=== PATIENT | female | born 1950 | race Caucasian/White ===

== ENCOUNTER 2020-02-07 16:46 | Observation (INO) | payer OTHER ==
[2020-02-07] MEDS ORDERED: MORPHINE 4 MG/ML SYR ONE (17:02)
[2020-02-07] MEDS ORDERED: METOPROLOL TARTRATE 5 MG/5 ML INJ IV ONE (17:02)
[2020-02-07] MEDS ORDERED: ONDANSETRON 4 MG/2 ML VIAL ONE (17:02)
[2020-02-07] MEDS ORDERED: RSI MEDICATION KIT IV ONE (17:03)
[2020-02-07] MEDS ORDERED: ENOXAPARIN 80 MG/0.8 ML SQ ONE (17:05)
[2020-02-07 17:12] LABS: Absolute Lymphocytes (CBC) 0.9 K/uL (0.7-4.9); Basophils % 0.3 % (0-1.3); Hematocrit 49.4 % (36.0-45.0); Lymphocytes % 5.4 % (15.3-44.8); MPV 8.5 fL (7.6-11.3); RBC Red Blood Cell Count 5.23 M/uL (3.86-4.86)
[2020-02-07] MEDS ORDERED: ETOMIDATE 20 MG/10 ML VIAL IV ONE (17:12)
[2020-02-07] MEDS ORDERED: FENTANYL CITR 100 MCG/2 ML ONE (17:12)
[2020-02-07] MEDS ORDERED: NA CHLORIDE 0.9% 1,000 ML ONE (17:16)
[2020-02-07 17:34] LABS: Bilirubin Direct 1.8 mg/dL (0-0.2); Bilirubin Total 4.6 mg/dL (0.2-1.0); Magnesium 1.7 mg/dL (1.8-2.4); Potassium 3.8 mmol/L (3.5-5.1); Protein, Total 7.7 g/dL (6.4-8.2); Troponin (Emerg Dept Use Only) 0.13 ng/mL (0.0-0.045)
--- NOTE | 2020-02-07 17:34 | RAD REPORT ---
EXAM DESCRIPTION: RAD - Chest Single View - 02/07/2020 5:24 pm CLINICAL HISTORY: Chest pain;Dyspnea COMPARISON: June 2017 TECHNIQUE: AP portable chest image was obtained 02/07/2020 5:24 pmin supine positioning . FINDINGS: Lung volumes are low. Body habitus and under penetrated technique further limit the examin ation. Bilateral pleural effusions are present. Fluid is present along the right-side fissure. Resuscitation paddles overlie the left side of the chest. Cardiac silhouette is enlarged. Vascular engorgement is present. Trachea is midline. No measurable pleural effusion and no pneumothorax. No acute bony abnorm ality seen. No acute aortic findings suspected. IMPRESSION: Limited supine portable study showing CHF/ volume overload findings with bilateral pleur al effusions.
[2020-02-07 17:36] LABS: Protime INR 1.53
--- NOTE | 2020-02-07 18:07 | ER ---
Nurse's Notes [facility] Name: Aimee Flaherty Age: 69 yrs Sex: Female : 1950 Arrival Date: 02/07/2020 Time: 16:49 Bed 3 Private MD: Diagnosis: Atrial fibrillation and flutter;Non-ST elevation (NSTEMI) myocardial infarction;Unspecified systolic (congestive) heart failure Presentation: 02/06 16:49 Chief complaint: EMS states: CP and SOB since this morning. HR 95-160, ABP70s, R30s, ph SpO2 94% on RA, improved to 96% on 2LNC. Coronavirus screen: shortness of breath, Client presents with at least one sign or symptom that may indicate coronavirus-19. Standard/surgical mask placed on the client. Provider contacted for isolation considerations. Ebola Screen: No symptoms or risks identified at this time. Onset of symptoms was February 07, 2020. 16:49 Method Of Arrival: EMS: [facility] ph 16:49 Acuity: TISH 1 ph 17:24 Initial Sepsis Screen: Does the patient meet any 2 criteria? RR > 20 per min. HR > 90 ph bpm. Does the patient have a suspected source of infection? No. Patient's initial sepsis screen is negative. Risk Assessment: Do you want to hurt yourself or someone else? Patient reports no desire to harm self or others. Historical: - Allergies: 16:58 No Known Allergies; ph - Home Meds: 16:58 carvedilol Oral [Active]; Lovastatin Oral [Active]; ph - PMHx: 16:58 Cirrhosis; Hypertension; ph - PSHx: 16:58 cataracts; ph - Immunization history:: Adult Immunizations up to date. - Social history:: Smoking status: Patient denies any tobacco usage or history of. Screenin:23 Abuse screen: Denies threats or abuse. Denies injuries from another. Nutritional ph screening: No deficits noted. Tuberculosis screening: No symptoms or risk factors identified. Fall Risk None identified. Assessment: 17:00 General: Appears distressed, uncomfortable, well groomed, Behavior is cooperative, ph anxious, Denies fever, feeling ill. Pain: Complains of pain in chest, beneath alexander breast. Neuro: Level of Consciousness is awake, alert, obeys commands, Oriented to person, place, time, situation. Cardiovascular: Reports chest pain, lightheadedness, nausea, palpitations, shortness of breath, Capillary refill is sluggish Patient's skin is warm and dry. Rhythm is atrial fibrillation with rapid ventricular response Chest pain quality is heaviness, sharp, is located in right left anterior chest wall. Respiratory: Reports shortness of breath at rest Airway is patent Respiratory effort is even, shallow, Respiratory pattern is tachypnea Denies cough. GI: Reports nausea, Patient currently denies abdominal pain, vomiting. Derm: Skin is intact, is healthy with good turgor, Skin is pink, warm \T\ dry. Musculoskeletal: Circulation, motion, and sensation intact. Range of motion: intact in all extremities. 17:10 Reassessment: Dr Greer at bedside for cardioversion. ph 18:00 Reassessment: Patient appears in no apparent distress at this time. Pt AOx3, on personal cell phone talking to family. 18:52 Reassessment: Patient appears in no apparent distress at this time. Patient and/or ph family updated on plan of care and expected duration. Pain level reassessed. Patient is alert, oriented x 3, equal unlabored respirations, skin warm/dry/pink. Vital Signs: 16:49 Pulse 159; Resp 31; Pulse Ox 97% 2 lpm ; Weight 75 kg; ph 17:22 BP 100 / 71; Pulse 74; Resp 24; Pulse Ox 100% on Non-rebreather mask; Weight 76.2 kg; ph 18:00 BP 114 / 64; Pulse 82; Resp 27; Pulse Ox 98% on 2 lpm NC; hb 18:30 BP 95 / 68; Pulse 81; Resp 16; Pulse Ox 97% on 2 lpm NC; ph 18:52 BP 105 / 57; Pulse 81; Resp 18; Pulse Ox 96% on 2 lpm NC; ph 19:30 BP 103 / 63; Pulse 81; Resp 21; Temp 98.9; Pulse Ox 100% on 2 lpm NC; rv 20:00 BP 105 / 68; Pulse 80; Resp 20; Pulse Ox 98% on 2 lpm NC; rv 20:30 BP 105 / 64; Pulse 81; Resp 21; Temp 99; Pulse Ox 97% on 2 lpm NC; rv Vitals: 17:22 Cardiac Rhythm Assessment Regular. ph ED Course: 16:49 Patient arrived in ED. em1 16:49 EKG done, by ED staff, reviewed by Bret CARREON. dh3 16:55 Triage completed. ph 16:55 Inserted saline lock: 20 gauge in right antecubital area, using aseptic technique. ph Blood collected. 16:58 Arm band placed on. ph 16:58 Patient has correct armband on for positive identification. Placed in gown. Bed in low hb position. Call light in reach. Side rails up X 1. 17:00 Efraín Garvin PA is PHCP. cp 17:00 Gabino Greer MD is Attending Physician. cp 17:10 Assist provider with cardioversion (synchronized) with pads, for treatment of A fib ph with 200 joules Set up for procedure. Performed by Gabino Greer MD Monitored with desk monitor, pulse ox, Post procedure rhythm is sinus rhythm. Patient tolerated well. Oxygen administration via non-rebreather mask \T\ 15L/min. 17:15 Gabino Greer MD is Attending Physician. kdr 17:17 Alida Christianson, TAMMI is Primary Nurse. ph 17:17 Inserted saline lock: 18 gauge in left wrist, using aseptic technique. hb 17:24 XRAY Chest (1 view) In Process Unspecified. EDMS 18:05 Yuriy Crockett DO is Hospitalizing Provider. kdr 20:49 IV is patent, with fluids infusing freely, Patient admitted, IV remains in place. rv Administered Medications: 16:52 Drug: Lopressor 5 mg Route: IVP; Site: right antecubital; ph 16:55 Drug: Zofran (Ondansetron) 4 mg Route: IVP; Site: right antecubital; ph 18:54 Follow up: Response: No adverse reaction ph 16:56 Drug: morphine 2 mg Route: IVP; Site: right antecubital; ph 17:30 Follow up: Response: No adverse reaction ph 16:57 Drug: Lovenox 1 mg/kg Route: Sub-Q; Site: abdomen; ph 18:54 Follow up: Response: No adverse reaction ph 16:58 Drug: Lopressor 5 mg Route: IVP; Site: right antecubital; hb 17:00 Follow up: Response: No adverse reaction; Cardiac rhythm is unchanged ph 17:00 Drug: Lopressor 5 mg Route: IVP; Site: right antecubital; ph 17:05 Follow up: Response: No adverse reaction; Cardiac rhythm is unchanged ph 17:08 Drug: fentaNYL (PF) 50 mcg Route: IVP; Site: right antecubital; ph 18:55 Follow up: Response: No adverse reaction ph 17:09 Drug: Etomidate 10 mg Route: IVP; Site: right antecubital; ph 17:10 Follow up: Response: No adverse reaction; RASS: Light sedation (-2) ph Outcome: 18:07 Decision to Hospitalize by Provider. kdr 20:48 Admitted to Tele accompanied by tech, via stretcher, room 404, with chart, Report rv called to CATALINA CADENA 20:48 Condition: stable 20:48 Instructed on the need for admit. 20:49 Patient left the ED. rv Signatures: Dispatcher [employer] Gabino Pyle MD MD kdr Martinez, Eric em1 Alida Christianson RN RN Efraín Brandon PA PA cp Baxter, Heather, RN RN Radha Bellamy [facility] Naga Ho, RN RN rv
--- NOTE | 2020-02-07 18:07 | EDPHYS ---
Physician Documentation [facility] Name: Aimee Flaherty Age: 69 yrs Sex: Female : 1950 Arrival Date: 02/07/2020 Time: 16:49 Bed 3 Private MD: ED Physician Gabino Greer HPI: 02/06 18:07 This 69 yrs old Female presents to ER via EMS with complaints of Breathing kdr Difficulty, Chest Pain. 18:07 The patient has shortness of breath at rest. Onset: The symptoms/episode began/occurred kdr this morning, On awakening. Duration: The symptoms are continuous, and are steadily getting worse. The patient's shortness of breath has no apparent modifying factors. Associated signs and symptoms: The patient has no apparent associated signs or symptoms. Severity of symptoms: At their worst the symptoms were moderate severe incapacitating. The patient has not experienced similar symptoms in the past. The patient has not recently seen a physician. Historical: - Allergies: 16:58 No Known Allergies; ph - Home Meds: 16:58 carvedilol Oral [Active]; Lovastatin Oral [Active]; ph - PMHx: 16:58 Cirrhosis; Hypertension; ph - PSHx: 16:58 cataracts; ph - Immunization history:: Adult Immunizations up to date. - Social history:: Smoking status: Patient denies any tobacco usage or history of. ROS: 18:07 Constitutional: Negative for fever, chills, and weight loss, Eyes: Negative for injury, kdr pain, redness, and discharge, ENT: Negative for injury, pain, and discharge, Neck: Negative for injury, pain, and swelling, Abdomen/GI: Negative for abdominal pain, nausea, vomiting, diarrhea, and constipation, Back: Negative for injury and pain, : Negative for injury, bleeding, discharge, and swelling, MS/Extremity: Negative for injury and deformity, Skin: Negative for injury, rash, and discoloration, Neuro: Negative for headache, weakness, numbness, tingling, and seizure activity. Exam: 02/07 14:21 Constitutional: This is a well developed, well nourished patient who is awake, alert, kdr and in moderate distress. Head/Face: Normocephalic, atraumatic. Eyes: Pupils equal round and reactive to light, extra-ocular motions intact. Lids and lashes normal. Conjunctiva and sclera are non-icteric and not injected. Cornea within normal limits. Periorbital areas with no swelling, redness, or edema. Neck: Trachea midline, no thyromegaly or masses palpated, and no cervical lymphadenopathy. Supple, full range of motion without nuchal rigidity, or vertebral point tenderness. No Meningismus. Chest/axilla: Normal chest wall appearance and motion. Nontender with no deformity. No lesions are appreciated. Abdomen/GI: Soft, non-tender, with normal bowel sounds. No distension or tympany. No guarding or rebound. No evidence of tenderness throughout. Back: No spinal tenderness. No costovertebral tenderness. Full range of motion. Skin: Warm, dry with normal turgor. Normal color with no rashes, no lesions, and no evidence of cellulitis. MS/ Extremity: Pulses equal, no cyanosis. Neurovascular intact. Full, normal range of motion. Neuro: Awake and alert, GCS 15, oriented to person, place, time, and situation. Cranial nerves II-XII grossly intact. Motor strength 5/5 in all extremities. Sensory grossly intact. Cerebellar exam normal. Normal gait. Psych: Awake, alert, with orientation to person, place and time. Behavior, mood, and affect are within normal limits. Cardiovascular: Rate: tachycardic, actual rate is 140 bpm, Rhythm: irregularly irregular, Pulses: thready, weak, Heart sounds: Edema: 1+ edema to level of left midcalf, left ankle, left foot, right midcalf, right ankle and right foot. ECG was reviewed by the Attending Physician. Respiratory: moderate respiratory distress is noted, Respirations: labored breathing, that is mild, Breath sounds: rales, that are mild, are heard diffusely. Abdomen/GI: Inspection: obese Bowel sounds: active, diminished, in all quadrants. Vital Signs: 02/06 16:49 Pulse 159; Resp 31; Pulse Ox 97% 2 lpm ; Weight 75 kg; ph 17:22 BP 100 / 71; Pulse 74; Resp 24; Pulse Ox 100% on Non-rebreather mask; Weight 76.2 kg; ph 18:00 BP 114 / 64; Pulse 82; Resp 27; Pulse Ox 98% on 2 lpm NC; hb 18:30 BP 95 / 68; Pulse 81; Resp 16; Pulse Ox 97% on 2 lpm NC; ph 18:52 BP 105 / 57; Pulse 81; Resp 18; Pulse Ox 96% on 2 lpm NC; ph 19:30 BP 103 / 63; Pulse 81; Resp 21; Temp 98.9; Pulse Ox 100% on 2 lpm NC; rv 20:00 BP 105 / 68; Pulse 80; Resp 20; Pulse Ox 98% on 2 lpm NC; rv 20:30 BP 105 / 64; Pulse 81; Resp 21; Temp 99; Pulse Ox 97% on 2 lpm NC; rv Procedures: 02/07 14:21 Moderate sedation: Pre-procedure assessment: the patient has been NPO an unknown amount kdr of time prior to arrival, ASA physical classification: III - organic disease with definite functional impairment, Airway assessment: able to maintain airway, Mallampati classification of tongue size: III - uvula can be visualized, but faucial pillars and soft palate are not appreciated, Monitoring during procedure: Medications employed: Etomidate, 10 mg(s), Fentanyl, 50 mcg(s), Post-procedure assessment: the patient is moderately sedated, Respiratory status: requires supplemental oxygen to maintain acceptable oxygen saturation, a reversal agent was not used. MDM: 02/06 18:07 Patient medically screened. kdr 02/07 14:21 Data reviewed: vital signs, nurses notes, lab test result(s), EKG, radiologic studies. kdr Counseling: I had a detailed discussion with the patient and/or guardian regarding: the historical points, exam findings, and any diagnostic results supporting the discharge/admit diagnosis, lab results, radiology results. 02/06 16:55 Order name: Basic Metabolic Panel; Complete Time: 18:04 ph 02/06 16:55 Order name: CBC with Diff ph 02/06 16:55 Order name: LFT's; Complete Time: 18:04 ph 02/06 16:55 Order name: Magnesium; Complete Time: 18:04 ph 02/06 16:55 Order name: NT PRO-BNP; Complete Time: 18:04 ph 02/06 16:55 Order name: PT-INR; Complete Time: 18:04 ph 02/06 16:55 Order name: Troponin (emerg Dept Use Only); Complete Time: 18:04 ph 02/06 16:55 Order name: XRAY Chest (1 view); Complete Time: 18:04 ph 02/06 19:45 Order name: CBC Smear Scan EDMS 02/06 20:06 Order name: COVID-19 bb 02/06 16:55 Order name: EKG; Complete Time: 16:56 ph 02/06 16:55 Order name: Cardiac monitoring; Complete Time: 16:57 ph 02/06 16:55 Order name: EKG - Nurse/Tech; Complete Time: 16:57 ph 02/06 16:55 Order name: IV Saline Lock; Complete Time: 16:58 ph 02/06 16:55 Order name: Labs collected and sent; Complete Time: 16:58 ph 02/06 16:55 Order name: O2 Per Protocol; Complete Time: 16:58 ph 02/06 16:55 Order name: O2 Sat Monitoring; Complete Time: 16:58 ph EC:21 Rate is 140 beats/min. Rhythm is irregularly irregular, A fib with Left bundle branch kdr block. QRS [address] is Normal. MO interval is normal. QRS interval is normal. QT interval is normal. Clinical impression: Atrial Fibrillation. Administered Medications: 02/06 16:52 Drug: Lopressor 5 mg Route: IVP; Site: right antecubital; ph 16:55 Drug: Zofran (Ondansetron) 4 mg Route: IVP; Site: right antecubital; ph 18:54 Follow up: Response: No adverse reaction ph 16:56 Drug: morphine 2 mg Route: IVP; Site: right antecubital; ph 17:30 Follow up: Response: No adverse reaction ph 16:57 Drug: Lovenox 1 mg/kg Route: Sub-Q; Site: abdomen; ph 18:54 Follow up: Response: No adverse reaction ph 16:58 Drug: Lopressor 5 mg Route: IVP; Site: right antecubital; hb 17:00 Follow up: Response: No adverse reaction; Cardiac rhythm is unchanged ph 17:00 Drug: Lopressor 5 mg Route: IVP; Site: right antecubital; ph 17:05 Follow up: Response: No adverse reaction; Cardiac rhythm is unchanged ph 17:08 Drug: fentaNYL (PF) 50 mcg Route: IVP; Site: right antecubital; ph 18:55 Follow up: Response: No adverse reaction ph 17:09 Drug: Etomidate 10 mg Route: IVP; Site: right antecubital; ph 17:10 Follow up: Response: No adverse reaction; RASS: Light sedation (-2) ph Disposition: 02/07 14:21 Critical Care:. kdr Disposition: 02/07/20 18:07 Hospitalization ordered by Yuriy Crockett for Observation. Preliminary diagnosis are Atrial fibrillation and flutter, Non-ST elevation (NSTEMI) myocardial infarction, Unspecified systolic (congestive) heart failure. - Bed requested for Telemetry/MedSurg (Inpatient). - Status is Observation. rv - Condition is Fair. - Problem is new. - Symptoms have improved. Critical care time excluding procedures: 14:21 Critical care time: Bedside Care: 45 minutes, Consultation: 5 minutes. Total time: 50 kdr minutes Signatures: Dispatcher [employer] EDMS Gabino Greer MD MD kdr Edd Hadley, CERTIFIED REAL ESTATE APPRAISER-C CERTIFIED REAL ESTATE APPRAISER-Cla1 Alida Christianson RN RN Wanda Campoverde RN RN Renee Leal mw2 Naga Ho RN RN rv Corrections: (The following items were deleted from the chart) 02/06 20:28 18:07 Hospitalization Ordered by Yuriy Crockett DO for Observation. Preliminary mw2 diagnosis is Atrial fibrillation and flutter; Non-ST elevation (NSTEMI) myocardial infarction; Unspecified systolic (congestive) heart failure. Bed requested for Telemetry/MedSurg (Inpatient). Status is Observation. Condition is Fair. Problem is new. Symptoms have improved. kdr 20:49 20:28 02/07/2020 18:07 Hospitalization Ordered by Yuriy Crockett DO for Observation. rv Preliminary diagnosis is Atrial fibrillation and flutter; Non-ST elevation (NSTEMI) myocardial infarction; Unspecified systolic (congestive) heart failure. Bed requested for Telemetry/MedSurg (Inpatient). Status is Observation. Condition is Fair. Problem is new. Symptoms have improved. mw2
--- NOTE | 2020-02-07 19:12 | P.HP ---
Certification for Inpatient Patient admitted to: Observation With expected LOS: <2 Midnights Patient will require the following post-hospital care: None Practitioner: I am a practitioner with admitting privileges, knowledge of patient current condition, hospital course, and medical plan of care. Services: Services provided to patient in accordance with Admission requirements found in Title 42 Section 412.3 of the Code of Federal Regulations <Edd Hadley - Last Filed: 02/07/20 19:05> Patient admitted to: Observation With expected LOS: <2 Midnights <Yuriy Crockett - Last Filed: 02/08/20 14:25> Patient History Date of Service: 02/07/20 Primary Care Provider: PCP-Dr. Joiner cardiology-Dr. Reynolds Reason for admission: AFib RVR History of Present Illness: 69-year-old female with history of chronic diastolic congestive heart failure, alcoholic cirrhosis of the liver, hypertension presents emergency department for shortness of breath and generalized weakness. Patient was found to have elevated heart rate at around 170. Initial EKG shows irregularly irregular rhythm that was interpreted as atrial fibrillation with rapid ventricular response and aberrancy. Patient required electrical cardioversion. After cardioversion patient was successfully converted to sinus rhythm with a rate of around 75. Patient's labs were significant for elevated troponin level at 0.13. Patient also noted to have elevated T bili level likely secondary to alcoholic cirrhosis. ED provider wishes to admit patient for further evaluation and management. When I saw the patient in the emergency department she was awake, alert, oriented x3. Vital signs stable this time. Patient be admitted for further evaluation and management. Patient denies any GI symptoms, melena, vomiting. - Past Medical/Surgical History Diabetic: No -: Alcoholic cirrhosis -: Hypertension -: Hyperlipidemia -: Iron def. Anemia -: Esophageal varices -: GERD -: Murmur -: Chronic diastolic congestive heart failure -: Cataract -: Colonoscopy -: EGD Psychosocial/ Personal History: Patient currently lives at home - Family History Father -: Heart disease Notes: heart attack Brother -: Heart disease Notes: CAD Mother -: Hypertension - Social History Smoking Status: Never smoker Alcohol use: Yes CD- Drugs: No Caffeine use: Yes Place of Residence: Home <Edd Hadley - Last Filed: 02/07/20 19:05> Date of Service: 02/08/20 <Yuriy Crockett - Last Filed: 02/08/20 14:25> Allergies No Known Allergies Allergy (Unverified 06/30/17 11:42) Home Medications: Pantoprazole Sodium [Protonix] 40 mg PO DAILY #30 tablet. 07/14/14 Apixaban [Eliquis] 5 mg PO BID #60 tablet 02/08/20 Furosemide [Lasix] 40 mg PO DAILY #30 tablet 02/08/20 Metoprolol Tartrate [Lopressor*] 25 mg PO BID 6AM 6PM #60 tab 02/08/20 Spironolactone [Aldactone*] 25 mg PO DAILY #30 tab 02/08/20 Review of Systems 10-point ROS is otherwise unremarkable General: Weakness, Malaise <Edd Hadley - Last Filed: 02/07/20 19:05> Physical Examination - Physical Exam General: Alert, In no apparent distress, Oriented x3 HEENT: Atraumatic, Normocephalic, PERRLA, Mucous membr. moist/pink Neck: Supple Respiratory: Clear to auscultation bilaterally, Diminished (Bilaterally) Cardiovascular: Normal pulses, Regular rate/rhythm, Normal S1 S2 Capillary refill: <2 Seconds Gastrointestinal: Normal bowel sounds, Soft and benign Musculoskeletal: No contractures, No erythema, No tenderness Integumentary: No significant lesion, No tenderness/swelling, No erythema Neurological: Normal speech, Normal strength at 5/5 x4 extr, Normal tone, Sensation intact - Studies Laboratory Data (last 24 hrs) 02/07/20 17:01: PT 17.9 H, INR 1.53 02/07/20 17:01: WBC 16.9 H, Hgb 16.3 H, Hct 49.4 H, Plt Count 142 L 02/07/20 17:01: Sodium 139, Potassium 3.8, BUN 18, Creatinine 1.14, Glucose 111 H, Magnesium 1.7 L, Total Bilirubin 4.6 H, AST 38 H, ALT 29, Alkaline Phosphatase 138 H <Edd Hadley - Last Filed: 02/07/20 19:05> - Studies Laboratory Data (last 24 hrs) 02/07/20 17:01: PT 17.9 H, INR 1.53 02/07/20 17:01: WBC 16.9 H, Hgb 16.3 H, Hct 49.4 H, Plt Count 142 L 02/07/20 17:01: Sodium 139, Potassium 3.8, BUN 18, Creatinine 1.14, Glucose 111 H, Magnesium 1.7 L, Total Bilirubin 4.6 H, AST 38 H, ALT 29, Alkaline Phosphatase 138 H <Yuriy Crockett - Last Filed: 02/08/20 14:25> Assessment and Plan - Plan Assessment AFib RVR S/P electrical cardioversion, now in sinus rhythm: Chronic diastolic congestive heart failure Alcoholic cirrhosis Hypertension Hyperlipidemia Plan AFib RVR S/P electrical cardioversion, now in sinus rhythm: Patient now in sinus rhythm, troponin mildly elevated at 0.13. Will trend troponin levels, cardiology consult in place. Echocardiogram ordered. Will continue with beta- carlos therapy metoprolol 25 mg p.o. b.i.d.. Will also initiate daily aspirin at this time. Patient be monitored on telemetry throughout this hospitalization. DVT prophylaxis Lovenox 40 mg subcutaneous once daily. Appreciate further input from cardiology. Possible discharge as early as tomorrow. Chronic diastolic congestive heart failure: Most recent echocardiogram in 2018 shows left ventricular ejection fraction of 77%. Will repeat echocardiogram. Appreciate further input from cardiology. Alcoholic cirrhosis: Appears stable this time, will continue to monitor closely. Patient alert, oriented x3. No signs of GI bleeding at this time. Hypertension: Obtain and continue patient's home medications. Continue beta- carlos therapy. Hyperlipidemia: Obtain and continue patient's home medications. Discharge Plan: Home Plan to discharge in: 24 Hours - Advance Directives Does patient have a Living Will: No Does patient have a Durable POA for Healthcare: No - Code Status/Comfort Care Code Status Assessed: Yes (Patient is full code) Critical Care: No Time Spent Managing Pts Care (In Minutes): 55 <Edd Hadley - Last Filed: 02/07/20 19:05> - Plan Case discussed in detail with nurse practitioner. Continue with plan of care. Discontinue IV fluids. Will provide Lasix. <Yuriy Crockett - Last Filed: 02/08/20 14:25>
[2020-02-07 19:45] LABS: Blood Morphology Comment NOT SEEN (NOT SEEN); Platelet Estimate ADEQ; White Blood Cell Scan OK (OK)
[2020-02-07] MEDS ORDERED: ACETAMINOPHEN 500 MG TAB PO PRN (21:27)
[2020-02-07] MEDS ORDERED: NA CHLORIDE 0.9% 1,000 ML IV SCH (21:27)
[2020-02-07] MEDS ORDERED: ONDANSETRON 4 MG/2 ML VIAL IV PRN (21:27)
[2020-02-07] MEDS ORDERED: MAGNESIUM SULFATE 1 gm IVPB 1 GM/100 ML BAG IV ONE (23:24)
[2020-02-07 23:33] VITALS: BMI 31.8
[2020-02-08 04:08] LABS: Potassium 3.8 mmol/L (3.5-5.1); Thyroid Stimulating Hormone 0.934 uIU/mL (0.360-3.740)
[2020-02-08 04:09] LABS: Absolute Lymphocytes (CBC) 0.6 K/uL (0.7-4.9); Basophils % 0.4 % (0-1.3); Hematocrit 45.8 % (36.0-45.0); MPV 8.9 fL (7.6-11.3); RBC Red Blood Cell Count 4.86 M/uL (3.86-4.86)
[2020-02-08 04:35] LABS: Barbiturates NEGATIVE (NEGATIVE); Benzodiazepines NEGATIVE (NEGATIVE); Cocaine NEGATIVE (NEGATIVE); METHAMPHETAM NEGATIVE (NEGATIVE); Methadone NEGATIVE (NEGATIVE); Opiates NEGATIVE (NEGATIVE); Phencyclidine NEGATIVE (NEGATIVE); THC Cannibis NEGATIVE (NEGATIVE)
[2020-02-08] MEDS ORDERED: METOPROLOL TAR 25 MG TAB PO SCH (06:00)
[2020-02-08 08:11] VITALS: O2SAT 92
[2020-02-08] MEDS ORDERED: ASPIRIN EC 81 MG TAB PO SCH (09:00)
[2020-02-08] MEDS: FUROSEMIDE 40 MG/4 ML VIAL IV SCH ×2 (09:00→09:41)
[2020-02-08] MEDS ORDERED: SPIRONOLACTONE 25 MG TABLET PO SCH (09:00)
[2020-02-08] MEDS ORDERED: FUROSEMIDE 40 MG/4 ML VIAL IV SCH (09:00)
--- NOTE | 2020-02-08 09:37 | RAD REPORT ---
EXAM DESCRIPTION: US - Liver Only - 02/08/2020 7:42 am CLINICAL HISTORY: Elevated Liver fxn, Elevated Bilirubin COMPARISON: No comparisons FINDINGS: The liver is heterogenous in echotexture with a nodular liver contour and is somewhat smal l in size compatible with liver cirrhosis.No focal liver lesion or intrahepatic biliary dilatation.No evidence of portal vein thrombosis. Numerous gallstones are seen in the gallbladder. IMPRESSION: Prominent liver cirrhosis. Cholelithiasis.
--- NOTE | 2020-02-08 11:11 | EKG ---
Test Date: 2020-02-07 Test Time: 17:11:03 [place] [employer]: MEASUREMENT RESULTS: Intervals: Rate: 74 LA: 184 QRSD: 124 QT: 426 QTc: 472 [place]: P: 50 LA: 184 QRS: 22 T: 243 INTERPRETIVE STATEMENTS: Normal sinus rhythm Left bundle branch block Abnormal ECG Compared to ECG 02/07/2020 17:10:05 Atrial flutter no longer present Electronically Signed On 02-08-20 11:10:15 CDT by Prakash Reynolds
--- NOTE | 2020-02-08 11:12 | EKG ---
Test Date: 2020-02-07 Test Time: 17:10:05 Reservations Manager: MEASUREMENT RESULTS: Intervals: Rate: 69 OR: QRSD: 122 QT: 418 QTc: 447 [place]: P: 76 OR: QRS: 21 T: 189 INTERPRETIVE STATEMENTS: Atrial flutter with variable AV block Left bundle branch block Abnormal ECG Compared to ECG 02/07/2020 16:49:16 Atrial fibrillation no longer present Ventricular premature complex(es) no longer present Electronically Signed On 02-08-20 11:10:16 CDT by Prakash Reynolds
--- NOTE | 2020-02-08 11:12 | EKG ---
Test Date: 2020-02-07 Test Time: 16:49:16 Income Tax Manager: RADHA MEASUREMENT RESULTS: Intervals: Rate: 162 GA: QRSD: 134 QT: 320 QTc: 525 [place]: P: GA: QRS: -10 T: 153 INTERPRETIVE STATEMENTS: Atrial fibrillation with rapid ventricular response with premature ventricular or aberrantly conducted complexes Left bundle branch block Abnormal ECG Compared to ECG 05/10/2018 10:55:35 Ventricular premature complex(es) now present Left bundle-branch block now present Sinus rhythm no longer present Intraventricular conduction delay no longer present Myocardial infarct finding no longer present T-wave abnormality no longer present Electronically Signed On 02-08-20 11:10:17 CDT by Prakash Reynolds
--- NOTE | 2020-02-08 11:26 | ECHO ---
HEIGHT: 5 ft 1 in WEIGHT: 168 lb 4.8 oz DATE OF STUDY: 02/08/[address]: Yuriy Crockett DO 2-DIMENSIONAL: YES M.MODE: YES DOPPLER: YES COLOR FLOW: YES TDS: YES PORTABLE: NO DEFINITY: NO BUBBLE STUDY: NO DIAGNOSIS: ATRIAL FIBRILLATION WITH RAPID VENTRICULAR RESPONSE, ELEVATED TROPONIN CARDIAC HISTORY: CATHERIZATION: NO SURGERY: NO PROSTHETIC VALVE: NO PACEMAKER: NO MEASUREMENTS (cm) DIASTOLIC (NORMALS) SYSTOLIC (NORMALS) IVSd 1.0 (0.6-1.2) LA Diam 3.8 (1.9-4.0) LVEF 66% LVIDd 2.3 (3.5-5.7) LVIDs 1.5 (2.0-3.5) %FS 34% LVPWd 1.2 (0.6-1.2) Ao Diam 2.1 (2.0-3.7) 2 DIMENSIONAL ASSESSMENT: RIGHT ATRIUM: NORMAL LEFT ATRIUM: NORMAL RIGHT VENTRICLE: NORMAL LEFT VENTRICLE: NORMAL TRICUSPID VALVE: NORMAL MITRAL VALVE: MITRAL ANNULAR CALCIFICATION PULMONIC VALVE: NORMAL AORTIC VALVE: SCLEROSIS PERICARDIAL EFFUSION: NONE AORTIC ROOT: NORMAL LEFT VENTRICULAR WALL MOTION: NORMAL DOPPLER/COLOR FLOW: NORMAL COMMENTS: TECHNICALLY DIFFICULT STUDY. NORMAL LEFT VENTRICULAR SIZE AND FUNCTION. MITRAL ANNULAR CALCIFICATION. AORTIC SCLEROSIS WITH NO STENOSIS. TECHNOLOGIST: Chance MALONEY
[2020-02-08 12:11] VITALS: BP 132/65; TEMP 97.7
--- NOTE | 2020-02-08 14:15 | P.DS ---
Admission Date: 02/07/20 Discharge Date: 02/08/20 Primary Care Provider: PCP-Dr. Joiner cardiology-Dr. Reynolds Disposition: ROUTINE DISCHARGE Discharge Condition: GOOD Reason for Admission: AFib RVR Consultations: Cardiology-Dr. Reynolds Procedures: ECHO: EF 56% LEFT VENTRICULAR WALL MOTION: NORMAL DOPPLER/COLOR FLOW: NORMAL COMMENTS: TECHNICALLY DIFFICULT STUDY. NORMAL LEFT VENTRICULAR SIZE AND FUNCTION. MITRAL ANNULAR CALCIFICATION. AORTIC SCLEROSIS WITH NO STENOSIS. Liver US: FINDINGS: The liver is heterogenous in echotexture with a nodular liver contour and is somewhat small in size compatible with liver cirrhosis.No focal liver lesion or intrahepatic biliary dilatation.No evidence of portal vein thrombosis. Numerous gallstones are seen in the gallbladder. IMPRESSION: Prominent liver cirrhosis. Cholelithiasis. Medical Problem List: Atrial fibrillation with RVR status post cardioversion now normal sinus rhythm Dyspnea secondary to acute on chronic diastolic CHF Chronic liver cirrhosis alcohol-related GERD Obesity BMI 31.8 Brief History of Present Illness: 69-year-old female with history of chronic diastolic congestive heart failure, alcoholic cirrhosis of the liver, hypertension presents emergency department for shortness of breath and generalized weakness. Patient was found to have elevated heart rate at around 170. Initial EKG shows irregularly irregular rhythm that was interpreted as atrial fibrillation with rapid ventricular response and aberrancy. Patient required electrical cardioversion. After cardioversion patient was successfully converted to sinus rhythm with a rate of around 75. Patient's labs were significant for elevated troponin level at 0.13. Patient also noted to have elevated T bili level likely secondary to alcoholic cirrhosis. ED provider wishes to admit patient for further evaluation and management. Hospital Course: Patient presented with atrial fibrillation with RVR. Patient required electrical cardioversion. Patient now normal sinus rhythm. Patient also had dyspnea secondary to acute on chronic diastolic CHF. The patient was admitted for further evaluation and treatment. Cardiology was consulted. Echocardiogram shows ejection fraction 60%. Diastolic dysfunction noted. Cardiology recommends to discontinue aspirin and carvedilol. Patient was changed over to Eliquis and metoprolol. Patient in sinus rhythm. Patient received IV Lasix with improvement of symptoms. At discharge she is without significant chest pain or shortness of breath. Patient remains in sinus rhythm. At discharge she discontinue aspirin and carvedilol. This has been changed to metoprolol 25 mg 1 pill twice daily and Eliquis 5 mg 1 pill twice daily. Education on medications provided. Education on atrial fibrillation and Eliquis has been given. At discharge she will also continue with a 1500 cc per day fluid restriction and low-salt diet. Recommend to monitor her weight daily. For her CHF she will continue with Lasix 40 mg daily and Aldactone 25 mg daily. She is to follow up with her PCP to further monitor and address. Medication may need to be further adjusted. This can be further addressed by her PCP or cardiology. Patient with underlying alcoholic cirrhosis. Ultrasound of the liver indicated this. This appears chronic. Alcohol cessation education provided and encouraged. As mentioned above patient will continue with 1500 cc per day fluid restriction. She will continue with Lasix and Aldactone as described above. Recommend follow up with GI as an outpatient to further address. Patient with GERD. At discharge she will continue with Protonix 40 mg daily. Vital Signs/Physical Exam: Temp Pulse Resp BP Pulse Ox 97.7 F 69 16 132/65 92 02/08/20 12:00 02/08/20 12:00 02/08/20 12:00 02/08/20 12:00 02/08/20 12:00 General: Alert, In no apparent distress, Oriented x3, Cooperative HEENT: Atraumatic Neck: Supple Respiratory: Clear to auscultation bilaterally, Normal air movement Cardiovascular: Normal pulses, Regular rate/rhythm Gastrointestinal: Normal bowel sounds, No tenderness, No masses, No rebound, No guarding Musculoskeletal: No erythema, No tenderness, No warmth Integumentary: No tenderness/swelling, No erythema, No warmth, No cyanosis Neurological: Normal speech, Normal strength at 5/5 x4 extr, Normal tone, Normal affect Laboratory Data at Discharge: WBC 9.5 K/uL (4.3-10.9) D 02/08/20 03:31 Hgb 15.5 g/dL (12.0-15.0) H 02/08/20 03:31 Hct 45.8 % (36.0-45.0) H 02/08/20 03:31 Plt Count 98 K/uL (152-406) L D 02/08/20 03:31 PT 17.9 SECONDS (9.5-12.5) H 02/07/20 17:01 INR 1.53 02/07/20 17:01 Sodium 140 mmol/L (136-145) 02/08/20 03:31 Potassium 3.8 mmol/L (3.5-5.1) 02/08/20 03:31 BUN 17 mg/dL (7-18) 02/08/20 03:31 Creatinine 1.00 mg/dL (0.55-1.3) 02/08/20 03:31 Glucose 95 mg/dL (74-106) 02/08/20 03:31 Magnesium 1.7 mg/dL (1.8-2.4) L 02/07/20 17:01 Total Bilirubin 4.6 mg/dL (0.2-1.0) H 02/07/20 17:01 AST 38 U/L (15-37) H 02/07/20 17:01 ALT 29 U/L (12-78) 02/07/20 17:01 Alkaline Phosphatase 138 U/L (45-117) H 02/07/20 17:01 Troponin I 0.15 ng/mL (0.0-0.045) H 02/07/20 23:52 Triglycerides 90 mg/dL (<150) 02/08/20 03:31 Cholesterol 184 mg/dL (<200) 02/08/20 03:31 HDL Cholesterol 61 mg/dL (40-60) H 02/08/20 03:31 Cholesterol/HDL Ratio 3.02 02/08/20 03:31 Home Medications: Pantoprazole Sodium [Protonix] 40 mg PO DAILY #30 tablet. 07/14/14 Apixaban [Eliquis] 5 mg PO BID #60 tablet 02/08/20 Furosemide [Lasix] 40 mg PO DAILY #30 tablet 02/08/20 Metoprolol Tartrate [Lopressor*] 25 mg PO BID 6AM 6PM #60 tab 02/08/20 Spironolactone [Aldactone*] 25 mg PO DAILY #30 tab 02/08/20 New Medications: Spironolactone [Aldactone*] 25 mg PO DAILY #30 tab Apixaban [Eliquis] 5 mg PO BID #60 tablet Furosemide [Lasix] 40 mg PO DAILY #30 tablet Metoprolol Tartrate [Lopressor*] 25 mg PO BID 6AM 6PM #60 tab Patient Discharge Instructions: 1. Follow up with PCP in 1 week to follow up this hospitalization. 2. Patient presented with atrial fibrillation with RVR. Patient required electrical cardioversion. Patient now normal sinus rhythm. Patient also had dyspnea secondary to acute on chronic diastolic CHF. The patient was admitted for further evaluation and treatment. Cardiology was consulted. Echocardiogram shows ejection fraction 60%. Diastolic dysfunction noted. Cardiology recommends to discontinue aspirin and carvedilol. Patient was changed over to Eliquis and metoprolol. Patient in sinus rhythm. Patient received IV Lasix with improvement of symptoms. At discharge she is without significant chest pain or shortness of breath. Patient remains in sinus rhythm. At discharge she discontinue aspirin and carvedilol. This has been changed to metoprolol 25 mg 1 pill twice daily and Eliquis 5 mg 1 pill twice daily. Education on medications provided. Education on atrial fibrillation and Eliquis has been given. At discharge she will also continue with a 1500 cc per day fluid restriction and low-salt diet. Recommend to monitor her weight daily. For her CHF she will continue with Lasix 40 mg daily and Aldactone 25 mg daily. She is to follow up with her PCP to further monitor and address. Medication may need to be further adjusted. This can be further addressed by her PCP or cardiology. 3. Patient with underlying alcoholic cirrhosis. Ultrasound of the liver indicated this. This appears chronic. Alcohol cessation education provided and encouraged. As mentioned above patient will continue with 1500 cc per day fluid restriction. She will continue with Lasix and Aldactone as described above. Recommend follow up with GI as an outpatient to further address. 4. Patient with GERD. At discharge she will continue with Protonix 40 mg daily. Diet: AHA Activity: Ad alfred Time spent managing pt's care (in minutes): 55
[2020-02-08] MEDS ORDERED: ENOXAPARIN 40 MG/0.4 ML SQ SCH (18:00)
[2020-02-09] MEDS ORDERED: PANTOPRAZOLE 40MG TABLET PO SCH (07:30)
--- NOTE | 2020-02-10 12:12 | CON ---
Date of Consultation: 02/08/2020 Admitted on 02/07/[address] Crockett' service. I saw the patient on 02/08/2020. Reason For Consultation: Atrial fibrillation with rapid ventricular response. History Of Present Illness: Ms. Flaherty is a 69-year-old woman. We have seen her in the past in the [facility]. She has known moderate aortic stenosis at 1.1 sq cm since 2018. She has a history of hyperte nsion and cirrhosis. Came in with rapid atrial fibrillation. She is already status post cardioversi on. She is in sinus rhythm now. She was taking Coreg at home. She had severe chest pain and palpit ation and shortness of breath with her atrial fibrillation, although that has resolved right now. Sh e denied any syncope. Denied any PND, orthopnea, or pedal edema. Past Medical History: As stated above that includes gastroesophageal reflux disease and hypertension and chronic diastolic congestive heart failure, cirrhosis, hypertension, and aortic stenosis. Allergies: NONE. Medications: At home include aspirin, Lasix, Aldactone, Coreg, and Protonix. Review of Systems: Negative. Social History: Negative. Family History: Negative. Physical Examination: General: She is very pleasant, no acute distress. Vital Signs: Sinus rhythm, afebrile. HEENT: Negative. Neck: Supple with no bruit. Chest: Clear. Cardiac: Revealed a regular rhythm and rate. No murmurs, gallops, or rubs. Abdomen: Benign. Extremities: Revealed no clubbing, cyanosis, or edema. Neurological: She was nonfocal. Skin: Dry and intact. Pulses were present distally bilaterally. Diagnostic Data: Initial white count was 16, it is now 9000. Troponin is 0.15. Her BNP is 9625. Impression And Plan: 1.New onset atrial fibrillation, resolved to sinus rhythm. I think the patient needs to be anticoag ulated with Xarelto or Eliquis and I will leave that up to Dr. Crockett. I think we need to switch her carvedilol to metoprolol 50 b.i.d. I think she needs an outpatient Lexiscan to rule out coronary ar da disease. Her troponin was elevated and her was elevated, most likely secondary to at rial fibrillation. She is not having any chest pain now. 2.Her other problems include hypertension, well controlled. 3.Cirrhosis, chronic. 4.Moderate aortic stenosis. She needs to have serial echocardiograms over the next few years. From my standpoint, Ms. Flaherty can go home on her home medication, but we should substitute Coreg with met oprolol, put her on Xarelto or Eliquis, and follow up in the office and get an echocardiogram today, schedule an outpatient stress test. TOLU/KJ Voice ID: [id number] Report ID: [id number]
== END 2020-02-08 15:39 | disposition home or self-care (01) ==
LOC: ER 16:46 → ERHOLD 18:43 → 4TH 20:46
PROVIDERS: ADMIT Family Medicine; ATTEND Family Medicine
DX: I48.20 Chronic atrial fibrillation, unspecified (principal); I11.0 Hypertensive heart disease with heart failure; I50.33 Acute on chronic diastolic (congestive) heart failure; J90 Pleural effusion, not elsewhere classified; K70.30 Alcoholic cirrhosis of liver without ascites; E78.5 Hyperlipidemia, unspecified; I70.0 Atherosclerosis of aorta; I35.0 Nonrheumatic aortic (valve) stenosis; K80.20 Calculus of gallbladder without cholecystitis without obstruction; K21.9 Gastro-esophageal reflux disease without esophagitis; I44.7 Left bundle-branch block, unspecified; E66.9 Obesity, unspecified; Z68.31 Body mass index [BMI] 31.0-31.9, adult; Z20.828 Contact with and (suspected) exposure to other viral communicable diseases; Z79.01 Long term (current) use of anticoagulants; Z79.82 Long term (current) use of aspirin; Z79.899 Other long term (current) drug therapy
CPT/HCPCS: 92960; 93005 ×3; 93306; 85025 ×2; 80048 ×2; 36415; 83735; 85610; 80061; 80076; 80307 ×8; 84443; 84484 ×2; 84439; 83880; 71045; 76705; 96375; 96372; 96374; 99291; U0002; J1940; J3010; J3475; J7030 ×2; J2405; G0378 ×2

== ENCOUNTER 2020-09-09 05:05 | Inpatient (IN) | payer OTHER ==
[2020-09-09 05:30] LABS: Absolute Lymphocytes (CBC) 1.5 K/uL (0.7-4.9); Basophils % 1.3 % (0-1.3); Hematocrit 45.2 % (36.0-45.0); Lymphocytes % 20.9 % (15.3-44.8); MPV 8.6 fL (7.6-11.3); RBC Red Blood Cell Count 4.89 M/uL (3.86-4.86)
[2020-09-09] MEDS ORDERED: NA CHLORIDE 0.9% 1,000 ML ONE (05:30)
[2020-09-09] MEDS ORDERED: METOPROLOL TARTRATE 5 MG/5 ML INJ IV ONE (05:30)
[2020-09-09 05:42] LABS: Protime INR 1.4
[2020-09-09 05:54] LABS: ALT/SGPT 27 U/L (12-78); AST/SGOT 37 U/L (15-37); Albumin 3.1 g/dL (3.4-5.0); Alkaline Phosphatase 135 U/L (45-117); BUN Blood Urea Nitrogen 16 mg/dL (7-18); Bicarbonate 26 mmol/L (21-32); Bilirubin Direct 0.6 mg/dL (0-0.2); Bilirubin Total 1.4 mg/dL (0.2-1.0); Glucose Level 106 mg/dL (74-106); NT PRO-BNP 3029 pg/mL (<125); Protein, Total 7.7 g/dL (6.4-8.2); Sodium Level 141 mmol/L (136-145); Troponin (Emerg Dept Use Only) < 0.02 ng/mL (0.0-0.045)
--- NOTE | 2020-09-09 05:56 | RAD REPORT ---
EXAM DESCRIPTION: Parag Single View09/09/2020 5:42 am CLINICAL HISTORY: Chest pain COMPARISON: February 2020 FINDINGS: Small to moderate bilateral pleural effusions with bibasilar atelectasis There may be mild interstitial pulmonary edema. The heart remains enlarged
[2020-09-09] MEDS ORDERED: ALBUTEROL 2.5 MG/3 ML NEB SOL ONE (06:28)
[2020-09-09] MEDS ORDERED: IPRATROPIUM BROM 0.5MG/2.5ML ONE (06:28)
[2020-09-09] MEDS ORDERED: LEVALBUTEROL 1.25 MG/3 ML NEB ONE (06:29)
[2020-09-09] MEDS ORDERED: FUROSEMIDE 40 MG/4 ML VIAL ONE (07:39)
--- NOTE | 2020-09-09 08:09 | EDPHYS ---
Physician Documentation [facility] Name: Aimee Flaherty Age: 70 yrs Sex: Female : 1950 Arrival Date: 09/09/2020 Time: 05:16 Bed 5 Private MD: ED Physician Donta Woody HPI: 09/09 07:29 This 70 yrs old Female presents to ER via EMS with complaints of sob. rn 07:29 The patient has shortness of breath at rest, with light activity. Onset: The rn symptoms/episode began/occurred 2 day(s) ago. Duration: The symptoms are continuous. The patient's shortness of breath is aggravated by light activity, supine position, talking, walking, is alleviated by nothing. Severity of symptoms: At their worst the symptoms were moderate in the emergency department the symptoms are unchanged. The patient has experienced similar episodes in the past. The patient has been recently seen by a physician:. Reports dyspnea increased for 2 days, no fever, can't lay flat, can't walk without sob. + pain left chest with deep inspiration. Reports seen by physician recently, told to increase metoprolol, but feels like making her sick and nauseous. . Historical: - Allergies: 05:44 No Known Allergies; mg2 - Home Meds: 05:24 carvedilol Oral [Active]; Lovastatin Oral [Active]; mg2 - PMHx: 05:24 Cirrhosis; Hypertension; mg2 - Immunization history:: Flu vaccine status is unknown. - Social history:: Smoking status: unknown. - Family history:: not pertinent. - Hospitalizations: : No recent hospitalization is reported. ROS: 07:31 Constitutional: Negative for fever, chills, and weight loss, Eyes: Negative for injury, rn pain, redness, and discharge, Neck: Negative for injury, pain, and swelling, Cardiovascular: + left sided chest pain Respiratory: + sob and pleuritic chest pain Abdomen/GI: Negative for abdominal pain, nausea, vomiting, diarrhea, and constipation, Back: Negative for injury and pain, : Negative for injury, bleeding, discharge, and swelling, MS/Extremity: Negative for injury and deformity, Skin: Negative for injury, rash, and discoloration, Neuro: Negative for headache, weakness, numbness, tingling, and seizure. Exam: 07:31 Constitutional: This is a well developed, well nourished patient who is awake, alert, rn sitting upright, + moderate tachypnea Head/Face: Normocephalic, atraumatic. Eyes: Periorbital areas with no swelling, redness, or edema. Cardiovascular: Tachycardic, irregular Respiratory: + moderate tachypnea, no retractions, diminished at bases Abdomen/GI: soft, non-tender Skin: Warm, dry MS/ Extremity: Pulses equal, no cyanosis. Neurovascular intact. Full, normal range of motion. Equal circumference. Neuro: Awake and alert, GCS 15 Vital Signs: 05:10 BP 157 / 100; Pulse 149; Resp 35; Pulse Ox 96% on 3 lpm NC; mg2 05:10 BP 147 / 88; Pulse 103; Resp 30; Pulse Ox 97% on 3 lpm NC; mg2 05:10 Temp 97.8(O); jb4 05:18 BP 105 / 85; Pulse 123; Resp 30; Pulse Ox 98% on 3 lpm NC; mg2 05:44 BP 110 / 80; Pulse 116; Resp 27; Pulse Ox 97% on 3 lpm NC; mg2 05:58 BP 118 / 92; Pulse 111; Resp 28; Pulse Ox 98% on 3 lpm NC; mg2 06:30 BP 115 / 98; Pulse 121; Resp 32; Pulse Ox 99% on 4 lpm NC; jb4 08:16 BP 126 / 74; Pulse 129; Resp 26 S; Pulse Ox 98% on 4 lpm NC; iw 09:43 BP 114 / 72; Pulse 100; Resp 24 S; Pulse Ox 99% on 4 lpm NC; iw 10:30 BP 102 / 71; Pulse 93; Resp 20 S; Pulse Ox 99% on 2 lpm NC; iw MDM: 07:01 Patient medically screened. rn 08:06 Differential diagnosis: Anemia CHF exacerbation, Myocardial Infarction pneumonia, rn Pneumothorax pulmonary edema. Data reviewed: vital signs, nurses notes, lab test result(s), EKG, radiologic studies, plain films, and as a result, I will discharge patient. 08:07 Counseling: I had a detailed discussion with the patient and/or guardian regarding: the rn historical points, exam findings, and any diagnostic results supporting the discharge/admit diagnosis, lab results, radiology results, the need for further work-up and treatment in the hospital. Response to treatment: the patient's symptoms have mildly improved after treatment, and as a result, I will admit patient. Admission orders: after a detailed discussion of the patient's condition and case, the admit orders are written by me. ED course: + afib with RVR, + CHF exacerbation with bilateral pleural effusions, will admit to Dr. Poole for further care. HR in 110s, increases when urinating, feels a little better. Needs more diuresis. . 04 05:17 Order name: Basic Metabolic Panel jb4 09/09 05:17 Order name: CBC with Diff; Complete Time: 07:03 jb4 09/09 05:17 Order name: LFT's; Complete Time: 07:03 jb4 09/09 05:17 Order name: Magnesium; Complete Time: 07:03 jb4 09/09 05:17 Order name: NT PRO-BNP; Complete Time: 07:03 jb4 09/09 05:17 Order name: PT-INR; Complete Time: 07:03 jb4 09/09 05:17 Order name: Troponin (emerg Dept Use Only); Complete Time: 07:03 jb4 09/09 05:17 Order name: XRAY Chest (1 view); Complete Time: 07:03 jb4 09/09 05:17 Order name: Basic Metabolic Panel; Complete Time: 07:03 EDMS 09/09 06:41 Order name: COVID-19 : Document "Date of Symptom Onset" if Symptomatic. mg2 09/09 07:40 Order name: SARS-COV-2 RT PCR; Complete Time: 08:09 EDMS 09/09 05:17 Order name: EKG; Complete Time: 05:17 jb4 09/09 05:17 Order name: Cardiac monitoring; Complete Time: 05:17 jb4 09/09 05:17 Order name: EKG - Nurse/Tech; Complete Time: 05:17 jb4 09/09 05:17 Order name: IV Saline Lock; Complete Time: 05:17 jb4 09/09 05:17 Order name: Labs collected and sent; Complete Time: 05:17 jb4 09/09 05:17 Order name: O2 Per Protocol; Complete Time: 05:17 jb4 09/09 05:17 Order name: O2 Sat Monitoring; Complete Time: 05:17 jb4 Administered Medications: 05:15 Drug: Metoprolol 5 mg Route: IVP; Site: right antecubital; jb4 05:17 Drug: NS 0.9% 1000 ml Route: IV; Rate: 1000 ml; Site: right antecubital; jb4 06:42 Follow up: Response: No adverse reaction; IV Status: Completed infusion; IV Intake: mg2 1000ml 05:20 Drug: Metoprolol 5 mg Route: IVP; Site: right antecubital; mg2 05:35 Drug: Metoprolol 5 mg Route: IVP; Site: right antecubital; mg2 06:41 Follow up: Response: No adverse reaction mg2 06:15 Not Given (Other Intervention Used): Albuterol - atroVENT (ipratropium) (3:1) (2.5 mg - jb4 0.5 mg) 3 ml Nebulizer once 06:16 Drug: Xopenex 1.25 mg Route: Inhalation; jb4 07:33 Drug: Lasix (furosemide) 40 mg Route: IVP; Site: right antecubital; iw 08:00 Follow up: Response: No adverse reaction iw 08:56 Drug: Magnesium Sulfate 1 grams Route: IVPB; Infused Over: 1 hrs; Site: right iw antecubital; 10:00 Follow up: IV Status: Completed infusion iw 08:56 Drug: Metoprolol 25 mg Route: PO; iw 09:30 Follow up: Response: No adverse reaction iw Disposition: 08:07 Critical Care:. rn Disposition: 09/09/20 08:09 Hospitalization ordered by Ezra Poole for Inpatient Admission. Preliminary diagnosis are Unspecified combined systolic (congestive) and diastolic (congestive) heart failure, Pleural effusion, not elsewhere classified, Atrial fibrillation and flutter. - Bed requested for Telemetry/MedSurg (Inpatient). - Status is Inpatient Admission. iw - Condition is Stable. - Problem is an acute exacerbation. - Symptoms have improved. Critical care time excluding procedures: 08:07 Critical care time: Bedside Care: 25 minutes, Consultation: 5 minutes. Total time: 30 rn minutes Signatures: Dispatcher [employer] EDMS Serenity Aggarwal Irene, RN RN iw Donta Woody MD MD rn Bryson, James, RN RN jb4 Campos Camarillo RN RN mg2 Corrections: (The following items were deleted from the chart) 06:56 06:42 CORONAVIRUS ordered. EDRI EDMS 11:08 08:09 Hospitalization Ordered by Ezra Poole for Inpatient Admission. Preliminary bd diagnosis is Unspecified combined systolic (congestive) and diastolic (congestive) heart failure; Pleural effusion, not elsewhere classified; Atrial fibrillation and flutter. Bed requested for Telemetry/MedSurg (Inpatient). Status is Inpatient Admission. Condition is Stable. Problem is an acute exacerbation. Symptoms have improved. rn 12:08 11:08 09/09/2020 08:09 Hospitalization Ordered by Ezra Poole for Inpatient iw Admission. Preliminary diagnosis is Unspecified combined systolic (congestive) and diastolic (congestive) heart failure; Pleural effusion, not elsewhere classified; Atrial fibrillation and flutter. Bed requested for Telemetry/MedSurg (Inpatient). Status is Inpatient Admission. Condition is Stable. Problem is an acute exacerbation. Symptoms have improved. bd
--- NOTE | 2020-09-09 08:09 | ER ---
Nurse's Notes [facility] Name: Aimee Flaherty Age: 70 yrs Sex: Female : 1950 Arrival Date: 09/09/2020 Time: 05:16 Bed 5 Private MD: Diagnosis: Unspecified combined systolic (congestive) and diastolic (congestive) heart failure;Pleural effusion, not elsewhere classified;Atrial fibrillation and flutter Presentation: 09/09 05:10 Chief complaint: EMS states: patient is having chest pain and shortness of breath mg2 today. Coronavirus screen: Client denies travel out of the [place] in the last 14 days. Ebola Screen: No symptoms or risks identified at this time. Initial Sepsis Screen: Does the patient meet any 2 criteria? RR > 20 per min. HR > 90 bpm. Does the patient have a suspected source of infection? No. Patient's initial sepsis screen is negative. Risk Assessment: Do you want to hurt yourself or someone else? Patient reports no desire to harm self or others. Onset of symptoms was September 09, 2020. 05:10 Method Of Arrival: EMS: [facility] 05:10 Acuity: TISH 2 mg2 Triage Assessment: 05:25 General: Appears distressed, Behavior is calm, cooperative. Pain: Complains of pain in mg2 chest. EENT: No signs and/or symptoms were reported regarding the EENT system. Neuro: Level of Consciousness is awake, alert, obeys commands, Oriented to person, place, time, situation. Cardiovascular: Capillary refill < 3 seconds Rhythm is atrial fibrillation with rapid ventricular response. Respiratory: Airway is patent Respiratory effort is even, labored, Respiratory pattern is regular, tachypnea. GI: No signs and/or symptoms were reported involving the gastrointestinal system. : No signs and/or symptoms were reported regarding the genitourinary system. Derm: Skin is intact, is healthy with good turgor, Skin is pink, warm \\T\\ dry. normal. Musculoskeletal: Circulation, motion, and sensation intact. Capillary refill < 3 seconds. Historical: - Allergies: 05:44 No Known Allergies; mg2 - Home Meds: 05:24 carvedilol Oral [Active]; Lovastatin Oral [Active]; mg2 - PMHx: 05:24 Cirrhosis; Hypertension; mg2 - Immunization history:: Flu vaccine status is unknown. - Social history:: Smoking status: unknown. - Family history:: not pertinent. - Hospitalizations: : No recent hospitalization is reported. Screenin:25 Abuse screen: Denies threats or abuse. Denies injuries from another. Nutritional mg2 screening: No deficits noted. Tuberculosis screening: No symptoms or risk factors identified. Fall Risk IV access (20 points). Assessment: 05:25 General: see triage note. mg2 06:00 Reassessment: Pt remains Alert and Oriented x4, continues to report feeling short of jb4 breath. Oxygen remains at 100% on 4L NC. Respirations are even, labored, and tachypneic. Provider notified, see MAR for orders. 06:39 Reassessment: Provider notified that pt's heart rate is peaking at 144. instructed to jb4 continue monitoring for now. Okayed to give pt ice chips. 07:44 Reassessment: pt medicated with 40 Lasix IVP, pt remains SOB, worse when lies back, pt iw sitting up in bed, 98% on 4 L NC, HR at 120-130, Afib RVR, bedside commode placed at bedside, call light within reach , instructed to call when ready to get up to toilet. 08:15 Reassessment: pt with 350 mL urine output, placed in recliner chair for comfort, pt iw still SOB and tachypneic on exertion. 09:43 Reassessment: 200 mL urine output. iw 11:33 Reassessment: Patient appears in no apparent distress at this time. Patient and/or iw family updated on plan of care and expected duration. Pain level reassessed. Patient is alert, oriented x 3, equal unlabored respirations, skin warm/dry/pink. Patient states feeling better. Patient states symptoms have improved. Vital Signs: 05:10 BP 157 / 100; Pulse 149; Resp 35; Pulse Ox 96% on 3 lpm NC; mg2 05:10 BP 147 / 88; Pulse 103; Resp 30; Pulse Ox 97% on 3 lpm NC; mg2 05:10 Temp 97.8(O); jb4 05:18 BP 105 / 85; Pulse 123; Resp 30; Pulse Ox 98% on 3 lpm NC; mg2 05:44 BP 110 / 80; Pulse 116; Resp 27; Pulse Ox 97% on 3 lpm NC; mg2 05:58 BP 118 / 92; Pulse 111; Resp 28; Pulse Ox 98% on 3 lpm NC; mg2 06:30 BP 115 / 98; Pulse 121; Resp 32; Pulse Ox 99% on 4 lpm NC; jb4 08:16 BP 126 / 74; Pulse 129; Resp 26 S; Pulse Ox 98% on 4 lpm NC; iw 09:43 BP 114 / 72; Pulse 100; Resp 24 S; Pulse Ox 99% on 4 lpm NC; iw 10:30 BP 102 / 71; Pulse 93; Resp 20 S; Pulse Ox 99% on 2 lpm NC; iw ED Course: 05:10 Inserted saline lock: 18 gauge in right antecubital area, using aseptic technique. jb4 Blood collected. by TAMMI Saleh. 05:16 Patient arrived in ED. jb4 05:19 Christian Man, RN is Primary Nurse. jb4 05:24 Triage completed. mg2 05:26 No provider procedures requiring assistance completed. mg2 05:26 Patient has correct armband on for positive identification. case monitor on. Pulse mg2 ox on. NIBP on. Door closed. Warm blanket given. 05:26 Arm band placed on. mg2 05:42 XRAY Chest (1 view) In Process Unspecified. EDMS 07:01 Donta Woody MD is Attending Physician. rn 07:06 Primary Nurse role handed off by Christian Man, TAMMI bd 07:19 Glenda Platt, TAMMI is Primary Nurse. iw 07:44 COVID-19 : Document "Date of Symptom Onset" if Symptomatic. Sent. sv 07:44 Basic Metabolic Panel Sent. sv 08:08 Ezra Poole is Hospitalizing Provider. rn Administered Medications: 05:15 Drug: Metoprolol 5 mg Route: IVP; Site: right antecubital; jb4 05:17 Drug: NS 0.9% 1000 ml Route: IV; Rate: 1000 ml; Site: right antecubital; jb4 06:42 Follow up: Response: No adverse reaction; IV Status: Completed infusion; IV Intake: mg2 1000ml 05:20 Drug: Metoprolol 5 mg Route: IVP; Site: right antecubital; mg2 05:35 Drug: Metoprolol 5 mg Route: IVP; Site: right antecubital; mg2 06:41 Follow up: Response: No adverse reaction mg2 06:15 Not Given (Other Intervention Used): Albuterol - atroVENT (ipratropium) (3:1) (2.5 mg - jb4 0.5 mg) 3 ml Nebulizer once 06:16 Drug: Xopenex 1.25 mg Route: Inhalation; jb4 07:33 Drug: Lasix (furosemide) 40 mg Route: IVP; Site: right antecubital; iw 08:00 Follow up: Response: No adverse reaction iw 08:56 Drug: Magnesium Sulfate 1 grams Route: IVPB; Infused Over: 1 hrs; Site: right iw antecubital; 10:00 Follow up: IV Status: Completed infusion iw 08:56 Drug: Metoprolol 25 mg Route: PO; iw 09:30 Follow up: Response: No adverse reaction iw Intake: 06:42 IV: 1000ml; Total: 1000ml. mg2 Outcome: 08:09 Decision to Hospitalize by Provider. rn 12:08 Patient left the ED. iw Signatures: Dispatcher [employer] EDMS Serenity Aggarwal Stephanie, RN RN Glenda Platt RN RN Donta Woody MD MD rn Bryson, James, RN RN jbCampos Deluna RN RN mg2 Corrections: (The following items were deleted from the chart) 05:44 05:10 Inserted saline lock: 20 gauge in right antecubital area, using aseptic jb4 technique. Blood collected. by TAMMI Saleh mg2 06:27 05:58 Reassessment: Patient appears in no apparent distress at this time. Patient jb4 and/or family updated on plan of care and expected duration. Pain level reassessed. Patient is alert, oriented x 3, equal unlabored respirations, skin warm/dry/pink. mg2
[2020-09-09] MEDS ORDERED: METOPROLOL TAR 25 MG TAB ONE (08:39)
[2020-09-09] MEDS ORDERED: MAGNESIUM SULFATE 1 gm IVPB 1 GM/100 ML BAG IV ONE (08:40)
[2020-09-09] MEDS ORDERED: ONDANSETRON 4 MG/2 ML VIAL IV PRN (11:08)
[2020-09-09] MEDS: APIXABAN 5 MG TABLET PO SCH ×2 (11:08→21:26)
[2020-09-09] MEDS: PANTOPRAZOLE 40MG TABLET PO SCH (11:08)
[2020-09-09] MEDS ORDERED: ENOXAPARIN 40 MG/0.4 ML SQ SCH (11:08)
[2020-09-09] MEDS: DILTIAZEM HCL 60 MG TAB PO SCH ×2 (12:00→16:54)
[2020-09-09] MEDS ORDERED: PANTOPRAZOLE 40MG TABLET PO ONE (12:01)
[2020-09-09] MEDS ORDERED: APIXABAN 5 MG TABLET ONE (12:02)
[2020-09-09 13:40] VITALS: BMI 31.4
[2020-09-09] MEDS: SPIRONOLACTONE 25 MG TABLET PO SCH (14:53)
[2020-09-09] MEDS ORDERED: DIGOXIN 0.25 MG/ML AMP IV ONE (16:24)
[2020-09-09] MEDS ORDERED: SOTALOL HCL 80 MG TAB PO ONE (16:25)
--- NOTE | 2020-09-09 16:51 | P.HP ---
Certification for Inpatient Patient admitted to: Inpatient With expected LOS: >2 Midnights Practitioner: I am a practitioner with admitting privileges, knowledge of patient current condition, hospital course, and medical plan of care. Services: Services provided to patient in accordance with Admission requirements found in Title 42 Section 412.3 of the Code of Federal Regulations Patient History Date of Service: 09/09/20 Reason for admission: Shortness of breath History of Present Illness: 70-year-old woman with a history of chronic diastolic heart failure, alcoholic liver cirrhosis presented to the emergency department with a complaint of progressive shortness of breath. Patient was found to be in atrial fibrillation with RVR. Chest x-ray showed mild to moderate bilateral pleural effusion and mild interstitial pulmonary edema. Patient was given multiple doses of IV metoprolol to control her heart rate. Her heart rate was 110 during my examination in the ED. She was also complaining of pleuritic chest pain. Initial troponin is negative. No significant electrolyte abnormality. Elevated bilirubin and elevated BNP. Patient also given a dose of Lasix. She is admitted for further management. Allergies No Known Allergies Allergy (Unverified 06/30/17 11:42) Home Medications: Furosemide [Lasix] 40 mg PO DAILY #30 tablet 02/08/20 Metoprolol Tartrate [Lopressor*] 25 mg PO BID 6AM 6PM #60 tab 02/08/20 Spironolactone [Aldactone*] 25 mg PO DAILY #30 tab 02/08/20 Omeprazole [Prilosec] 40 mg PO DAILY 09/09/20 - Past Medical/Surgical History Has patient received pneumonia vaccine in the past: Yes Diabetic: No -: Alcoholic cirrhosis -: Hypertension -: Hyperlipidemia -: Iron def. Anemia -: Esophageal varices -: GERD -: Murmur -: Chronic diastolic congestive heart failure -: Cataract -: Colonoscopy -: EGD -: Andrey Carpal Tunnel Psychosocial/ Personal History: Patient currently lives at home - Family History Father -: Heart disease, Other (see notes) Notes: heart attack, problem with his eyes Brother -: Heart disease Notes: CAD Mother -: Hypertension - Social History Smoking Status: Former smoker Alcohol use: Yes CD- Drugs: No Caffeine use: No Place of Residence: Home Review of Systems Other: Patient denied any abdominal pain or nausea or vomiting or diarrhea or urinary frequency or dysuria. Except as documented, all other systems reviewed and negative. Physical Examination - Vital Signs Temperature: 97.4 F Blood Pressure: 115/74 Pulse: 79 Respirations: 26 - Physical Exam General: Alert, In no apparent distress, Oriented x3 HEENT: Mucous membr. moist/pink Neck: Supple, JVD not distended Respiratory: Normal air movement, Crackles/rales (Mild bibasilar crackles), Other Cardiovascular: No edema, Normal S1 S2, Irregular heart rate/rhythm Capillary refill: <2 Seconds Gastrointestinal: Normal bowel sounds, Soft and benign, Non-distended, No tenderness Musculoskeletal: No swelling, No tenderness Integumentary: No rashes, No erythema Neurological: Normal speech, Normal strength at 5/5 x4 extr, Cranial nerves 3-12 intact - Studies Laboratory Data (last 24 hrs) 09/09/20 05:15: PT 16.1 H, INR 1.40 09/09/20 05:15: WBC 7.00, Hgb 15.0, Hct 45.2 H, Plt Count 184 09/09/20 05:15: Sodium 141, Potassium 4.0, BUN 16, Creatinine 1.08, Glucose 106, Magnesium 2.0, Total Bilirubin 1.4 H, AST 37, ALT 27, Alkaline Phosphatase 135 H Assessment and Plan - Problems (Diagnosis) (1) Acute on chronic diastolic heart failure Current Visit: Yes Status: Acute (2) Atrial fibrillation with RVR Current Visit: Yes Status: Acute (3) Bilateral pleural effusion Current Visit: Yes Status: Acute (4) Hypertension Onset Date: 06/19/15 Current Visit: No Status: Chronic Qualifiers: Hypertension type: essential hypertension Qualified Code(s): I10 - Essential (primary) hypertension - Plan Admit patient to the medical floor. Telemetry Start IV Lasix b.i.d.. Continue home dose metoprolol. I added short-acting oral Cardizem 30 mg q.6 hrs. Monitor intake and output. Cardiology consult. Monitor renal function on IV Lasix. Weaned off oxygen. - Advance Directives Does patient have a Living Will: No Does patient have a Durable POA for Healthcare: No
[2020-09-09] MEDS: FUROSEMIDE 40 MG/4 ML VIAL IV SCH (16:58)
[2020-09-09] MEDS ORDERED: METOPROLOL TAR 25 MG TAB PO SCH (18:00)
[2020-09-09 20:25] LABS: Urine Appearance CLEAR (Clear); Urine Bilirubin NEGATIVE (Negataive); Urine Blood NEGATIVE (Negative); Urine Color YELLOW (Yellow); Urine Glucose NEGATIVE (Negative); Urine Protein NEGATIVE (Negative); Urine Specific Gravity <=1.005 (1.005-1.030); Urine pH 6.5 (5.0-7.0)
[2020-09-09 20:36] LABS: Urine Microscopic Reflex ORDER UMIC
[2020-09-09] MEDS: MELATONIN 5 MG TABLET PO SCH (21:26)
[2020-09-09 21:54] LABS: Urine Bacteria >50 /HPF (<20); Urine RBC <5 /HPF (NONE SEEN)
[2020-09-10 04:22] LABS: Basophils % 1.1 % (0-1.3); Hematocrit 41.6 % (36.0-45.0); Lymphocytes % 14.6 % (15.3-44.8)
[2020-09-10 04:43] LABS: Magnesium 1.9 mg/dL (1.8-2.4); Phosphorus 2.6 mg/dL (2.5-4.9); Potassium 3.8 mmol/L (3.5-5.1); Thyroid Stimulating Hormone 1.56 uIU/mL (0.360-3.740)
[2020-09-10] MEDS: SOTALOL HCL 80 MG TAB PO SCH ×2 (05:22→17:17)
[2020-09-10] MEDS: DILTIAZEM HCL 60 MG TAB PO SCH ×4 (05:22→17:17)
[2020-09-10] MEDS: APIXABAN 5 MG TABLET PO SCH ×2 (07:48→21:17)
[2020-09-10] MEDS: PANTOPRAZOLE 40MG TABLET PO SCH (07:49)
[2020-09-10] MEDS: SPIRONOLACTONE 25 MG TABLET PO SCH (07:49)
[2020-09-10] MEDS: FUROSEMIDE 40 MG/4 ML VIAL IV SCH ×2 (07:50→16:23)
[2020-09-10] MEDS ORDERED: POTASSIUM CL SA 10 MEQ TAB PO ONE (09:00)
--- NOTE | 2020-09-10 12:51 | EKG ---
Test Date: 2020-09-09 Test Time: 05:08:14 Contracts Administrator: MEASUREMENT RESULTS: Intervals: Rate: 141 [place]: QRSD: 126 QT: 344 QTc: 526 [place]: P: OK: QRS: 15 T: 171 INTERPRETIVE STATEMENTS: Atrial fibrillation with rapid ventricular response Nonspecific intraventricular block Cannot rule out Anterior infarct, age undetermined T wave abnormality, consider lateral ischemia Abnormal ECG Compared to ECG 02/07/2020 17:11:03 Myocardial infarct finding now present T-wave abnormality now present Possible ischemia now present Sinus rhythm no longer present Left bundle-branch block no longer present Electronically Signed On 09-10-20 12:46:58 CDT by Prakash Reynolds
[2020-09-10] MEDS: ACETAMINOPHEN 500 MG TAB PO PRN (16:27)
--- NOTE | 2020-09-10 18:31 | P.DS ---
Admission Date: 09/09/20 Discharge Date: 09/10/20 Disposition: ROUTINE DISCHARGE Discharge Condition: FAIR Reason for Admission: Shortness of breath - Problems (1) Acute on chronic diastolic heart failure Current Visit: Yes Status: Acute (2) Atrial fibrillation with RVR Current Visit: Yes Status: Acute (3) Bilateral pleural effusion Current Visit: Yes Status: Acute (4) Hypertension Onset Date: 06/19/15 Current Visit: No Status: Chronic Qualifiers: Hypertension type: essential hypertension Qualified Code(s): I10 - Essential (primary) hypertension Brief History of Present Illness: 70-year-old woman with a history of chronic diastolic heart failure, alcoholic liver cirrhosis presented to the emergency department with a complaint of progressive shortness of breath. Patient was found to be in atrial fibrillation with RVR. Chest x-ray showed mild to moderate bilateral pleural effusion and mild interstitial pulmonary edema. Patient was given multiple doses of IV metoprolol to control her heart rate. Her heart rate was 110 during my examination in the ED. She was also complaining of pleuritic chest pain. Initial troponin is negative. No significant electrolyte abnormality. Elevated bilirubin and elevated BNP. Patient also given a dose of Lasix. She is admitted for further management. Hospital Course: Patient admitted to the medical and treated for acute diastolic heart failure with IV Lasix. And evaluated by cardiology-Dr. Reynolds for the atrial fibrillation. Her rate control medications were changed to sotalol and patient placed on Eliquis. She was initially requiring oxygen but she was eventually weaned off oxygen to room air. Her heart rate was controlled on the Sotalol but she is still remain in atrial fibrillation. Patient under condition improved rapidly with treatment, more quickly than I anticipated. She is considered clinically stable for discharge per cardiology. She will follow with Dr. Reynolds in the office next week. Vital Signs/Physical Exam: Temp Pulse Resp BP Pulse Ox 97.5 F 70 16 117/55 L 94 09/10/20 16:00 09/10/20 17:17 09/10/20 16:00 09/10/20 17:17 09/10/20 16:00 General: Alert, In no apparent distress, Oriented x3 HEENT: Mucous membr. moist/pink Neck: Supple, JVD not distended Respiratory: Clear to auscultation bilaterally, Normal air movement Cardiovascular: No edema, Normal S1 S2, Irregular heart rate/rhythm Gastrointestinal: Normal bowel sounds, Soft and benign, Non-distended, No tenderness Musculoskeletal: No swelling, No tenderness Integumentary: No rashes Neurological: Normal speech, Normal strength at 5/5 x4 extr, Cranial nerves 3-12 intact Laboratory Data at Discharge: WBC 7.10 K/uL (4.3-10.9) 09/10/20 03:27 Hgb 13.8 g/dL (12.0-15.0) 09/10/20 03:27 Hct 41.6 % (36.0-45.0) 09/10/20 03:27 Plt Count 170 K/uL (152-406) 09/10/20 03:27 PT 16.1 SECONDS (9.5-12.5) H 09/09/20 05:15 INR 1.40 09/09/20 05:15 Sodium 140 mmol/L (136-145) 09/10/20 03:27 Potassium 3.8 mmol/L (3.5-5.1) 09/10/20 03:27 BUN 18 mg/dL (7-18) 09/10/20 03:27 Creatinine 0.91 mg/dL (0.55-1.3) 09/10/20 03:27 Glucose 96 mg/dL (74-106) 09/10/20 03:27 Phosphorus 2.6 mg/dL (2.5-4.9) 09/10/20 03:27 Magnesium 1.9 mg/dL (1.8-2.4) 09/10/20 03:27 Total Bilirubin 1.4 mg/dL (0.2-1.0) H 09/09/20 05:15 AST 37 U/L (15-37) 09/09/20 05:15 ALT 27 U/L (12-78) 09/09/20 05:15 Alkaline Phosphatase 135 U/L (45-117) H 09/09/20 05:15 Troponin I 0.02 ng/mL (0.0-0.045) 09/10/20 03:27 Triglycerides 101 mg/dL (<150) 09/10/20 03:27 Cholesterol 209 mg/dL (<200) H 09/10/20 03:27 HDL Cholesterol 52 mg/dL (40-60) 09/10/20 03:27 Cholesterol/HDL Ratio 4.02 09/10/20 03:27 Home Medications: Furosemide [Lasix] 40 mg PO DAILY #30 tablet 02/08/20 Spironolactone [Aldactone*] 25 mg PO DAILY #30 tab 02/08/20 Omeprazole [Prilosec] 40 mg PO DAILY 09/09/20 Apixaban [Eliquis] 5 mg PO BID #60 tablet 09/10/20 Melatonin 10 mg PO BEDTIME #30 tablet 09/10/20 Sotalol HCl [Betapace*] 80 mg PO BID 6AM 6PM #60 tab 09/10/20 New Medications: Sotalol HCl [Betapace*] 80 mg PO BID 6AM 6PM #60 tab Apixaban [Eliquis] 5 mg PO BID #60 tablet Melatonin 10 mg PO BEDTIME #30 tablet Followup: Deanne Boyd DO [Primary Care Provider] - 1-2 Weeks Prakash Reynolds MD [ACTIVE - CAN ADMIT] - 1 Week (Follow up with Dr. Reynolds on 09/16/2020 at 1 pm.) Time spent managing pt's care (in minutes): 33
[2020-09-10] MEDS: MELATONIN 5 MG TABLET PO SCH (21:17)
--- NOTE | 2020-09-10 21:26 | CON ---
Date of Consultation: 09/09/2020 Reason For Consultation: Atrial fibrillation with rapid ventricular response. History Of Present Illness: Ms. Flaherty is a 70-year-old woman with history of cirrhosis and hypertens ion. She has been taking carvedilol and lovastatin for her hypertension and dyslipidemia, came in wi th shortness of breath, was found to be in atrial fibrillation with rapid ventricular response. By t he time I saw her, she has already received metoprolol p.o. She received IV metoprolol and continued to be in rapid atrial fibrillation with some shortness of breath. Denied any chest pain, nausea, vo miting, diaphoresis, PND, orthopnea, pedal edema, palpitations, or syncope. Past Medical History: As stated above. Allergies: NONE. Review of Systems: Negative. Social History: Negative. Family History: Noncontributory. Physical Examination: General: She was in mild respiratory distress. She was in atrial fibrillation with rapid ventricula r response. Vital Signs: She was afebrile. Blood pressure 115/74. O2 saturation was 95% on nasal cannula. Chest: Clear. Cardiac: Atrial fibrillation. Abdomen: Benign. Extremities: No clubbing, cyanosis, or edema. Diagnostic Data: All within normal limit except for her atrial fibrillation. She had a BNP of 3029. Her troponin was negative. Her cholesterol was 209, her LDL was 137, her HDL was 52 with a normal ratio. Chest x-ray was negative. Impression And Plan: New-onset atrial fibrillation, unresponsive to beta-carlos. She is on diltiaz em. I will give her 1 dose of digoxin. She needs to be on Eliquis. I will put her on sotalol 80 mg b.i.d. She is also on 25 mg daily. If she converts on the sotalol, that would be great. If not, neal johnston will send her home on sotalol and Eliquis and we will plan a cardioversion in the next 2 to 3 weeks . No need to repeat any cardiac workup at this point. She has had an ultrasound of her heart in Feb of 2019 showing ejection fraction 66% with aortic sclerosis, but no stenosis. Her blood press ure is controlled. Her dyslipidemia is fairly well controlled and her cirrhosis is stable. TOLU/KJ Voice ID: [id number] Report ID: [id number]
--- NOTE | 2020-09-10 22:02 | PN ---
Date of Progress Note: 09/10/2020 Ms. Flaherty had come in with new onset atrial fibrillation. She remains in atrial fibrillation but her rate is only 78. She is on diltiazem. She is on sotalol. She is on Eliquis. She is asymptomatic. I am comfortable with her going home today on her present regimen and should see me in the office n ext week. We will plan to do a cardioversion on her if she remains in atrial fibrillation. No need for any further cardiac workup at this point. I will consider to do a stress test as an outpatient. TOLU/KJ Voice ID: [id number] Report ID: [id number]
[2020-09-11] MEDS: DILTIAZEM HCL 60 MG TAB PO SCH ×2 (00:21→05:01)
[2020-09-11] MEDS: SOTALOL HCL 80 MG TAB PO SCH (05:01)
[2020-09-11 07:45] VITALS: BP 113/84; TEMP 97
[2020-09-11] MEDS: ACETAMINOPHEN 500 MG TAB PO PRN (08:02)
[2020-09-11] MEDS: SPIRONOLACTONE 25 MG TABLET PO SCH (08:03)
[2020-09-11] MEDS: APIXABAN 5 MG TABLET PO SCH (08:05)
[2020-09-11] MEDS: PANTOPRAZOLE 40MG TABLET PO SCH (08:05)
[2020-09-11] MEDS ORDERED: BUMETANIDE 1 MG/4 ML VIAL IV STA (09:09)
--- NOTE | 2020-09-11 09:18 | P.PN ---
Date of Service: 09/11/20 Patient seen today, complain of mild shortness of breath. O2 sat still ranging 89-91% on room air. She is awaiting discharge and availability of transport home. She will be given Bumex 1 mg today x1. Shortness of breath improved. Patient has been discharged on continuation of diuretics with Lasix and spironolactone. No new changes. Continue discharge summary as previously outlined.
[2020-09-11 10:46] VITALS: O2SAT 93
[2020-09-11] MEDS ORDERED: PANTOPRAZOLE 40MG TABLET PO SCH (21:00)
--- NOTE | 2020-09-12 12:50 | EKG ---
Test Date: 2020-09-11 Test Time: 08:10:18 Manager Club: LEO MEASUREMENT RESULTS: Intervals: Rate: 79 [place]: QRSD: 138 QT: 454 QTc: 520 [place]: P: GA: QRS: 38 T: 196 INTERPRETIVE STATEMENTS: Atrial fibrillation Left bundle branch block Abnormal ECG Compared to ECG 09/09/2020 05:08:14 Left bundle-branch block now present Myocardial infarct finding no longer present T-wave abnormality no longer present Possible ischemia no longer present Electronically Signed On 09-12-20 12:46:01 CDT by Prakash Reynolds
--- NOTE | 2020-09-12 19:14 | PN ---
Date of Progress Note: 09/11/2020 Subjective: Ms. Flaherty basically had come in with atrial fibrillation. She was placed on sotalol. S he was receiving the diltiazem, got 1 dose of digoxin. She is on Eliquis. I switched her to 80 mg b .i.d. of sotalol. She was also on metoprolol 25 mg daily. Ejection fraction at 66% with mild aortic sclerosis in February 2020. On 09/12/2019, she remained in atrial fibrillation. Her heart rate wa s 81. However, she was complaining of midepigastric pain and I believe she is overmedicated. Her bl ood pressure is 113/84. I took her off Aldactone. She does not need that. She does not have CHF. I took her off diltiazem. We will only keep her on sotalol and Eliquis and see how she does. Her la st saturation on nasal cannula 93%. I think Ms. Flaherty needs to follow up in the office with us in 2 weeks after discharge. We will consider cardioversion and maybe discuss ablation with her as well. TOLU/KJ Voice ID: [id number] Report ID: [id number]
== END 2020-09-11 11:35 | disposition home or self-care (01) | DRG 308 ==
LOC: ER 05:05 → ERHOLD 08:49 → 4TH 11:51
PROVIDERS: ADMIT Internal Medicine; ATTEND Internal Medicine
DX: I48.0 Paroxysmal atrial fibrillation (principal); I50.33 Acute on chronic diastolic (congestive) heart failure; I11.0 Hypertensive heart disease with heart failure; K21.9 Gastro-esophageal reflux disease without esophagitis; K74.60 Unspecified cirrhosis of liver; E78.5 Hyperlipidemia, unspecified; Z79.899 Other long term (current) drug therapy; Z79.01 Long term (current) use of anticoagulants; Z87.891 Personal history of nicotine dependence; Z20.822 Contact with and (suspected) exposure to COVID-19
CPT/HCPCS: 36415; 71045; 80048; 80061; 80076; 81003; 81015; 83735; 83880; 84100; 84443; 84484; 85025; 85610; 87077; 87086; 87088; 87186; 93005; 94760; 96361; 96365; 96375; 97116; 97161; 99285; J1160; J1940; J3475; J7030; U0003

== ENCOUNTER 2021-09-21 06:45 | Day surgery (SDC) | payer OTHER ==
[2021-09-17 13:55] LABS: Absolute Lymphocytes (CBC) 1.3 K/uL (0.7-4.9); Hematocrit 32.7 % (36.0-45.0); Lymphocytes % 25.3 % (15.3-44.8); MPV 8.5 fL (7.6-11.3); RBC Red Blood Cell Count 3.79 M/uL (3.86-4.86)
[2021-09-17 14:03] LABS: Protime INR 1.31
[2021-09-17 14:09] LABS: Potassium 4.3 mmol/L (3.5-5.1)
--- NOTE | 2021-09-17 15:18 | RAD REPORT ---
EXAM DESCRIPTION: Parag Pa And Lat (2 Views)09/17/2021 1:59 pm CLINICAL HISTORY: Preop for cardiac catheterization. Hypertension COMPARISON: 2020 FINDINGS: Small to moderate right small left pleural effusion with basilar atelectasis. Upper lobes appear clear. Heart is mildly enlarged
[2021-09-21] MEDS ORDERED: NA CHLORIDE 0.9% 500 ML ONE ×2 (06:51→06:59)
[2021-09-21] MEDS ORDERED: MIDAZOLAM HCL 2 MG/2 ML INJ ONE (06:52)
[2021-09-21] MEDS ORDERED: FENTANYL CITR 100 MCG/2 ML ONE (06:52)
[2021-09-21] MEDS ORDERED: NITROGLYCERIN 100 MCG/ML SYR (for cath lab use only) IV ONE (06:53)
[2021-09-21] MEDS ORDERED: NA CHLORIDE 0.9% 0 ML ONE (06:53)
[2021-09-21] MEDS ORDERED: ATROPINE SULF 1 MG/10 ML SYR IV ONE ×2 (06:53→06:54)
[2021-09-21] MEDS ORDERED: NITROGLYCERIN/D5W 25 MG/250 ML BTL IV ONE (06:53)
[2021-09-21] MEDS ORDERED: NA CHLORIDE 0.9% 50 ML ONE (06:53)
[2021-09-21] MEDS ORDERED: LIDOCAINE 1% 20 ML MDV ONE (06:58)
[2021-09-21] MEDS ORDERED: HEPA 1000U/500MLS 1,000 UNIT/500 ML BAG IV ONE (06:58)
[2021-09-21] MEDS ORDERED: NA CHLORIDE 0.9% 100 ML IV ONE (07:03)
[2021-09-21 09:37] VITALS: O2SAT 98
[2021-09-21 10:04] VITALS: BP 121/56
--- NOTE | 2021-09-21 21:29 | OP ---
Date of Procedure: 09/21/2021 Surgeon: Prakash Reynolds MD Sample Examiner: Ms. Emelia Reid The patient had an Angio-Seal done in the right groin. Angiography there was normal. She will go ho me after 2 hours of bedrest and I will make an arrangement for an outpatient TAVR by Dr. White. Luke e was discussed with Dr. White. Procedure: Left and right heart catheterization, selective coronary arteriogram, cardiac output josephine urement, and O2 saturation. Indication: Severe aortic stenosis. Procedure In Detail: Ms. Flaherty is 71, was brought to the cardiac cath rn today as an outpatient. She had h eld her Xarelto for 2 days. In the cardiac cath rn, she was prepped and draped in the routine sterile fashi on, given Versed for sedation. A 6-Russian sheath introduced in the right common femoral artery and a 7-Russian sheath introduced in the right common femoral vein using the Seldinger technique and 10 cc of Xylocaine. A Litch[place]-Carmen catheter was introduced through the common femoral vein into the right atr ium, right ventricle, pulmonary artery wedge pressure. Measurements showed a mean RA pressure of 10, right ventricular pressure was 72/6, PA pressure was 69/22, and wedge was 29, mean. Cardiac output was measured, average 4.8 L/minute. O2 saturation was drawn and wedge PA, RV, RA, IVC, these are pen ding. Following that, a Bryant catheter left and right were introduced in the femoral artery 6-Fren ch sheath. She had normal coronaries. There were no complications. Blood Loss: 5 cc. Postoperative Diagnoses: Severe aortic stenosis, severe pulmonary hypertension, normal coronaries. Plan is for TAVR. Anesthesia: Total conscious sedation was 60 minutes. NB/MODL Voice ID: [id number] Report ID: [id number]
== END 2021-09-21 09:50 | disposition home or self-care (01) ==
LOC: CCL 06:45
DX: I35.0 Nonrheumatic aortic (valve) stenosis (principal); I27.20 Pulmonary hypertension, unspecified; I34.2 Nonrheumatic mitral (valve) stenosis; I11.0 Hypertensive heart disease with heart failure; I50.32 Chronic diastolic (congestive) heart failure; I48.0 Paroxysmal atrial fibrillation; E78.2 Mixed hyperlipidemia; D64.9 Anemia, unspecified; K21.9 Gastro-esophageal reflux disease without esophagitis; Z79.01 Long term (current) use of anticoagulants; Z87.891 Personal history of nicotine dependence; Z20.822 Contact with and (suspected) exposure to COVID-19; Z82.49 Family history of ischemic heart disease and other diseases of the circulatory system
CPT/HCPCS: 93005; 85025; 80048; 36415; 85610; 85730; 71046; 93456; U0003; C1893; C1760; G0269; J2250; J3010; J7040 ×2; J1644; G0278; J0583

== ENCOUNTER 2022-04-25 16:15 | Emergency (ER) | payer OTHER ==
--- OUTSIDE RECORDS SUMMARY | 2022-04-25 16:19 | XMS REPORT | Continuity of Care Document ---
:1950 Author Organization [facility] t Address [address] [place] [address] Care Team Providers Name Role Phone YOHANNES CARRANZA Primary Care Physician Unavailable Yohannes Carranza Attending Clinician Unavailable Traci Gill MD Attending Clinician 1.5, [facility] Hilary Mr Attending Clinician Unavailable Meagan RN, Amrita Martin Attending Clinician Unavailable TRACI GILL Attending Clinician Unavailable Ana Prado EARTH SCIENCE TECHNICIAN Attending Clinician Unavailable Gwen-Mbayo_A_AH Attending Clinician Unavailable Physician, No Primary or Family Admitting Clinician UnavailFabien Washington Admitting Clinician Unavailable Gwen-Mbayo_A_AH Admitting Clinician Unavailable Payers Payer Name Policy Type Policy Number Effective Date Expiration Date Yelena BATRES [facility] 53 [id number] [facility] ADVANTAGE - [facility] [id number] 2019 - [employer] 00:00:00 (MEDICARE REPLACEMENT/ADV ANTAGE - HMO) Problems Condition Condition Condition Status Onset Resolution Last Treating Co mments Source Name Details Category Date Date Treatment Clinician Date Other Other Disease Active 2021-[address] [facility] [address] cirrhosis cirrhosis 06-07 Assessernst nuñez of liver of liver 00:00: t & Plan: Med ical 00 [facility] g of this note might be different from the original. 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 We will check labs to exclude other causes, check MELD score.We will check MRI liver protocol to rule out any liver lesion.Ad vised continued abstinenc e from alcohol. Avoid NSAIDs/ov er the counter medicatio ns. Portal Portal Disease Active 2021-06 [facility] hypertensi hypertensi 06-07 Assessernst Carrizales on on 00:00: t & Plan: Medical 00 [facility] g of this note might be different from the original. No ascites clinicall y. However she is on diuretics . Recommend EGD for variceal screening by Dr Mehta. Screening Screening Disease Active 2021-06 [facility] for cancer for cancer 06-07 [facility] 00:00: t & Plan: Medical [address] [place] [address] g of this note might be different from the original. Cirrhosis , regardles s of etiology, is a risk factor for developme nt of hepatocel lular carcinoma . The annual incidence of HCC varies from 1.5-7%. Thus, we recommend surveilla nce for HCC be performed using contrast MRI or CT imaging and alphafeto protein every 6 months. 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 She is being followed by nephrolog ist. Needs optimizat ion of diuretics with careful monitorin g. [id number] Esophageal Problem Com mon varices [facility] without - [facility] bleeding, St unspecifie [facility] esophageal Center varices type [id number] Alcoholic Problem Commo n [facility] - [facility] [id number] Alcoholic Problem Com mon cirrhosis Spirit of liver - [facility] without [facility] ascites [facility] Essential Essential Problem Com mon hypertensi hypertensi Sp radha on on - [facility] [id number] Congestive Problem Com mon heart Spirit failure, - [facility] unspecifie d [facility] chronicity Medica , [place] unspecifie d heart failure type [id number] Persistent Problem Co mmon atrial Spirit fibrillati - [facility] on [facility] [id number] Other Problem Common chronic Spirit pain - [facility] Mixed Mixed Problem Common hyperlipid hyperlipid Sp [facility] emia emia [facility] Vitamin D Vitamin D Problem Com mon deficiency deficiency Sp radha [facility] Gastroesop Gastroesop Problem C ommon hageal hageal Spirit reflux reflux - [facility] s present Aortic Severe Problem Common valve aortic Spirit disorder stenosis - [facility] Allergies, Adverse Reactions, Alerts Allergy Allergy Status Severity Reaction(s) Onset Inactive Treating Comm ents Source Name Type Date Date Clinician NO KNOWN Allergy Active [facility] Family History Family Member Diagnosis Comments Start Date Stop Date Source Natural father Hypertension [facility] Natural mother Hypertension [facility] Social History Social Habit Start Date Stop Date Quantity Comments Source History of [facility] - Tobacco Use [facility] Tobacco use and 2022-04-07 2022-04-07 Never used [facility] exposure 00:00:00 00:00:00 [facility] Alcohol intake 2022-04-07 2022-04-07 Ex-drinker [facility] es 00:00:00 00:00:00 (finding) [facility] Sex Ass[birth year] [facility] 00:00:00 00:00:00 [facility] Smoking Status Start Date Stop Date Source Former smoker 2022-04-07 00:00:00 2022-04-07 00:00:00 [facility] Never Smoker [facility] - [facility] Medications Ordered Filled Start Stop Current Ordering Indication Dosage Frequency Signature Comments Components Source Medication Medication Date Date Medication? Clinician (SIG) Name Name rivaroxaban 2021-06 Yes 15mg Take [address] (Xarelto) 1-02 by mouth. [facility] 15 mg 10:54: Medical tablet 25 [place] esomeprazol 2021-06 Yes 40mg QD Take [address] e (NexIUM) 0-19 by mouth [facility] 40 MG 00:00: daily. Medical capsule 00 [place] sotaloL 2021-[address] (BETAPACE) 0-10 Tablet(s) Luke s 80 MG 00:00: By Mouth Medical tablet 00 Morning-Ev [place] ening losartan Yes 50mg QD Take [address] (COZAAR) 50 9-29 by mouth Luke s MG tablet 00:00: daily. Medica 00 [place] spironolact Yes 25mg QD Take [address] one 9-16 by mouth [facility] (ALDACTONE) 00:00: daily. Medi mil 25 MG 00 Center tablet furosemide Yes 40mg QD Take [address] (LASIX) 40 9-16 by mouth [facility] MG tablet 00:00: daily. Medica [address] methylPREDN Yes TAKE [address] ISolone 8-24 TABLETS ON [facility] (MEDROL 00:00: DAY 1 Medica l DOSEPACK) 4 00 DIRECTED Cent er mg tablet ON PACKAGE AND DECREASE BY 1 TAB EACH DAY FOR A TOTAL OF 6 DAYS Sotalol HCl Sotalol HCl No 1{table BID Sotalol 80 MG 80 MG t} HCl 80 MG Esomeprazol Esomeprazol No 1{capsu QD Esomeprazo e Magnesium e Magnesium le} le 40 MG 40 MG Magnesium 40 MG Spironolact Spironolact No 1{table Spironolac one 25 MG one 25 MG t} tone 25 MG Eliquis 5 Eliquis 5 No Eliquis 5 mg 5 mg mg 5 mg mg 5 mg Furosemide Furosemide No 1{table QD Furosemide 40 MG 40 MG t} 40 MG Xarelto 15 Xarelto 15 No 1{table QD Xarelto 15 MG MG t_with_ MG food} Esomeprazol Esomeprazol No 1{capsu QD Esomeprazo e Magnesium e Magnesium le} le 40 MG 40 MG Magnesium 40 MG Xarelto 15 Xarelto 15 No 1{table QD Xarelto 15 MG MG t_with_ MG food} Losartan Losartan No Losartan Potassium Potassium Potassium 50 MG 50 MG 50 MG Furosemide Furosemide No 1{table QD Furosemide 40 MG 40 MG t} 40 MG Sotalol HCl Sotalol HCl No 1{table BID Sotalol 80 MG 80 MG t} HCl 80 MG Losartan Losartan No 1{table QD Losartan Potassium Potassium t} Potassium 50 MG 50 MG 50 MG Eliquis 5 Eliquis 5 No Eliquis 5 mg 5 mg mg 5 mg mg 5 mg Spironolact Spironolact No 1{table Spironolac one 25 MG one 25 MG t} tone 25 MG Esomeprazol Esomeprazol No 1{capsu QD Esomeprazo e Magnesium e Magnesium le} le 40 MG 40 MG Magnesium 40 MG Xarelto 15 Xarelto 15 No 1{table QD Xarelto 15 MG MG t_with_ MG food} Losartan Losartan No Losartan Potassium Potassium Potassium 50 MG 50 MG 50 MG Furosemide Furosemide No 1{table QD Furosemide 40 MG 40 MG t} 40 MG Sotalol HCl Sotalol HCl No 1{table BID Sotalol 80 MG 80 MG t} HCl 80 MG Losartan Losartan No 1{table QD Losartan Potassium Potassium t} Potassium 50 MG 50 MG 50 MG Eliquis 5 Eliquis 5 No Eliquis 5 mg 5 mg mg 5 mg mg 5 mg Spironolact Spironolact No 1{table Spironolac one 25 MG one 25 MG t} tone 25 MG Esomeprazol Esomeprazol No 1{capsu QD Esomeprazo e Magnesium e Magnesium le} le 40 MG 40 MG Magnesium 40 MG Xarelto 15 Xarelto 15 No 1{table QD Xarelto 15 MG MG t_with_ MG food} Losartan Losartan No Losartan Potassium Potassium Potassium 50 MG 50 MG 50 MG Furosemide Furosemide No 1{table QD Furosemide 40 MG 40 MG t} 40 MG Sotalol HCl Sotalol HCl No 1{table BID Sotalol 80 MG 80 MG t} HCl 80 MG Losartan Losartan No 1{table QD Losartan Potassium Potassium t} Potassium 50 MG 50 MG 50 MG Eliquis 5 Eliquis 5 No Eliquis 5 mg 5 mg mg 5 mg mg 5 mg Spironolact Spironolact No 1{table Spironolac one 25 MG one 25 MG t} tone 25 MG Esomeprazol Esomeprazol No 1{capsu QD Esomeprazo e Magnesium e Magnesium le} le 40 MG 40 MG Magnesium 40 MG Xarelto 15 Xarelto 15 No 1{table QD Xarelto 15 MG MG t_with_ MG food} Losartan Losartan No Losartan Potassium Potassium Potassium 50 MG 50 MG 50 MG Furosemide Furosemide No 1{table QD Furosemide 40 MG 40 MG t} 40 MG Sotalol HCl Sotalol HCl No 1{table BID Sotalol 80 MG 80 MG t} HCl 80 MG Losartan Losartan No 1{table QD Losartan Potassium Potassium t} Potassium 50 MG 50 MG 50 MG Eliquis 5 Eliquis 5 No Eliquis 5 mg 5 mg mg 5 mg mg 5 mg Spironolact Spironolact No 1{table Spironolac one 25 MG one 25 MG t} tone 25 MG Esomeprazol Esomeprazol No 1{capsu QD Esomeprazo e Magnesium e Magnesium le} le 40 MG 40 MG Magnesium 40 MG Xarelto 15 Xarelto 15 No 1{table QD Xarelto 15 MG MG t_with_ MG food} Losartan Losartan No Losartan Potassium Potassium Potassium 50 MG 50 MG 50 MG Furosemide Furosemide No 1{table QD Furosemide 40 MG 40 MG t} 40 MG Sotalol HCl Sotalol HCl No 1{table BID Sotalol 80 MG 80 MG t} HCl 80 MG Losartan Losartan No 1{table QD Losartan Potassium Potassium t} Potassium 50 MG 50 MG 50 MG Eliquis 5 Eliquis 5 No Eliquis 5 mg 5 mg mg 5 mg mg 5 mg Spironolact Spironolact No 1{table Spironolac one 25 MG one 25 MG t} tone 25 MG Esomeprazol Esomeprazol No 1{capsu QD Esomeprazo e Magnesium e Magnesium le} le 40 MG 40 MG Magnesium 40 MG Xarelto 15 Xarelto 15 No 1{table QD Xarelto 15 MG MG t_with_ MG food} Losartan Losartan No Losartan Potassium Potassium Potassium 50 MG 50 MG 50 MG Furosemide Furosemide No 1{table QD Furosemide 40 MG 40 MG t} 40 MG Sotalol HCl Sotalol HCl No 1{table BID Sotalol 80 MG 80 MG t} HCl 80 MG Losartan Losartan No 1{table QD Losartan Potassium Potassium t} Potassium 50 MG 50 MG 50 MG Eliquis 5 Eliquis 5 No Eliquis 5 mg 5 mg mg 5 mg mg 5 mg Spironolact Spironolact No 1{table Spironolac one 25 MG one 25 MG t} tone 25 MG Esomeprazol Esomeprazol No 1{capsu QD Esomeprazo e Magnesium e Magnesium le} le 40 MG 40 MG Magnesium 40 MG Xarelto 15 Xarelto 15 No 1{table QD Xarelto 15 MG MG t_with_ MG food} Losartan Losartan No Losartan Potassium Potassium Potassium 50 MG 50 MG 50 MG Furosemide Furosemide No 1{table QD Furosemide 40 MG 40 MG t} 40 MG Sotalol HCl Sotalol HCl No 1{table BID Sotalol 80 MG 80 MG t} HCl 80 MG Losartan Losartan No 1{table QD Losartan Potassium Potassium t} Potassium 50 MG 50 MG 50 MG Eliquis 5 Eliquis 5 No Eliquis 5 mg 5 mg mg 5 mg mg 5 mg Spironolact Spironolact No 1{table Spironolac one 25 MG one 25 MG t} tone 25 MG Esomeprazol Esomeprazol No 1{capsu QD Esomeprazo e Magnesium e Magnesium le} le 40 MG 40 MG Magnesium 40 MG Xarelto 15 Xarelto 15 No 1{table QD Xarelto 15 MG MG t_with_ MG food} Losartan Losartan No Losartan Potassium Potassium Potassium 50 MG 50 MG 50 MG Furosemide Furosemide No 1{table QD Furosemide 40 MG 40 MG t} 40 MG Sotalol HCl Sotalol HCl No 1{table BID Sotalol 80 MG 80 MG t} HCl 80 MG Losartan Losartan No 1{table QD Losartan Potassium Potassium t} Potassium 50 MG 50 MG 50 MG Eliquis 5 Eliquis 5 No Eliquis 5 mg 5 mg mg 5 mg mg 5 mg Spironolact Spironolact No 1{table Spironolac one 25 MG one 25 MG t} tone 25 MG Spironolact Spironolact No 1{table Spironolac one 25 MG one 25 MG t} tone 25 MG Sotalol HCl Sotalol HCl No 1{table BID Sotalol 80 MG 80 MG t} HCl 80 MG Losartan Losartan No 1{table QD Losartan Potassium Potassium t} Potassium 50 MG 50 MG 50 MG Furosemide Furosemide No 1{table QD Furosemide 40 MG 40 MG t} 40 MG Eliquis 5 Eliquis 5 No Eliquis 5 mg 5 mg mg 5 mg mg 5 mg Esomeprazol Esomeprazol No 1{capsu QD Esomeprazo e Magnesium e Magnesium le} le 40 MG 40 MG Magnesium 40 MG Xarelto 15 Xarelto 15 No 1{table QD Xarelto 15 MG MG t_with_ MG food} Losartan Losartan No Losartan Potassium Potassium Potassium 50 MG 50 MG 50 MG Sotalol HCl Sotalol HCl No 1{table BID Sotalol 80 MG 80 MG t} HCl 80 MG Esomeprazol Esomeprazol No 1{capsu QD Esomeprazo e Magnesium e Magnesium le} le 40 MG 40 MG Magnesium 40 MG Spironolact Spironolact No 1{table Spironolac one 25 MG one 25 MG t} tone 25 MG Eliquis 5 Eliquis 5 No Eliquis 5 mg 5 mg mg 5 mg mg 5 mg Furosemide Furosemide No 1{table QD Furosemide 40 MG 40 MG t} 40 MG Xarelto 15 Xarelto 15 No 1{table QD Xarelto 15 MG MG t_with_ MG food} Losartan Losartan No Losartan Potassium Potassium Potassium 50 MG 50 MG 50 MG Sotalol HCl Sotalol HCl No 1{table BID Sotalol 80 MG 80 MG t} HCl 80 MG Esomeprazol Esomeprazol No 1{capsu QD Esomeprazo e Magnesium e Magnesium le} le 40 MG 40 MG Magnesium 40 MG Spironolact Spironolact No 1{table Spironolac one 25 MG one 25 MG t} tone 25 MG Eliquis 5 Eliquis 5 No Eliquis 5 mg 5 mg mg 5 mg mg 5 mg Furosemide Furosemide No 1{table QD Furosemide 40 MG 40 MG t} 40 MG Xarelto 15 Xarelto 15 No 1{table QD Xarelto 15 MG MG t_with_ MG food} Losartan Losartan No Losartan Potassium Potassium Potassium 50 MG 50 MG 50 MG Immunizations Ordered Immunization Filled Immunization Date Status Commen ts Source Name Name Prevnar 20 (PCV20) Prevnar 20 (PCV20) 2021-12-24 Completed [facility] 11:41:00 - [facility] Prevnar 20 (PCV20) Prevnar 20 (PCV20) 2021-12-24 Completed [facility] 11:41:00 - [facility] Prevnar 20 (PCV20) Prevnar 20 (PCV20) 2021-12-24 Completed [facility] 11:41:00 - [facility] Prevnar 20 (PCV20) Prevnar 20 (PCV20) 2021-12-24 Completed [facility] 11:41:00 - [facility] Prevnar 20 (PCV20) Prevnar 20 (PCV20) 2021-12-24 Completed [facility] 11:41:00 - [facility] Prevnar 20 (PCV20) Prevnar 20 (PCV20) 2021-12-24 Completed [facility] 11:41:00 - [facility] Prevnar 20 (PCV20) Prevnar 20 (PCV20) 2021-12-24 Completed [facility] 11:41:00 - [facility] Prevnar 20 (PCV20) Prevnar 20 (PCV20) 2021-12-24 Completed [facility] 11:41:00 - [facility] Moderna COVID-19 Moderna COVID-19 2020-12-12 Completed [facility] Vaccine Vaccine 10:32:00 - [facility] Moderna COVID-19 Moderna COVID-19 2020-12-12 Completed [facility] Vaccine Vaccine 10:32:00 - [facility] Moderna COVID-19 Moderna COVID-19 2020-12-12 Completed [facility] Vaccine Vaccine 10:32:00 - [facility] Moderna COVID-19 Moderna COVID-19 2020-12-12 Completed [facility] Vaccine Vaccine 10:32:00 - [facility] Moderna COVID-19 Moderna COVID-19 2020-12-12 Completed [facility] Vaccine Vaccine 10:32:00 - [facility] Moderna COVID-19 Moderna COVID-19 2020-12-12 Completed [facility] Vaccine Vaccine 10:32:00 - [facility] Moderna COVID-19 Moderna COVID-19 2020-12-12 Completed [facility] Vaccine Vaccine 10:32:00 - [facility] Moderna COVID-19 Moderna COVID-19 2020-12-12 Completed [facility] Vaccine Vaccine 10:32:00 [facility] Moderna COVID-19 Moderna COVID-19 2020-12-12 Completed [facility] Vaccine Vaccine 10:32:00 - [facility] Moderna COVID-19 Moderna COVID-19 2020-12-12 Completed [facility] Vaccine Vaccine 10:32:00 - [facility] Moderna COVID-19 Moderna COVID-19 2020-12-12 Completed [facility] Vaccine Vaccine 10:32:00 - [facility] Moderna COVID-19 Moderna COVID-19 2020-12-12 Completed [facility] Vaccine Vaccine 10:32:00 - [facility] Moderna COVID-19 Moderna COVID-19 2020-11-14 Completed [facility] Vaccine Vaccine 08:12:00 - [facility] Moderna COVID-19 Moderna COVID-19 2020-11-14 Completed [facility] Vaccine Vaccine 08:12:00 [facility] Moderna COVID-19 Moderna COVID-19 2020-11-14 Completed [facility] Vaccine Vaccine 08:12:00 [facility] Moderna COVID-19 Moderna COVID-19 2020-11-14 Completed [facility] Vaccine Vaccine 08:12:00 - [facility] Moderna COVID-19 Moderna COVID-19 2020-11-14 Completed [facility] Vaccine Vaccine 08:12:00 [facility] Moderna COVID-19 Moderna COVID-19 2020-11-14 Completed [facility] Vaccine Vaccine 08:12:00 [facility] Moderna COVID-19 Moderna COVID-19 2020-11-14 Completed [facility] Vaccine Vaccine 08:12:00 [facility] Moderna COVID-19 Moderna COVID-19 2020-11-14 Completed [facility] Vaccine Vaccine 08:12:00 [facility] Moderna COVID-19 Moderna COVID-19 2020-11-14 Completed [facility] Vaccine Vaccine 08:12:00 [facility] Moderna COVID-19 Moderna COVID-19 2020-11-14 Completed [facility] Vaccine Vaccine 08:12:00 [facility] Moderna COVID-19 Moderna COVID-19 2020-11-14 Completed [facility] Vaccine Vaccine 08:12:00 [facility] Moderna COVID-19 Moderna COVID-19 2020-11-14 Completed [facility] Vaccine Vaccine 08:12:00 - [facility] Vital Signs Vital Name Observation Time Observation Value Comments Source height 2021-12-24 10:30:00 60.00 [in_i] [facility] weight 2021-12-24 10:30:00 164.8 [lb_av] [facility] temperature 2021-12-24 10:30:00 97.5 [degF] [facility] bmi 2021-12-24 10:30:00 32.18 kg/m2 [facility] oximetry 2021-12-24 10:30:00 98 % [facility] respiratory rate 2021-12-24 10:30:00 16 /min Comm on [facility] blood pressure 2021-12-24 10:30:00 131 mm[Hg] [facility] - systolic [facility] blood pressure 2021-12-24 10:30:00 72 mm[Hg] Common [facility] - diastolic [facility] height 2021-12-24 10:20:00 60.00 [in_i] [facility] weight 2021-12-24 10:20:00 164.8 [lb_av] [facility] temperature 2021-12-24 10:20:00 97.5 [degF] [facility] bmi 2021-12-24 10:20:00 32.18 kg/m2 [facility] oximetry 2021-12-24 10:20:00 98 % Common [facility] respiratory rate 2021-12-24 10:20:00 16 /min Comm on [facility] blood pressure 2021-12-24 10:20:00 131 mm[Hg] Common [facility] - systolic [facility] blood pressure 2021-12-24 10:20:00 72 mm[Hg] Common [facility] - diastolic [facility] Systolic blood 2022-04-07 10:47:00 109 mm[Hg] [facility] Diastolic blood 2022-04-07 10:47:00 63 mm[Hg] [facility] Heart rate 2022-04-07 10:47:00 67 /min [facility] Body temperature 2022-04-07 10:47:00 36.33 Lilina [facility] Respiratory rate 2022-04-07 10:47:00 18 /min [facility] Body height 2022-04-07 10:47:00 152.4 cm [facility] Body weight 2022-04-07 10:47:00 73.483 kg [facility] BMI 2022-04-07 10:47:00 31.64 kg/m2 [facility] Oxygen saturation in 2022-04-07 10:47:00 99 /min [facility] Arterial blood by Medical Ce nter Pulse oximetry Procedures Procedure Date / Time Performed Performing Clinician Sour e MR ABDOMEN WITH & WITHOUT 2022-04-19 11:36:00 Traci Gill [facility] IV CONTRAST [facility] PROTHROMBIN TIME/INR 2022-04-07 12:49:00 Traci Gill [facility] [id number]\, 2022-04-07 12:49:00 Traci Gill [facility] COMPREHENSIVE METABOLIC 2022-04-07 12:48:00 Traci Gill [facility] BILIRUBIN, DIRECT 2022-04-07 12:48:00 Traci Gill [facility] CBC W/PLT COUNT & AUTO 2022-04-07 12:48:00 Traci Gill [facility] HEPATITIS A ANTIBODY, IGG 2022-04-07 12:48:00 Traci Gill [facility] HEPATITIS A ANTIBODY, IGM 2022-04-07 12:48:00 Traci iGll [facility] HEPATITIS B SURFACE 2022-04-07 12:48:00 Traci Gill [facility] HEPATITIS B SURFACE 2022-04-07 12:48:[address] [facility] ANTIBODY [facility] HEPATITIS B CORE 2022-04-07 12:48:[address] [facility] ANTIBODY, TOTAL [facility] Center HEPATITIS C ANTIBODY 2022-04-07 12:48:[address] [facility] IRON, TIBC, % SAT. 2022-04-07 12:48:00 Tr[facility] Gill [facility] [place] 2022-04-07 12:48:00 Traci Gill [facility] CERULOPLASMIN 2022-04-07 12:48:00 Traci Gill [facility] ANTI-NUCLEAR ANTIBODY 2022-04-07 12:48:[address] [facility] (NATALIA) [facility] ACTIN (SMOOTH MUSCLE) 2022-04-07 12:48:[address] [facility] ANTIBODY, IGG [facility] MITOCHONDRIA M2 ANTIBODY 2022-04-07 12:48:[address] [facility] (IGG) [facility] ALPHA FETOPROTEIN (AFP), 2022-04-07 12:48:[address] [facility] TUMOR MARKER [facility] CBC W/PLT COUNT & AUTO 2022-04-07 12:48:[address] [facility] DIFFERENTIAL [facility] Center Plan of Care Planned Activity Planned Date Details Comments Source Future Scheduled 2022-02-04 INFLUENZA VACCINE (#1) [facility] 00:00:00 [code = INFLUENZA Medical Ce nter VACCINE (#1)] Future Scheduled 2021-06-[address] [facility] Test 00:00:00 (12+) [code = Medical Center DEPRESSION SCREENING (12+)] Future Scheduled 2021-06-06 FALLS RISK SCREENING [facility] Test 00:00:00 [code = FALLS RISK Medical C enter SCREENING] Future Scheduled 2021-06-06 Medicare IPPE (WELCOME [facility] 00:00:00 TO MEDICARE) [code = Medical Center Medicare IPPE (WELCOME TO MEDICARE)] Future Scheduled 2021-05-14 COVID-19 VACCINE (3 - [facility] 00:00:00 [facility] Center series) [code = COVID-19 VACCINE (3 - Booster for Moderna series)] Future Scheduled 2014 PNEUMOCOCCAL 65+ YRS ([address] [facility] Test 00:00:00 - PCV) [code = Medical Cente r PNEUMOCOCCAL 65+ YRS (1 - PCV)] Future Scheduled 1999-08-27 SHINGLES VACCINES ([address] [facility] Test 00:00:00 2) [code = SHINGLES [facility] Center VACCINES (1 of 2)] Future Scheduled 1968 DTAP/TDAP/TD VACCINES [facility] Test 00:00:00 (1 - Tdap) [code = Medical C enter DTAP/TDAP/TD VACCINES (1 - Tdap)] Future Scheduled 1949 Screening for malignant [facility] Test 00:00:00 neoplasm of breast Medical C enter (procedure) [code = 477382194] Future Scheduled 1949 CT Colonography (combo) [facility] Test 00:00:00 [code = CT Colonography [facility] (combo)] Future Scheduled 1949 Screening for malignant [facility] Test 00:00:00 neoplasm of colon Medical Ce nter (procedure) [code = 130264611] Future Scheduled 1949 Screening for malignant [facility] Test 00:00:00 neoplasm of colon Medical Ce nter (procedure) [code = 708352243] Future Scheduled 1950 DXA SCAN [code = DXA [facility] Test 00:00:00 SCAN] [facility] Future Scheduled 1949 Screening for malignant [facility] Test 00:00:00 neoplasm of colon Medical Ce nter (procedure) [code = 378568952] Future Scheduled 1950 Screening for malignant [facility] 00:[facility]:00 neoplasm of colon Medical Ce nter (procedure) [code = 397329052] Future Scheduled 1950 Sigmoidoscopy [facility]code [facility]] Medical Cente r Encounters Start End Encounter Admission Attending Care Care Encounter Source Date/Time Date/Time Type Type Clinicians Facility Department ID 2022-03-24 Outpatient Carranza, Na STLMLC STLMLC [id number] 2 Common 10:06:02 [facility] 2021-12-31 Outpatient Carranza, Na STLMLC STLMLC [id number] 2 Common 11:27:01 [facility] 2021-12-22 Outpatient Carranza, Na STLMLC STLMLC [id number] 2 Common 13:44:02 [facility] 2021-09-03 Outpatient Carranza, Na STLMLC STLMLC [id number] 2 Common 10:53:01 [facility] 2021-07-01 Outpatient Carranza, Na STLMLC STLMLC [id number] 2 Common 13:47:10 [id number] [facility] 2021-07-01 Outpatient Carranza, Na STLMLC STLMLC [id number] 2 Common 13:46:27 [id number] [facility] 2021-07-01 Outpatient Carranza, Na STLMLC STLMLC [id number] 2 Common 13:13:59 [id number] [facility] 2021-07-01 Outpatient Carranza, Na STLMLC STLMLC [id number] 2 Common 13:13:10 [id number] [facility] 2021-07-01 Outpatient Carranza, Na STLMLC STLMLC [id number] 2 Common 13:12:28 [id number] [facility] 2021-07-01 Outpatient Carranza, Na STLMLC STLMLC [id number] 2 Common 13:05:19 [id number] [facility] 2022-04-19 2022-04-19 [facility] Traci Gill [facility] [id number] 10:[facility] 10:00:00 Encounter 1.5, [facility] Hilary [facility] 2022-04-19 2022-04-19 [facility] [id number] 00:00[facility]00 00[facility]00 [facility] 2022-04-09 2022-04-09 Documentat Meagan, [facility] [id number] 00:[facility]00 00:00:00 ion Amrita [facility] 2022-04-07 2022-04-[address] [facility] [id number] 10:30:00 11:30:[address] [facility] 2022-03-12 2022-03-12 (TEL) STLMLC STLMLC [id number] Co mmon 00:00:00 00:00:00 [facility] 2022-03-11 2022-03-11 Outpatient FRANSISCA BRIDGET, [facility] [id number] [facility] 00:00:00 00:00:00 [facility] 2022-02-17 2022-02-17 (TEL) STLMLC STLMLC [id number] Co mmon 00:00:00 00:00:00 [facility] 2022-02-15 2022-02-15 (TEL) STLMLC STLMLC [id number] Co mmon 00:00:00 00:00:00 [facility] 2022-01-18 2022-01-18 (TEL) STLMLC STLMLC [id number] Co mmon 00:00:00 00:00:00 [facility] 2021-12-29 2021-12-29 (TEL) STLMLC STLMLC [id number] Co mmon 00:00:00 00:00:00 [facility] 2021-12-24 2021-12-24 SUB ANNUAL STLMLC STLMLC [id number] Common 00:00:00 00:00:00 MCR Spirit [facility] VISIT [facility] 2021-12-24 2021-12-24 OFFICE STLMLC STLMLC [id number] Co mmon 00:00:00 00:00:00 VISIT EST Spir it PT LEVEL 3 - [facility] 2021-11-19 2021-11-19 (TEL) STLMLC STLMLC [id number] Co mmon 00:00:00 00:00:00 [facility] 2021-11-11 2021-11-11 Outpatient FRANSISCA Prado, [facility] [id number] [facility] 10:36:00 10:36:00 Ana 55 [facility] 2021-11-11 2021-11-11 Outpatient FRANSISCA Prado, [facility] [id number] [facility] 10:36:00 10:36:00 Ana [id number] [facility] 2021-09-09 2021-09-09 (TEL) STLMLC STLMLC [id number] Co mmon 00:00:00 00:00:00 [facility] 2021-09-03 2021-09-03 (TEL) STLMLC STLMLC [id number] Co mmon 00:00:00 00:00:00 [facility] 2021-06-17 2021-06-17 (TEL) STLMLC STLMLC [id number] Co mmon 00:00:00 00:00:00 [facility] 2021-02-12 2021-02-12 Outpatient STLMLC STLMLC [id number] Common 00:00:00 00:00:00 [facility] 2020-12-12 2020-12-12 Outpatient STLMLC STLMLC [id number] Common 00:00:00 00:00:00 [facility] 2020-11-17 2020-11-17 Outpatient STLMLC STLMLC [id number] Common 00:00:00 00:00:00 [facility] 2020-11-14 2020-11-14 Outpatient STLMLC STLMLC [id number] Common 00:00:00 00:00:00 [facility] 2020-11-14 2020-11-14 Outpatient STLMLC STLMLC [id number] Common 00:00:00 00:00:00 [facility] 2020-11-14 2020-11-14 Outpatient STLMLC STLMLC [id number] Common 00:00:00 00:00:00 [facility] 2019-07-25 2019-07-25 Outpatient Gwen-Mbmicko VFP VFP [id number] [facility] 07:12:00 07:12:00 _A_ [id number] [facility] 2019-07-25 2019-07-25 Outpatient Finesse [facility] [id number] [facility] 07:12:00 07:12:00 _A_ [id number] [facility] Practic e Results Test Description Test Time Test Comments Results Result Sourc e Comments MR, ABDOMEN, 2022-04-19 Referring WITHOUT / WITH IV 15:26:00 Physician:RUTHANN CONTRAST MAGNUS MD [facility]IP[facility] - Please use [facility] CENTERName: renal protocol. AIMEE FLAHERTY To r/o HCC JANIYA : Unlisted Reason 1950 Sex: for Exam - F Click Yes and Enter Reason Below->Yes *FINAL REPORT Unlisted Reason for TECHNIQUE: MRI of Exam->Cirrhosis the abdomen WITHOUT and WITH intravenous contrast. INDICATION: Unlisted Reason for ExamCirrhosis. COMPARISON: Outside hospital abdomen/pelvis CT on 02/23/2022. FINDINGS: LOWER THORAX: Large right and small left pleural effusions with compressive atelectasis. Susceptibility-relat ed signal loss in the region of the aortic and mitral valves is consistent with calcifications better seen on CT. LIVER: Cirrhotic morphology. Arterially enhancing lesions throughout the liver, largest with washout and pseudocapsule, as described below:*3.4 x 4.3 cm segment 2 (arterial postcontrast image 38). LR-5*5.5 x 4.2 cm segment 3/4B (arterial postcontrast image 57). LR-5*3.5 x 6.9 cm segment 6 (arterial postcontrast image 64) with associated tumor in vein in the right portal vein (best seen on series 1404, image 58). LR-TIV*2.1 x 2.2 cm segment 4B (arterial post contrast image 58). LR-5There are numerous additional subcentimeter foci of enhancement infiltrating the left hepatic lobe, extending into segment 8 as well, likely infiltrative tumor. Subcentimeter cyst near the hepatic dome. BILIARY: Multiple gallstones. No biliary ductal dilatation or filling defect.SPLEEN: Spleen is enlarged measuring 14.3 cm.PANCREAS: Fatty atrophy of the pancreas. No focal masses or ductal dilatation. ADRENALS: No adrenal nodules.KIDNEYS/URET ERS: No hydronephrosis or solid mass lesions. A 2.5 cm simple cyst in the right kidney interpolar region, no follow-up imaging recommended. PERITONEUM/RETROPERI TONEUM: Trace ascites.LYMPH NODES: No abnormally enlarged lymph nodes.VESSELS: Conventional hepatic arterial anatomy. Main portal vein measures 1.1 cm. Right portal vein tumor thrombus as above. Left portal vein is small in caliber. Esophageal, perigastric, and splenic varices. Circumaortic left renal vein. GI TRACT: No distention or wall thickening. BONES AND SOFT TISSUES: Degenerative changes of the spine. Mild subcutaneous edema of the posterior lower back soft tissues. 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 2.Sequelae of portal hypertension include splenomegaly, ascites, and esophageal, perigastric, and splenic varices. 3.Cholelithiasis. 4.Large right and small left pleural effusions with compressive atelectasis. Signed: Aj Marr [facility] Verified Date/Time: 04/19/2022 15:26:57 Reading Location: [facility] C0W Consult Reading Room -NUCLEAR ANTIBODY (NATALIA) 2022-04-08 12:27:10 Test Item Value Reference Range Interpretation Comme nts ANTI-NUCLEAR ANTIBODY (NATALIA) (BEAKER) (test code = 418) Negative Negative Test performed by IFA method.Test performed by IFA method.[id number] 15:55:11 Test Item Value Reference Range Interpretation Comments FERRITIN (BEAKER) (test code = 39.18 ng/mL 5.00-275.00 361) Supervisor Parking Lot ID - BSHEPATITIS B SURFACE [id number] 15:16:02 Test Item Value Reference Range Interpretation Comments HEPATITIS B SURFACE ANTIBODY < mIU/mL <8.0 (BEAKER) (test code = 647) Supervisor Parking Lot ID - MITCHHEPATITIS B SURFACE [id number] 15:14:42 Test Item Value Reference Range Interpretation Comments HEPATITIS B SURFACE ANTIGEN (2) Nonreactive Nonreactive (BEAKER) (test code = 2585) Specimen is considered negative for HBsAg.HEPATITIS C [id number] 15:14:42 Test Item Value Reference Range Interpretation Comments HEPATITIS C ANTIBODY (BEAKER) Nonreactive Nonreactive (test code = 367) Supervisor Parking Lot ID - MITCHIRON, TIBC, % SAT. (WITHOUT FERRITIN)2022-04-07 14:58:14 Test Item Value Reference Range Interpretation Comments IRON (BEAKER) (test code = 547) 36.0 ug/dL 40.0-160.0 L TOTAL IRON BINDING CAPACITY 486 ug/dL 250-450 H (BEAKER) (test code = 769) IRON % SATURATION (2) (BEAKER) 7 % 20-55 L (test code = 2590) Supervisor Parking Lot ID - MITCHHEPATITIS B CORE ANTIBODY, [id number] 14:31:45 Test Item Value Reference Range Interpretation Comments HEPATITIS B CORE TOTAL ANTIBODY Nonreactive Nonreactive (BEAKER) (test code = 497) Supervisor Parking Lot ID - MITCHHEPATITIS A ANTIBODY, [id number] 14:31:45 Test Item Value Reference Range Interpretation Comments HEPATITIS A IGG ANTIBODY (BEAKER) Nonreactive Nonreactive (test code = 2797) Supervisor Parking Lot ID - MITCHHEPATITIS A ANTIBODY, [id number] 14:31:45 Test Item Value Reference Range Interpretation Comments HEPATITIS A IGM ANTIBODY (BEAKER) Nonreactive Nonreactive (test code = 498) Supervisor Parking Lot ID - MITCHALPHA FETOPROTEIN (AFP), TUMOR [id number] 14:31:40 Test Item Value Reference Range Interpretation Comments ALPHA-FETOPROTEIN (BEAKER) (test 1196.3 ng/mL <10.0 H code = 1094) Supervisor Parking Lot ID - MITCHCOMPREHENSIVE METABOLIC [id number] 14:21:21 Test Item Value Reference Range Interpretation Comments TOTAL PROTEIN 7.5 gm/dL 6.0-8.3 (BEAKER) (test code = 770) ALBUMIN (BEAKER) 3.6 g/dL 3.5-5.0 (test code = 1145) ALKALINE 127 U/L 40-150 PHOSPHATASE (BEAKER) (test code = 346) BILIRUBIN TOTAL 1.5 mg/dL 0.2-1.2 H (BEAKER) (test code = 377) SODIUM (BEAKER) 138 meq/L 136-145 (test code = 381) POTASSIUM (BEAKER) 5.1 meq/L 3.5-5.1 (test code = 379) CHLORIDE (BEAKER) 107 meq/L 98-107 (test code = 382) CO2 (BEAKER) (test 21 meq/L 22-29 L code = 355) BLOOD UREA 39 mg/dL 7-21 H NITROGEN (BEAKER) (test code = 354) CREATININE 1.53 mg/dL 0.57-1.25 H (BEAKER) (test code = 358) GLUCOSE RANDOM 99 mg/dL 70-105 (BEAKER) (test code = 652) CALCIUM (BEAKER) 10.4 mg/dL 8.4-10.2 H (test code = 697) AST (SGOT) 30 U/L 5-34 (BEAKER) (test code = 353) ALT (SGPT) 16 U/L 6-55 (BEAKER) (test code = 347) EGFR (BEAKER) 36 Interpretatio n of eGFR (test code = 1092) mL/min/1.73 values S tage Description sq m Result G1 Kristal l or high >=90 G2 Mildly decreased 60-89 G3a Mildl y to moderately 45-5 9 G3b Moderately to s everely 30-44 G4 Severl y decreased 15-29 G5 Kidney failure <15Reported eGF R is based on the CKD-EPI 2021 equation that d oes not use a race coefficientEsti mated GFR is not as accur ate as Creatinine [facility] vann in predicting glom erular filtration rate . Estimated GFR is not appl icable for dialysis patien ts Supervisor Parking Lot ID - MITCHBILIRUBIN, [id number] 14:21:21 Test Item Value Reference Range Interpretation Comments BILIRUBIN DIRECT (BEAKER) (test 0.7 mg/dL 0.1-0.5 H code = 706) Supervisor Parking Lot ID - [id number] 14:12:15 Test Item Value Reference Range Interpretation Comments ALPHA-1 ANTITRYPSIN (BEAKER) 228.10 mg/dL 90.00-200.00 H (test code = 502) Supervisor Parking Lot ID - ALEXIAPROTHROMBIN [id number] 14:03:52 Test Item Value Reference Range Interpretation Comments PROTIME (BEAKER) 27.1 seconds 11.9-14.2 H (test code = 759) INR (BEAKER) (test 2.70 See_Comment [Automat ed message] code = 370) The system [employer]-Art generated this result transmitted ref erence range: <=5.90. The reference range was not used to int erpret this result as normal/abnormal . RECOMMENDED COUMADIN/WARFARIN INR THERAPY RANGESSTANDARD DOSE: 2.0 - 3.0 Includes: PROPHYLAXIS for venous thrombosis, systemic embolization; TREATMENT for venous thrombosis and/or pulmonary embolus.HIGH RISK: Target INR is 2.5-3.5 for patients with mechanical heart valves.CBC W/PLT COUNT & AUTO [id number] 13:54:45 Test Item Value Reference Range Interpretation Comments WHITE BLOOD CELL COUNT (BEAKER) 5.7 K/ L 3.5-10.5 (test code = 775) RED BLOOD CELL COUNT (BEAKER) 3.98 M/ L 3.93-5.22 (test code = 761) HEMOGLOBIN (BEAKER) (test code = 10.0 GM/DL 11.2-15.7 L 410) HEMATOCRIT (BEAKER) (test code = 32.2 % 34.1-44.9 L 411) MEAN CORPUSCULAR VOLUME (BEAKER) 81 fL 79-95 (test code = 753) MEAN CORPUSCULAR HEMOGLOBIN 25.1 pg 25.6-32.2 L (BEAKER) (test code = 751) MEAN CORPUSCULAR HEMOGLOBIN CONC 31.1 GM/DL 32.2-35.5 L (BEAKER) (test code = 752) RED CELL DISTRIBUTION WIDTH 16.7 % 11.7-14.4 H (BEAKER) (test code = 412) PLATELET COUNT (BEAKER) (test 203 K/CU MM 150-450 code = 756) MEAN PLATELET VOLUME (BEAKER) 11.3 fL 9.4-12.3 (test code = 754) NUCLEATED RED BLOOD CELLS 0 /100 WBC 0-0 (BEAKER) (test code = 413) NEUTROPHILS RELATIVE PERCENT 58 % (BEAKER) (test code = 429) LYMPHOCYTES RELATIVE PERCENT 24 % (BEAKER) (test code = 430) MONOCYTES RELATIVE PERCENT 12 % (BEAKER) (test code = 431) EOSINOPHILS RELATIVE PERCENT 6 % (BEAKER) (test code = 432) BASOPHILS RELATIVE PERCENT 1 % (BEAKER) (test code = 437) NEUTROPHILS ABSOLUTE COUNT 3.31 K/ L 1.56-6.13 (BEAKER) (test code = 670) LYMPHOCYTES ABSOLUTE COUNT 1.35 K/ L 1.18-3.74 (BEAKER) (test code = 414) MONOCYTES ABSOLUTE COUNT (BEAKER) 0.68 K/ L 0.24-0.36 H (test code = 415) EOSINOPHILS ABSOLUTE COUNT 0.35 K/ L 0.04-0.36 (BEAKER) (test code = 416) BASOPHILS ABSOLUTE COUNT (BEAKER) 0.04 K/ L 0.01-0.08 (test code = 417) IMMATURE GRANULOCYTES-RELATIVE 0.20 % 0.00-1.00 PERCENT (BEAKER) (test code = 2801) Comp. Metabolic Panel (14) ([facility])2021-12-24 00:00:00 Test Item Value Reference Range Interpretation Comments Glucose (test code = 102 mg/dL See_Comment H [Autom ated message] 0165-7) The system [employer]Art generated this result transmitted ref erence range: 65-99 mg /dL. The reference r amari was not used to interpret this result as normal/abnor mal. BUN (test code = 31 mg/dL See_Comment H [Automated message] 3094-0) The system [employer] generated this result transmitted ref erence range: 8-27 mg/ dL. The reference r amari was not used to interpret this result as normal/abnor mal. Creatinine (test code 1.57 mg/dL See_Comment H [Auto mated message] = 2160-0) The system [employer]Art generated this result transmitted ref erence range: 0.57-1.0 0 mg/dL. The refe rence range was not u sed to interpret this result as normal/abnor mal. BUN/Creatinine Ratio 20 12-28 (test code = 3097-3) Sodium (test code = 140 mmol/L See_Comment [Automa cruz message] 2951-2) The system [facility] generated this result transmitted ref erence range: 134-144 mmol/L. The ref erence range was not u sed to interpret this result as normal/abnor mal. Potassium (test code = 4.2 mmol/L See_Comment [Aut omated message] 4363-3) The system [facility] generated this result transmitted ref erence range: 3.5-5.2 mmol/L. The ref erence range was not u sed to interpret this result as normal/abnor mal. Chloride (test code = 104 mmol/L See_Comment [Auto mated message] 2074-0) The system [facility] generated this result transmitted ref erence range: 96-106 m mol/L. The reference r amari was not used to interpret this result as normal/abnor mal. Carbon Dioxide, Total 21 mmol/L See_Comment [Auto mated message] (test code = 2028-02) The s tem which generated this result transmitted ref erence range: 20-29 mm ol/L. The reference r amari was not used to interpret this result as normal/abnor mal. Calcium (test code = 10.0 mg/dL See_Comment [Autom ated message] 81057-2) The system [facility] generated this result transmitted ref erence range: 8.7-10.3 mg/dL. The refe rence range was not u sed to interpret this result as normal/abnor mal. Protein, Total (test 7.0 g/dL See_Comment [Autom ated message] code = 8755-2) The system [facility] generated this result transmitted ref erence range: 6.0-8.5 g/dL. The reference r amari was not used to interpret this result as normal/abnor mal. Albumin (test code = 3.7 g/dL See_Comment [Autom ated message] 9627-7) The system [facility] generated this result transmitted ref erence range: 3.7-4.7 g/dL. The reference r amari was not used to interpret this result as normal/abnor mal. Globulin, Total (test 3.3 g/dL See_Comment [Auto mated message] code = 38761-6) The system [facility] generated this result transmitted ref erence range: 1.5-4.5 g/dL. The reference r amari was not used to interpret this result as normal/abnor mal. A/G Ratio (test code = 1.1 1.2-2.2 L 1759-0) Bilirubin, Total (test 1.5 mg/dL See_Comment H [Aut omated message] code = 1975-2) The system [facility] generated this result transmitted ref erence range: 0.0-1.2 mg/dL. The reference r amari was not used to interpret this result as normal/abnor mal. Alkaline Phosphatase 122 IU/L See_Comment H [Autom ated message] (test code = 6768-6) The [facility] tem which generated this result transmitted ref erence range: 44-121 I U/L. The reference r amari was not used to interpret this result as normal/abnor mal. AST (SGOT) (test code 29 IU/L See_Comment [Auto mated message] = 1920-8) The system [facility] generated this result transmitted ref erence range: 0-40 IU/ L. The reference range was not used to int erpret this result as normal/abnormal . ALT (SGPT) (test code 17 IU/L See_Comment [Auto mated message] = 1742-6) The system [facility] generated this result transmitted ref erence range: 0-32 IU/ L. The reference range was not used to int erpret this result as normal/abnormal . VITAMIN D, 1, 25- DIHYDROXY, [id number] 00:00:00 Test Item Value Reference Range Interpretation Comments Calcitriol(1,25 16.1 pg/mL See_Comment L [Automated message] di-OH Vit D) (test The syste m which code = 1649-3) generated thi s result transmitted ref erence range: 24.8-81. 5 pg/mL. The reference r amari was not used to int erpret this result as normal/abnormal . Vitamin D, 19.9 ng/mL See_Comment L [Automated mes liliana] 25-Hydroxy (test The system which code = 98501-1) generated th is result transmitted ref erence range: 30.0-100 .0 ng/mL. The refe rence range was not u sed to interpret this result as normal/abnor mal. Lipid Panel w/ Chol/HDL [id number] 00:00:00 Test Item Value Reference Range Interpretation Comments Cholesterol, Total 200 mg/dL See_Comment H [Automat ed message] (test code = 2093-3) The sys tem which generated this result transmitted ref erence range: 100-199 mg/dL. The reference r amari was not used to interpret this result as normal/abnor mal. Triglycerides (test 91 mg/dL See_Comment [Automa cruz message] code = 2571-8) The system [facility] generated this result transmitted ref erence range: 0-149 mg /dL. The reference r amari was not used to interpret this result as normal/abnor mal. HDL Cholesterol (test 45 mg/dL See_Comment [Auto mated message] code = 2085-9) The system [facility] generated this result transmitted ref erence range: >39 mg/d L. The reference range was not used to int erpret this result as normal/abnormal . T. Chol/HDL Ratio (test 4.4 ratio See_Comment [Au tomated message] code = 9830-1) The system [facility] generated this result transmitted ref erence range: 0.0-4.4 ratio. The reference r amari was not used to interpret this result as normal/abnor mal. Hemoglobin [id number] 00:00:00 Test Item Value Reference Range Interpretation Comments Hemoglobin A1c (test 5.5 % See_Comment [Autom ated message] The code = 4548-4) system which generated this result tra nsmitted reference range : 4.8-5.6 %. The referenc e range was not used to interpret this result as normal/abnormal . CBC With Differential/[id number] 00:00:00 Test Item Value Reference Range Interpretation Comments WBC (test code = 5.8 x10E3/uL See_Comment [Automated 6690-2) message] The sy stem which generated this result transmitted reference range : 3.4-10.8 x10E3/ uL. The reference r amari was not used to interpret this result as normal/abnormal . RBC (test code = 4.12 x10E6/uL See_Comment [Automate d 789-8) message] The sy stem which generated this result transmitted reference range : 3.77-5.28 x10E6 /uL. The reference r amari was not used to interpret this result as normal/abnormal . Hemoglobin (test code 11.0 g/dL See_Comment L [Auto mated = 718-7) message] The sy stem which generated this result transmitted reference range : 11.1-15.9 g/dL. The reference range was not used to interpret this result as normal/abnormal . Hematocrit (test code 34.9 % See_Comment [Auto mated = 4544-3) message] The sy stem which generated this result transmitted reference range : 34.0-46.6 %. Th e reference range was not used to interpret this result as normal/abnormal . MCV (test code = 85 fL See_Comment [Automated 787-2) message] The sy stem which generated this result transmitted reference range : 79-97 fL. The reference range was not used to interpret this result as normal/abnormal . MCH (test code = 26.7 pg See_Comment [Automated 785-6) message] The sy stem which generated this result transmitted reference range : 26.6-33.0 pg. T he reference range was not used to interpret this result as normal/abnormal . MCHC (test code = 31.5 g/dL See_Comment [Automate d 786-4) message] The sy stem which generated this result transmitted reference range : 31.5-35.7 g/dL. The reference range was not used to interpret this result as normal/abnormal . RDW (test code = 15.1 % See_Comment [Automated 788-0) message] The sy stem which generated this result transmitted reference range : 11.7-15.4 %. Th e reference range was not used to interpret this result as normal/abnormal . Platelets (test code 218 x10E3/uL See_Comment [Autom ated = 777-3) message] The sy stem which generated this result transmitted reference range : 150-450 x10E3/u L. The reference r amari was not used to interpret this result as normal/abnormal . Neutrophils (test 52 % Not Estab. % code = 770-8) Lymphs (test code = 26 % Not Estab. % 736-9) Monocytes (test code 13 % Not Estab. % = 5905-5) Eos (test code = 8 % Not Estab. % 713-8) Basos (test code = 1 % Not Estab. % 706-2) Immature Cells (test code = UNLOINC) Neutrophils 3.1 x10E3/uL See_Comment [Automated (Absolute) (test code messag e] The system = 751-8) which generated this result transmitted reference range : 1.4-7.0 x10E3/u L. The reference r amari was not used to interpret this result as normal/abnormal . Lymphs (Absolute) 1.5 x10E3/uL See_Comment [Automate d (test code = 731-0) message] The system which generated this result transmitted reference range : 0.7-3.1 x10E3/u L. The reference r amari was not used to interpret this result as normal/abnormal . Monocytes(Absolute) 0.7 x10E3/uL See_Comment [Automa cruz (test code = 742-7) message] The system which generated this result transmitted reference range : 0.1-0.9 x10E3/u L. The reference r amari was not used to interpret this result as normal/abnormal . Eos (Absolute) (test 0.5 x10E3/uL See_Comment H [Autom ated code = 711-2) message] The s ystem which generated this result transmitted reference range : 0.0-0.4 x10E3/u L. The reference r amari was not used to interpret this result as normal/abnormal . Baso (Absolute) (test 0.0 x10E3/uL See_Comment [Auto mated code = 704-7) message] The s ystem which generated this result transmitted reference range : 0.0-0.2 x10E3/u L. The reference r amari was not used to interpret this result as normal/abnormal . Immature Granulocytes 0 % Not Estab. % (test code = 58995-7) Immature Grans (Abs) 0.0 x10E3/uL See_Comment [Autom ated (test code = 40424-1) messag e] The system which generated this result transmitted reference range : 0.0-0.1 x10E3/u L. The reference r amari was not used to interpret this result as normal/abnormal . [facility] (test code = 23163-3) Hematology Comments: (test code = 49528-3) - CT ANGIO [id number] 00:00:00 [facility] 1950 Sex: F Name:AIMEE FLAHERTY [facility] : 1950 Age/S: 71 / F [address] [place] [address] Blvd Unit #: [id number] Loc: [place], [place] [address] Phys: Ana Prado [facility] Acct: [id number] Dis Date: Status: DEP CLI PHONE #: [phone] Exam Date: 11/11/2021 1237 FAX #: [phone] Reason: AORTIC STENOSIS EXAMS: CPT CODE: [id number] CT ANGIO CHEST 93926 PROCEDURE INFORMATION: Exam: CTA Chest Without And With ContrastExam date and time: 11/11/2021 11:47 AM Age: 71 years old Clinical indication: Other: Aortic stenosis TECHNIQUE: Imaging protocol: Computed tomographic angiography of the chest without and with contrast.3D rendering (Not supervised by radiologist): MIP and/or 3D reconstructed images were created by the technologist. Radiation optimization: All CT scans at this facility use at least one of these dose optimization techniques: automated exposure control; mA and/or kV adjustment per patient size (includes targeted exams where dose is matched to clinical indication); or iterative reconstruction. Contrastmaterial: ISOVUE 370; Contrast volume: 100 ml; Contrast route: INTRAVENOUS (IV); COMPARISON: No relev ant prior studies available. FINDINGS: There is a large right pleural effusion and a small left pleural effusion. There is atelectasis at the right lower lobe with atelectasis involving the right middle lobe and upper lobe. There is no pulmonary mass appreciated. The left lung demonstrates mild atelectasis at the left lung base. The heart size appears normal. There is no significant atherosclerotic calcification to the ascending aorta. There is a 3 vessel arch configuration. The descending thoracic aorta. Normal. The pulmonary artery slightly enlarged without evidence of pulmonary embolism. There is no mediastinal adenopathy. There is no pericardial effusion. Limited evaluation of the upper abdomen demonstrate at least 2 enhancing masses within the left lobe of the liver worrisome for regenerating nodules or hepatocellular carcinoma. The liver has a cirrhotic appearance. There is enlargement ofthe spleen consistent with portal hypertension. There is evidence for varicosities at the level of the GE junction consistent with esophageal varices. IMPRESSION: Large right pleural effusion. Small left pleural effusion. Significant atelectasis at the right lung. No pericardial effusion. Findings consistent with liver cirrhosis likely hepatocellular carcinoma of the left lobe of the liver with portal hypertension and gastroesophageal varices. Significant mitral annular calcification. Mild calcification to the aortic valve. Significant calcification to the left ventricular outflow tract PAGE 1 Signed Report (CONTINUED) Name: AIMEE FLAHERTY [facility] : 1950 Age/S: 71 / F [address] [place], [place] [address]vd Unit #: [id number] Loc: [place] [address] Phys: Ana Prado EAR[employer] SCIENCE TECHNICIAN Acct: [id number] Dis Date: Status: DEP CLI PHONE #: [phone] Exam Date: 11/11/2021 1238 FAX #: [phone] Reason: AORTIC STENOSIS EXAMS: CPT CODE: [id number] CT ANGIO CHEST 68087 (Continued) from the thick mitral annular calcification. PROCEDURE INFORMATION: Exam: CTA Heart and Coronary Arteries Without and With IV Contrast Exam date and time: 11/11/2021 11:47 AM Age: 71 years old Clinical indication: Other: Aortic stenosis TECHNIQUE: Imaging protocol: CTA heart, coronary arteries and bypass grafts (when present) without and with IV contrast material including 3D image postprocessing (including evaluation of cardiac structure and morphology, assessment of cardiac function, and evaluationof venous structures, if performed). 3D rendering (Not supervised by radiologist): MIP and/or 3D reconstructed images were created by the technologist. Radiation optimization: All CT scans at this facility use at least one of these dose optimization techniques: automated exposure control; mA and/or kV adjustment per patient size (includes targeted exams where dose is matched to clinical indication);or iterative reconstruction. Contrast material: ISOVUE 370; Contrast volume: 100 ml; Contrast route:INTRAVENOUS (IV); Other technique: 3D renderinD reconstructed images were created, reviewed and saved. COMPARISON: No relevant prior studies available. FINDINGS: Non-contrast images demonstrate significant mitral annular calcification. There is enlargement of the left atrium measuring 5.4 cm in APdimension. The left atrial appendage is slightly diminutive but fills normally with contrast. No obvious filling defects are appreciated. There is severe calcification appreciated to the aortic valve. C alcium score was estimated at 1519 units within the aortic valve. There is minimal atherosclerotic calcification appreciated to the ascending aorta. CARDIAC: Left main coronary artery (LMCA): The left main coronary artery is a medium vessel and bifurcates in LAD and LCX. It is patent with no evidenceof significant plaque or stenosis. Left anterior descending artery (LAD): The left anterior descending artery is patent with nonobstructive calcified plaque within the proximal LAD. The mid and distalLAD are difficult to evaluate. The LAD supplies 1 patent diagonal branch. Left circumflex artery (LCx): The left circumflex artery is patent PAGE 2 Signed Report (CONTINUED) Name: AIMEE FLAHERTY [facility] : 1950 Age/S: 71 / F [address] [place] [address] Blvd Unit #: [id number] Loc: [place] [address] Phys: Ana Prado EAR[employer] SCIENCE TECHNICIAN Acct: [id number] Dis Date: Status: DEP CLI PHONE #: [phone] Exam Date: 11/11/2021 1237 FAX #: [phone] Reason: AORTIC STENOSIS EXAMS: CPT CODE: [id number] CT ANGIOCHEST 94991 (Continued) with nonobstructive calcified plaque within the proximal circumflex. The circumflex supplies a large obtuse marginal branch plaque or stenosis. It gives off 2 patent obtuse marginal branches. Right coronary artery (RCA): The right coronary artery is patent proximally with mild to moderate plaque or stenosis. The mid and distal right coronary artery is difficult to evaluate dueto motion. . Pericardium: The pericardial contour is preserved with no effusion, thickening or calcifications. Lungs: There are moderate bilateral pleural effusions with bibasilar atelectasis. Mediastinal space: Limited views of the mediastinal space is unremarkable. Within the upper abdomen there tunde 3 cm enhancing peripheral density involving the left lobe of the liver. There is of unclear significance. Correlate with other studies. IMPRESSION: Significant annular calcification of the mitral valve. Mild enlargement of left atrium. Patent coronary vessels proximally with minimal calcified plaque. Mid and distal coronary vessels are difficult to evaluate. Mild aortic valvular calcification. Large right pleural effusion small left pleural effusion and bibasilar atelectasis. PROCEDURE INFORMATION: Exam: CTA Abdomen and Pelvis Without And With Contrast Exam date and time: 11/11/2021 11:47 AM Age: 71 years old Clinical indication: Other: Aortic stenosis TECHNIQUE: Imaging protocol: Computed tomographic angiography of the abdomen and pelvis without and with contrast. 3D rendering (Not supervised by radiologist): MIP and/or 3D reconstructed images were created by the technologist. Radiation optimization: All CT scans at this facility use at least one of these dose optimization techniques: automated exposure control; mA and/or kV adjustment per patient size (includes targeted exams where dose is matched to clinical indication); or iterative reconstruction. Contrast material: ISOVUE 370; Contrast volume: 100 ml; Contrast route: INTRAVENOUS (IV); COMPARISON: No relevantprior studies available. FINDINGS: PAGE 3 Signed Report (CONTINUED) Name: AIMEE FLAHERTY [facility] : 1950 Age/S: 71 / F [address] [place] [address] Unit #: [id number] Loc: [place] [address] Phys: Ana Prado Acct: [id number] Dis Date: Status: DEP CLI PHONE #: [phone] Exam Date: 11/11/2021 1236 FAX #: [phone] Reason: AORTIC STENOSIS EXAMS: CPT CODE: [id number] CT ANGIO [facility] [address] (Continued) There is a large right pleural effusion and a small moderate left pleural effusion. There are gastroesophageal varices with a cirrhotic liver and enlarged spleen consistent with portal hypertension. Within the left lobe liver there are 2 enhancing exophytic liver lesions thought to represent regenerating nodules or pelvis cell carcinoma. There are stones within a contracted gallbladder. There is no ascites. Pancreas appears normal. The portal vein is patent. There is a right renal cyst without hydronephrosis. The left kidney appears normal. Both adrenal glands are normal. There is no periportal adenopathy. There is no retroperitoneal adenopathy. The unopacified small and large bowel appear normal without obstruction. Within the pelvis there is no free fluid. There is no adenopathy. Are degenerative changes of the lumbar spine without significant vertebral body height loss.IMPRESSION: Patient with cirrhotic liver and findings of portal hypertension with gastroesophageal varices. 2 enhancing masses (greater than 3 cm) within the liver most consistent with hepatocellular carcinoma. There is no ascites. There is gallstone within the gallbladder. The abdominal aorta appears patent. Both common iliac arteries are patent. Both external iliac arteries are patent. There is a large right pleural effusion in a small to moderate left pleural effusion. at 0033 Reported and signed by: Maximus Bowden M.D CC: Ana White MD Technologist:Aleksey Salazar, RT(R)(CT) CTDI: DLP: TrnscbDate/Time: 11/12/2021 (0033) [email or web address] Orig Print D/T: S: 11/12/2021 (0034) PAGE 4 Signed Report- CTA HEART W CN ART/[id number] 00:00:00 [facility] : 1950 Sex: F Name:AIMEE FLAHERTY [facility] Steve Chaidez : 1950 Age/S: 71 / F [address] [place] [address] Blvd Unit #: [id number] Loc: [place] [address] Phys: Ana Prado EARTH SCIENCE TECHNICIAN Acct: [id number] Dis Date: Status: DEP CLI PHONE #: [phone] Exam Date: 11/11/2021 1237 FAX #: [phone] Reason: EXAMS: CPT CODE: [id number] CTA HEART W CN ART/GRAFTS 63966 PROCEDURE INFORMATION: Exam: CTA Chest Without And With Contrast Exam date and time: 11/11/2021 11:47 AM Age: 71 years old Clinical indication: Other: Aortic stenosis TECHNIQUE: Imaging protocol: Computed tomographic angiography of the chest without and with contrast. 3D rendering (Not supervised by radiologist): MIP and/or 3D reconstructed images were created by the technologist. Radiation optimization: All CT scans at this facility use at least one of these dose optimization techniques: automated exposure control; mA and/or kV adjustment per patient size (includes targeted exams where dose is matched to clinical indication); or iterative reconstruction. Contrast material: ISOVUE 370; Contrast volume: 100 ml; Contrast route: INTRAVENOUS (IV); COMPARISON: No relevant prior studies available. FINDINGS: There is a large right pleural effusion and a small left pleural effusion. There is atelectasis at the right lower lobe with atelectasis involving the right middle lobe and upper lobe. There is no pulmonary mass appreciated. The left lung demonstrates mild atelectasis at the left lung base. The heart size appears normal. There is no significant atherosclerotic calcification to the ascending aorta. There is a 3 vessel arch configuration. The descending thoracic aorta. Normal. The pulmonary artery slightly enlarged without evidence of pulmonary embolism. There is no med iastinal adenopathy. There is no pericardial effusion. Limited evaluation of the upper abdomen demonstrate at least 2 enhancing masses within the left lobe of the liver worrisome for regenerating nodules or hepatocellular carcinoma. The liver has a cirrhotic appearance. There is enlargement of the spleen consistent with portal hypertension. There is evidence for varicosities at the level of the GE junction consistent with esophageal varices. IMPRESSION: Large right pleural effusion. Small left pleural effusion. Significant atelectasis at the right lung. No pericardial effusion. Findings consistent with liver cirrhosis likely hepatocellular carcinoma of the left lobe of the liver with portal hypertension and gastroesophageal varices. Significant mitral annular calcification. Mild calcification to the aortic valve. Significant calcification to the left ventricular outflow tract PAGE 1 Signed Report (CONTINUED) Name: AIMEE FLAHERTY [facility] [place] : 1950 Age/S: 71 / F [address] [place] [address] Blvd Unit #: [id number] Loc: [place] [address] Phys: Ana Prado [facility] Acct: [id number] Dis Date: Status: DEP CLI PHONE #: [phone] Exam Date: 11/11/2021 1237 FAX #: [phone] Reason: EXAMS: CPT CODE: [id number] CTA HEART W CN ART/GRAFTS 54104 (Continued) from the thick mitral annular calcification. PROCEDURE INFORMATION: Exam: CTA Heart and Coronary Arteries Without and With IV Contrast Exam date and time: 11/11/2021 11:47 AM Age: 71 years old Clinical indication: Other: Aortic stenosis TECHNIQUE: Imaging protocol: CTA heart, coronary arteries and bypass grafts (when present) without and with IV contrast material including 3D image postprocessing (including evaluation of cardiac structure and morphology, assessment of cardiac function, and evaluation of venous structures, if performed). 3D rendering (Not supervised by radiologist): MIP and/or 3D reconstructed images were created by the technologist. Radiation optimization: All CT scans at this facility use at least one of these dose optimization techniques: automated exposure control; mA and/or kV adjustment per patient size (includes targeted exams where dose is matched to clinical indication); or iterative reconstruction. Contrast material: ISOVUE 370; Contrast volume: 100 ml; Contrast route: INTRAVENOUS (IV); Other technique: 3D renderinD reconstructed images were created, reviewed and saved. COMPARISON: No relevant prior studies available. FINDINGS: Non-contrast images demonstrate significant mitral annular calcification. There is enlargement of the left atrium measuring 5.4 cm in AP dimension. The left atrial appendage is slightly diminutive but fills normally with contrast. No obvious filling defects are appreciated. There is severe calcification appreciated to the aortic valve. Calcium scorewas estimated at 1519 units within the aortic valve. There is minimal atherosclerotic calcification appreciated to the ascending aorta. CARDIAC: Left main coronary artery (LMCA): The left main coronaryartery is a medium vessel and bifurcates in LAD and LCX. It is patent with no evidence of significant plaque or stenosis. Left anterior descending artery (LAD): The left anterior descending artery is patent with nonobstructive calcified plaque within the proximal LAD. The mid and distal LAD are difficult to evaluate. The LAD supplies 1 patent diagonal branch. Left circumflex artery (LCx): The left circumflex artery is patent PAGE 2 Signed Report (CONTINUED) Name: AIMEE FLAHERTY [facility] [place] : 1950 Age/S: 71 / F [address] [place] [address] Blvd Unit #: [id number] Loc: [place] [address] Phys: Ana Prado EARTH SCIENCE TECHNICIAN Acct: [id number] Dis Date: Status: DEP CLI PHONE #: [phone] Exam Date: 11/11/2021 1237 FAX #: [phone] Reason: EXAMS: CPT CODE: [id number] CTA HEART W CN ART/GRAFTS 30985 (Continued) with nonobstructive calcified plaque within the proximal circumflex. The circumflex supplies a large obtuse marginal branch plaque or stenosis. It gives off 2 patent obtuse marginal branches. Right coronary artery (RCA): The right coronary artery is patent proximally with mild to moderate plaque or stenosis. The mid and distal right coronary artery is difficult to evaluate due to motion. . Pericardium: The pericardial contour is preserved with no effusion, thickening or calcifications. Lungs: There are moderate bilateral pleural effusions with bibasilar atelectasis. Mediastinal space: Limited views of the mediastinal space is unremarkable. Within the upper abdomen there is a 3 cm enhancingperipheral density involving the left lobe of the liver. There is of unclear significance. Correlatewith other studies. IMPRESSION: Significant annular calcification of the mitral valve. Mild enlargement of left atrium. Patent coronary vessels proximally with minimal calcified plaque. Mid and distal coronary vessels are difficult to evaluate. Mild aortic valvular calcification. Large right pleural effusion small left pleural effusion and bibasilar atelectasis. PROCEDURE INFORMATION: Exam: CTA Abdomen and Pelvis Without And With Contrast Exam date and time: 11/11/2021 11:47 AM Age: 71 years old Clinical indication: Other: Aortic stenosis TECHNIQUE: Imaging protocol: Computed tomographic angiography of the abdomen and pelvis without and with contrast. 3D rendering (Not supervised by radiologist): MIP and/or 3D reconstructed images were created by the technologist. Radiation optimization: All CT scans at this facility use at least one of these dose optimization techniques:automated exposure control; mA and/or kV adjustment per patient size (includes targeted exams where dose is matched to clinical indication); or iterative reconstruction. Contrast material: ISOVUE 370; Contrast volume: 100 ml; Contrast route: INTRAVENOUS (IV); COMPARISON: No relevant prior studies available. FINDINGS: PAGE 3 Signed Report (CONTINUED) Name: AIMEE FLAHERTY [facility] : 1950 Age/S: 71 / F [address] [place] [address] Blvd Unit #: [id number] Loc: [place] [address] Phys: Kam Prado Acct: [id number] Dis Date: Status: DEP CLI PHONE #: [phone] Exam Date: 11/11/2021 1237 FAX #: [phone] Reason: EXAMS: CPT CODE: [id number] CTA HEART W CN ART/GRAFTS 10051 (Continued) There is a large right pleural effusion and a small moderate left pleural effusion. There are gastroesophageal varices with a cirrhotic liver and enlarged spleen consistent with portal hypertension. Within the left lobe liver there are 2 enhancing exophytic liver lesions thought to represent regeneratingnodules or pelvis cell carcinoma. There are stones within a contracted gallbladder. There is no ascites. Pancreas appears normal. The portal vein is patent. There is a right renal cyst without hydronephrosis. The left kidney appears normal. Both adrenal glands are normal. There is no periportal adenopathy. There is no retroperitoneal adenopathy. The unopacified small and large bowel appear normal without obstruction. Within the pelvis there is no free fluid. There is no adenopathy. Are degenerativechanges of the lumbar spine without significant vertebral body height loss. IMPRESSION: Patient with cirrhotic liver and findings of portal hypertension with gastroesophageal varices. 2 enhancing masses (greater than 3 cm) within the liver most consistent with hepatocellular carcinoma. There is no ascites. There is gallstone within the gallbladder. The abdominal aorta appears patent. Both common iliac arteries are patent. Both external iliac arteries are patent. There is a large right pleural effusion in a small to moderate left pleural effusion. at 0033 Reported and signed by: Maximus Bowden M.D CC: Ana Prado; Fabien White MD Technologist:Aleksey Salazar, RT(R)(CT) CTDI: DLP: Trnscb Date/Time: 11/12/2021 (32) [email or web address] Orig Print D/T: S: 11/12/2021 (32) PAGE 4 Signed Report- CTA ABD PEL W [id number] 00:00:00 [facility] : 1950 Sex: F Name:AIMEE FLAHERTY [facility] : 1950 Age/S: 71 / F [address] [place] [address] Bl Unit #: [id number] Loc: [place] [address] Phys: Ana Prado Acct: [id number] Dis Date: Status: DEP CLI PHONE#: [phone] Exam Date: 11/11/2021 1237 FAX #: [phone] Reason: AORTIC STENOSIS EXAMS: CPT CODE: [id number] CTA ABD PEL W CONT 32407 PROCEDURE INFORMATION: Exam: CTA Chest Without And With Contrast Exam date and time: 11/11/2021 11:47 AM Age: 71 years old Clinical indication: Other: Aortic stenosis TECHNIQUE: Imaging protocol: Computed tomographic angiography of the chest without and with contrast. 3D rendering (Not supervised by radiologist): MIP and/or 3D reconstructed images were created bythe technologist. Radiation optimization: All CT scans at this facility use at least one of these dose optimization techniques: automated exposure control; mA and/or kV adjustment per patient size (includes targeted exams where dose is matched to clinical indication); or iterative reconstruction. Contrast material: ISOVUE 370; Contrast volume: 100 ml; Contrast route: INTRAVENOUS (IV); COMPARISON: No relevant prior studies available. FINDINGS: There is a large right pleural effusion and a small leftpleural effusion. There is atelectasis at the right lower lobe with atelectasis involving the right middle lobe and upper lobe. There is no pulmonary mass appreciated. The left lung demonstrates mild a telectasis at the left lung base. The heart size appears normal. There is no significant atherosclerotic calcification to the ascending aorta. There is a 3 vessel arch configuration. The descending thoracic aorta. Normal. The pulmonary artery slightly enlarged without evidence of pulmonary embolism. There is no mediastinal adenopathy. There is no pericardial effusion. Limited evaluation of the upper abdomen demonstrate at least 2 enhancing masses within the left lobe of the liver worrisome for regenerating nodules or hepatocellular carcinoma. The liver has a cirrhotic appearance. There is enlargement of the spleen consistent with portal hypertension. There is evidence for varicosities at the levelof the GE junction consistent with esophageal varices. IMPRESSION: Large right pleural effusion. Small left pleural effusion. Significant atelectasis at the right lung. No pericardial effusion. Findings consistent with liver cirrhosis likely hepatocellular carcinoma of the left lobe of the liver with portal hypertension and gastroesophageal varices. Significant mitral annular calcification. Mild calcification to the aortic valve. Significant calcification to the left ventricular outflow tract PAGE 1 Signed Report (CONTINUED) Name: AIMEE FLAHERTY [facility] : 1950 Age/S: 71 / F [address] [place] [address] Unit #: [id number] Loc: [place] [address] Phys: Ana Prado EARTH SCIENCE TECHNICIAN Acct: [id number] Date: Status: DEP CLI PHONE #: [phone] Exam Date: 11/11/2021 [facility] FAX #: [phone] Reason: AORTIC STENOSIS EXAMS: CPT CODE: [id number] CTA ABD PEL W CONT 31950 (Continued) from the thick mitral annular calcification. PROCEDURE INFORMATION: Exam: CTA Heart and Coronary Arteries Without and With IV Contrast Exam date and time: 11/11/2021 11:47 AM Age: 71 years old Clinical indication: Other: Aortic stenosis TECHNIQUE: Imaging protocol: CTA heart, coronary arteries and bypass grafts (when present) without and with IV contrast material including 3D image postprocessing (including evaluation of cardiac structure and morphology, assessment of cardiac function, and evaluation of venous structures, if performed). 3D rendering (Not supervised by radiologist): MIP and/or 3D reconstructed images were created by the technologist. Radiation optimization: All CT scans at this facility use at least one of these dose optimization techniques: automated exposure control; mA and/or kV adjustment per patient size (includes targeted exams where dose is matched to clinical indication); or iterative reconstruction. Contrast material: ISOVUE 370; Contrast volume: 100 ml; Contrastroute: INTRAVENOUS (IV); Other technique: 3D renderinD reconstructed images were created, reviewed and saved. COMPARISON: No relevant prior studies available. FINDINGS: Non-contrast images demonstrate significant mitral annular calcification. There is enlargement of the left atrium measuring 5.4 cm in AP dimension. The left atrial appendage is slightly diminutive but fills normally with contrast. No obvious filling defects are appreciated. There is severe calcification appreciated to the aorticvalve. Calcium score was estimated at 1519 units within the aortic valve. There is minimal atherosclerotic calcification appreciated to the ascending aorta. CARDIAC: Left main coronary artery (LMCA): The left main coronary artery is a medium vessel and bifurcates in LAD and LCX. It is patent with no evidence of significant plaque or stenosis. Left anterior descending artery (LAD): The left anterior descending artery is patent with nonobstructive calcified plaque within the proximal LAD. The mid and distal LAD are difficult to evaluate. The LAD supplies 1 patent diagonal branch. Left circumflex artery (LCx): The left circumflex artery is patent PAGE 2 Signed Report (CONTINUED) Name: AIMEE FLAHERTY [facility] : 1950 Age/S: 71 / F [address] [place] [address] Unit #: [id number] Loc: [place] [address] Phys: Ana Prado [facility] Acct: [id number] Dis Date: Status: DEP CLI PHONE #: [phone] Date: 11/11/20211236 FAX #: [phone] Reason: AORTIC STENOSIS EXAMS: CPT CODE: [id number] CTA ABD PEL W CONT 84165 (Continued) with nonobstructive calcified plaque within the proximal circumflex. The circumflex supplies a large obtuse marginal branch plaque or stenosis. It gives off 2 patent obtuse marginal branches. Right coronary artery (RCA): The right coronary artery is patent proximally with mild to moderate plaque or stenosis. The mid and distal right coronary artery is difficult to ángel luate due to motion. . Pericardium: The pericardial contour is preserved with no effusion, thickening or calcifications. Lungs: There are moderate bilateral pleural effusions with bibasilar atelectasis. Mediastinal space: Limited views of the mediastinal space is unremarkable. Within the upper abdomenthere is a 3 cm enhancing peripheral density involving the left lobe of the liver. There is of unclear significance. Correlate with other studies. IMPRESSION: Significant annular calcification of the mitral valve. Mild enlargement of left atrium. Patent coronary vessels proximally with minimal calcified plaque. Mid and distal coronary vessels are difficult to evaluate. Mild aortic valvular calcification. Large right pleural effusion small left pleural effusion and bibasilar atelectasis. PROCEDURE INFORMATION: Exam: CTA Abdomen and Pelvis Without And With Contrast Exam date and time: 11/11/2021 11:47 AM Age: 71 years old Clinical indication: Other: Aortic stenosis TECHNIQUE: Imaging protocol: Computed tomographic angiography of the abdomen and pelvis without and with contrast. 3D rendering (Not supervised by radiologist): MIP and/or 3D reconstructed images were created by the technologist. Radiation optimization: All CT scans at this facility use at least one of these dose optimization techniques: automated exposure control; mA and/or kV adjustment per patient size (includes targeted exams where dose is matched to clinical indication); or iterative reconstruction. Contrast material: ISOVUE 370; Contrast volume: 100 ml; Contrast route: INTRAVENOUS (IV); COMPARISON: Norelevant prior studies available. FINDINGS: PAGE 3 Signed Report (CONTINUED) Name: [facility] 1950 Age/S: 71 / F [address] [place] [address] Blvd Unit #: [id number] Loc: [id number] Phys: Ana Prado Acct: [id number] Dis Date: Status: DEP CLI PHONE #: [phone] Exam Date: 11/11/2021 1237 FAX #: [phone] Reason: AORTIC STENOSIS EXAMS: CPT CODE: [id number] CTA ABD PEL W CONT 98675 (Continued) There is a large right pleural effusion and a small moderate left pleural effusion. There are gastroesophageal varices with a cirrhotic liver and enlarged spleen consistent with portal hypertension. Within the left lobe liver there are 2 enhancing exophytic liver lesions thought to represent regenerating nodules or pelvis cell carcinoma. There are stones within a contracted gallbladder. There is no ascites. Pancreas appears normal. The portal vein is patent. There tunde right renal cyst without hydronephrosis. The left kidney appears normal. Both adrenal glands are normal. There is no periportal adenopathy. There is no retroperitoneal adenopathy. The unopacified small and large bowel appear normal without obstruction. Within the pelvis there is no free fluid. Thereis no adenopathy. Are degenerative changes of the lumbar spine without significant vertebral body height loss. IMPRESSION: Patient with cirrhotic liver and findings of portal hypertension with gastroesophageal varices. 2 enhancing masses (greater than 3 cm) within the liver most consistent with hepatocellular carcinoma. There is no ascites. There is gallstone within the gallbladder. The abdominal aorta appears patent. Both common iliac arteries are patent. Both external iliac arteries are patent. There is a large right pleural effusion in a small to moderate left pleural effusion. at 0033 Reported and signed by: Maximus Bowden M.D CC: Ana White MD Technologist:Aleksey Salazar, RT(R)(CT) CTDI: DLP: Trnscb Date/Time: 11/12/2021 (0033) [email or web address] Orig Print D/T: S: 11/12/2021 (0034) PAGE 4 SignedReportCOVID 19 Asymptomatic IH [id number] 13:34:00 Test Item Value Reference Range Interpretation Comments COVID 19 Asymptomatic Negative Negative A nega tive result is IH AG (test code = presumpti ve and should COVNONPUIAG) be confirmedwit h an FDA authorized mole cular assay, if neces dena forpatient jordan gement.A positive result does not rule out co-inf ections withother patho gens.This test detects francis th viable (live) and non-viable,SARS -CoV, and SARS-CoV-2. Flor t performance dep ends on theamount of vi wai (antigen) in th e sample.This flor t has not been FDA cleare d or approved; the t est hasbeen authori zed by FDA under an Em ergency Use Authorizati on(EUA) for use by labo ratories certified under the CLIA thatmeet the requirements to perform moderate, high or waivedcomplexit y tests. 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 EXAMS: CPT CODE: [id number] DUP EXTRACRANIAL NAEEM [id number] PROCEDURE INFORMATION: Exam: US Duplex Bilateral Extr acranial Arteries, Carotid Arteries Exam date and time: 11/11/2021 1:19 PM Age: 71 years old Clinical indication: Nonrheumatic aortic (valve) stenosis; Additional info: Severe aortic stenosis. TECHNIQUE:Imaging protocol: Real-time Duplex ultrasound scan of the bilateral carotid and vertebral arteries combining long scale, color Doppler and spectral waveform analysis. Bilateral exam. Exam focused on the carotid arteries. COMPARISON: CT HEART W CN ART/GRAFTS 11/11/2021 11:47 AM FINDINGS: Right common carotid artery: Plaque formation. No occlusion or stenosis. Waveforms are normal. Right internal carotid artery: Plaque formation. No occlusion or stenosis. Waveforms are normal. Right ICA/CCA ratio: Within normal limits. Right external carotid artery: No stenosis in the origin. Right vertebral artery: Unremarkable. Antegrade flow. Left common carotid artery: Plaque formation. No occlusion or stenosis. Waveforms are normal. Left internal carotid artery: Plaque formation. No occlusion or stenosis. Waveforms are normal. Left ICA/CCA ratio: Within normal limits. Left external carotid artery: No stenosis in the origin. Left vertebral artery: Unremarkable. Antegrade flow. IMPRESSION: No carotid arterial stenosis. REFERENCES: SRU CRITERIA. The degree of internal carotid artery stenosis is based on criteria defined by the Society of Radiologists in Ultrasound (SRU). Normal is no stenosis. Mild is less than 50% stenosis. Moderate is 50-69% stenosis. Severe is greater than 69% stenosis to near occlusion. Near occlusion is a markedly narrowed lumen. Total occlusion is no detectable patent lumen. at 1543 Reported and signed by: Talat [place] M.D. PAGE 1 Signed Report (CONTINUED) Name: AIMEE FLAHERTY [facility] : 1950 Age/S: 71 / F [address] [place] [address] Blvd Unit #: [id number] Loc: [place] [address] Phys: Ana Prado Acct: [id number] Dis Date: Status: REG CLI PHONE #: [phone] Exam Date: 11/11/2021 1517FAX #: [phone] Reason: SEVERE AORTIC STENOSIS. EXAMS: CPT CODE: [id number] DUP EXTRACRANIAL [id number] (Continued) CC: Ana White MD Technologist: Kym Fan RDMS(AB) Trnscb Date/Time: 11/11/2021 (1337) Samia Orig Print D/T: S: 11/11/2021 (2096) Probe: PAGE 2 SignedReport
--- NOTE | 2022-04-25 17:39 | RAD REPORT ---
EXAM DESCRIPTION: RAD - Chest Single View - 04/25/2022 5:32 pm CLINICAL HISTORY: COUGH Chest pain. COMPARISON: Chest Pa And Lat (2 Views) dated 09/17/2021; Chest Single View dated 09/09/2020; Chest Sing le View dated 02/07/2020; Chest Single View dated 06/30/2017 FINDINGS: Portable technique limits examination quality. Moderate bilateral pleural effusions seen with atelectasis in both bases. Heart size is likely mildly . No displaced fractures.
[2022-04-25] MEDS ORDERED: NA CHLORIDE 0.9% 500 ML ONE (18:09)
[2022-04-25] MEDS ORDERED: NA CHLORIDE 0.9% 1,000 ML ONE (18:09)
[2022-04-25] MEDS ORDERED: CEFTRIAXONE 1000 MG/VIAL ONE (18:09)
[2022-04-25] MEDS ORDERED: PANTOPRAZOLE 40 MG INJ ONE (19:11)
[2022-04-25] MEDS ORDERED: DIGOXIN 0.25 MG/ML AMP ONE (19:11)
[2022-04-25 19:16] LABS: Hematocrit 32.5 % (36.0-45.0); Lymphocytes % 25.4 % (15.3-44.8); MCV 77.3 fL (80-100); MPV 7.9 fL (7.6-11.3)
[2022-04-25 19:17] LABS: Protime INR 3.23
[2022-04-25 19:23] LABS: SARS-CoV-2 Antigen Rapid Res Negative (Negative)
--- NOTE | 2022-04-25 19:39 | EDPHYS ---
Physician Documentation [facility] Name: Aimee Flaherty Age: 71 yrs Sex: Female : 1950 Arrival Date: 04/25/2022 Time: 16:17 Bed 28 Private MD: Deanne Boyd ED Physician Efraín Figueroa HPI: 04/25 18:16 This 71 yrs old Female presents to ER via Wheelchair with complaints of jayda Decreased Appetite, Weakness. 18:16 The patient presents to the emergency department with weakness of the. jayda Historical: - Allergies: 17:47 No Known Allergies; ph - Home Meds: 18:00 carvedilol Oral [Active]; Lovastatin Oral [Active]; em6 - PMHx: 17:47 Cirrhosis; Hypertension; ph - Immunization history:: Adult Immunizations up to date. - Social history:: Smoking status: Patient denies any tobacco usage or history of. ROS: 18:19 Constitutional: Negative for fever, chills, and weight loss, Eyes: Negative for injury, jayda pain, redness, and discharge, ENT: Negative for injury, pain, and discharge, Neck: Negative for injury, pain, and swelling, Cardiovascular: Negative for chest pain, palpitations, and edema, Back: Negative for injury and pain, : Negative for injury, bleeding, discharge, and swelling, MS/Extremity: Negative for injury and deformity, Neuro: Negative for headache, weakness, numbness, tingling, and seizure, Psych: Negative for depression, anxiety, suicide ideation, homicidal ideation, and hallucinations, Allergy/Immunology: Negative for hives, rash, and allergies, Endocrine: Negative for neck swelling, polydipsia, polyuria, polyphagia, and marked weight changes, Hematologic/Lymphatic: Negative for swollen nodes, abnormal bleeding, and unusual bruising. 18:19 Respiratory: Positive for cough, shortness of breath, at rest. 18:19 Abdomen/GI: Positive for nausea and vomiting, anorexia. 18:19 Skin: Positive for jaundice, pallor. 18:19 Neuro: Positive for weakness. Exam: 18:19 Constitutional: This is a well developed, well nourished patient who is awake, alert, jayda and in no acute distress. Head/Face: Normocephalic, atraumatic. Eyes: Pupils equal round and reactive to light, extra-ocular motions intact. Lids and lashes normal. Conjunctiva and sclera are non-icteric and not injected. Cornea within normal limits. Periorbital areas with no swelling, redness, or edema. ENT: Nares patent. No nasal discharge, no septal abnormalities noted. Tympanic membranes are normal and external auditory canals are clear. Oropharynx with no redness, swelling, or masses, exudates, or evidence of obstruction, uvula midline. Mucous membranes moist. Neck: Trachea midline, no thyromegaly or masses palpated, and no cervical lymphadenopathy. Supple, full range of motion without nuchal rigidity, or vertebral point tenderness. No Meningismus. Chest/axilla: Normal chest wall appearance and motion. Nontender with no deformity. No lesions are appreciated. Cardiovascular: Regular rate and rhythm with a normal S1 and S2. No gallops, murmurs, or rubs. Normal PMI, no JVD. No pulse deficits. Abdomen/GI: Soft, non-tender, with normal bowel sounds. No distension or tympany. No guarding or rebound. No evidence of tenderness throughout. Back: No spinal tenderness. No costovertebral tenderness. Full range of motion. Female : Normal external genitalia. MS/ Extremity: Pulses equal, no cyanosis. Neurovascular intact. Full, normal range of motion. Neuro: Awake and alert, GCS 15, oriented to person, place, time, and situation. Cranial nerves II-XII grossly intact. Motor strength 5/5 in all extremities. Sensory grossly intact. Cerebellar exam normal. Normal gait. Psych: Awake, alert, with orientation to person, place and time. Behavior, mood, and affect are within normal limits. 18:19 Respiratory: the patient does not display signs of respiratory distress, Respirations: no acute changes, labored breathing, Breath sounds: decreased breath sounds, that are mild, rhonchi, are not appreciated, stridor, is not appreciated, Respiratory rate: 22 18:19 Musculoskeletal/extremity: DVT Exam: No signs of deep vein thrombosis. no pain, no swelling, no tenderness, negative Homans' sign noted on exam, no appreciated bluish discoloration, no erythema, no increased warmth. 19:42 ECG was reviewed by the Attending Physician. jayda Vital Signs: 17:49 BP 101 / 77; Pulse 57; Resp 20; Temp 98.0; Pulse Ox 100% ; Weight 72.57 kg; Height 5 ph ft. 4 in. (162.56 cm); 19:00 BP 98 / 45; Pulse 65; Resp 22; Pulse Ox 98% ; em6 19:45 BP 99 / 84; Pulse 104; Resp 22; Pulse Ox 100% on R/A; em6 20:45 BP 99 / 84; Pulse 104; Resp 24; Pulse Ox 100% on 2 lpm NC; em6 21:30 BP 101 / 75; Pulse 84; Resp 24; Pulse Ox 99% on 2 lpm NC; em6 22:34 BP 98 / 68; Pulse 84; Resp 24; Pulse Ox 99% on 2 lpm NC; em6 17:49 Body Mass Index 27.46 (72.57 kg, 162.56 cm) ph 19:00 notified provider of vital signs em6 NIH Stroke Scale Scores: 18:00 NIHSS Score: 0 em6 Procedures: 20:13 Peripheral line: by aseptic technique a peripheral line was placed in the left external jayda jugular vein. MDM: 18:05 Patient medically screened. [facility] 18:20 Differential diagnosis: Anemia CHF exacerbation, Chronic Obstructive Pulmonary Disease jayda Nonspecific abd pain, gastritis, pancreatitis, viral gastroenteritis, gastroenteritis, pneumonia, pulmonary edema. Antibiotic administration: rocephin. Differential Diagnosis altered mental status, sepsis. The patient's Wells Deep Vein Thrombosis Score was calculated as follows: Total Score: 0-2 Pts- Low Risk. The patient's pulmonary embolism risk score was calculated as follows: Total Score: 0-2 points. This patient was found to be at low risk for a pulmonary embolism by using the Well's assessment criteria. Immunization status: Pneumococcal vaccine: within last 5 years. Influenza vaccine: Data reviewed: vital signs, nurses notes, lab test result(s), EKG, radiologic studies, plain films. Data interpreted: awake overnight monitor: rate is 60 beats/min, rhythm is regular, Pulse oximetry: on room air is 100 %. Interpretation: normal. Test interpretation: by ED physician or midlevel provider: ECG, plain radiologic studies. 04/25 16:24 Order name: Basic Metabolic Panel; Complete Time: 22:00 jayda 04/25 22:15 Interpretation: Normal except: CO2 19; ANION GAP 16.0; BUN 59; CRE 2.17; GFR 24. cp 04/25 16:24 Order name: CBC with Diff; Complete Time: 19:24 [facility] 04/25 21:59 Interpretation: Normal except: HGB 10.4; HCT 32.5; MCV 77.3; MCH 24.9; RDW 17.7; MN% cp 16.5. 04/25 16:24 Order name: LFT's; Complete Time: 22:00 [facility] 04/25 22:16 Interpretation: Normal except: AST 44; ALK 130; BILIT 1.5; BILID 0.8; ALB 2.8; GLOB cp 4.3; A/G 0.7. 04/25 16:24 Order name: Magnesium; Complete Time: 22:00 [facility] 04/25 16:24 Order name: NT PRO-BNP; Complete Time: 22:00 [facility] 04/25 22:15 Interpretation: Abnormal: NT PRO-BNP 6918. cp 04/25 16:24 Order name: PT-INR; Complete Time: 19:24 [facility] 04/25 16:24 Order name: Troponin HS; Complete Time: 22:00 [facility] 04/25 22:16 Interpretation: Abnormal: Troponin HS 173.6. cp 04/25 16:24 Order name: Lipase; Complete Time: 22:00 [facility] 04/25 16:24 Order name: SARS RAPID; Complete Time: 19:24 [facility] 04/25 16:24 Order name: Lactate w/ 2H reflex if indic.; Complete Time: 20:14 [facility] 04/25 18:15 Order name: AMMONIA; Complete Time: 20:44 [facility] 04/25 18:16 Order name: Type And Screen; Complete Time: 21:12 [facility] 04/25 20:43 Order name: Urine Dipstick-Ancillary; Complete Time: 20:44 [facility] 04/25 20:53 Order name: Urine Culture [facility] 04/25 16:24 Order name: XRAY Chest (1 view); Complete Time: 19:24 [facility] 04/25 16:24 Order name: EKG; Complete Time: 16:25 [facility] 04/25 16:24 Order name: Cardiac monitoring; Complete Time: 19:35 [facility] 04/25 16:24 Order name: EKG - Nurse/Tech; Complete Time: 19:35 [facility] 04/25 16:24 Order name: IV Saline Lock; Complete Time: 19:35 [facility] 04/25 16:24 Order name: Labs collected and sent; Complete Time: 19:35 [facility] 04/25 16:24 Order name: O2 Per Protocol; Complete Time: 19:35 [facility] 04/25 16:24 Order name: O2 Sat Monitoring; Complete Time: 19:35 [facility] 04/25 18:16 Order name: IV Saline Lock - Large Bore; Complete Time: 19:35 [facility] 04/25 20:15 Order name: Vital; Complete Time: 20:39 [facility] 04/25 20:15 Order name: Oxygen; Complete Time: 20:23 [facility] EC:42 Rate is 116 beats/min. Rhythm is irregularly irregular. QRS [place] is Normal. QRS jayda interval is normal. QT interval is normal. No Q waves. T waves are Normal. No ST changes noted. Clinical impression: Abnormal EKG without significant change, Atrial Fibrillation, and No evidence of ischemia. Interpreted by me. Reviewed by me. Administered Medications: 19:08 Drug: NS 0.9% 500 ml Route: IV; Rate: bolus; Site: left hand; em6 20:30 Follow up: Response: No adverse reaction; IV Status: Completed infusion; IV Intake: em6 500ml 19:08 Drug: Rocephin (cefTRIAXone) 1 grams Route: IV; Rate: bolus; Site: left hand; em6 20:00 Follow up: Response: No adverse reaction; IV Status: Completed infusion; IV Intake: [id number] 19:19 Drug: ProTONIX (pantoprazole) 40 mg Route: IVP; Site: left hand; em6 20:00 Follow up: Response: No adverse reaction em6 19:19 Drug: Digoxin 0.5 mg Route: IVP; Site: left hand; em6 20:00 Follow up: Response: No adverse reaction em6 19:52 Drug: Sotalol 80 mg Route: PO; em6 20:30 Follow up: Response: No adverse reaction em6 21:32 Drug: Meropenem 1 grams Route: IV; Rate: per protocol; Site: left jugular; em6 22:05 Follow up: Response: No adverse reaction; IV Status: Completed infusion; IV Intake: em6 100ml 22:35 Not Given (Physician Discretion): Lopressor (metoprolol) 2.5 mg IVP once; Hold for SBP em6 <100 or HR <60. 22:35 Not Given (Physician Discretion): Lopressor (metoprolol) 2.5 mg IVP once; Hold for SBP em6 <100 or HR <60. 22:36 Not Given (Physician Discretion): NS 0.9% 1000 ml IV at 125 ml/hr continuous em6 Disposition Summary: 04/25/22 20:44 Transfer Ordered Transfer Location: [facility] jayda Reason: Higher level of care jayda Condition: Fair(04/25/22 20:44) jayda Problem: new(04/25/22 20:44) jayda Symptoms: have improved(04/25/22 20:44) jayda Accepting Physician: to [facility](04/25/22 22:58) em6 Diagnosis - Pleural effusion in other conditions classified elsewhere - bilateral(04/25/22 jayda 20:44) - Persistent atrial fibrillation - with RVR(04/25/22 20:44) jayda - Weakness(04/25/22 20:44) 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 Level of Consciousness (LOC) - 0(Alert) 1b. Level of Consciousness (LOC) (Month \T\ Age) - 0(Both) 1c. LOC Commands (Open \T\ Closes Eyes/Business Lawyer) - 0(Both) 2. Best Gaze (Lateral Gaze Paresis) - 0(Normal) 3. Visual Field Loss - 0(No visual loss) 4. Facial Palsy - 0(Normal) 5a. Left Arm: Motor (10-second hold) - 0(No drift) 5b. Right Arm: Motor (10-second hold) - 0(No drift) 6a. Left Leg: Motor (5-second hold - always test supine) - 0(No drift) 6b. Right Leg: Motor (5-second hold - always test supine) - 0(No drift) 7. Limb Ataxia (finger/nose \T\ heel/madison - test with eyes open) - 0(Absent) 8. Sensory Loss (pinprick arms/legs/face) - 0(Normal) 9. Best Language: Aphasia (description/naming/reading) - 0(No aphasia) 10. Dysarthria (speech clarity - read or repeat words) - 0(Normal) 11. Extinction and Inattention (visual/tactile/auditory/spatial/personal) - 0(No abnormality) Initials: em6 Signatures: Dispatcher [employer] EDMS Ronda Serrano RN RN Efraín Perry MD MD cha Attema, Lee, INTELLECTUAL PROPERTY COUNSEL-C INTELLECTUAL PROPERTY COUNSEL-Cla1 Alida Christianson RN RN Efraín Garvin PA PA Cindi Yin RN RN em6 Corrections: (The following items were deleted from the chart) 19:44 19:39 Telemetry/MedSurg (Inpatient) jayda 19:44 19:39 jayda 20:41 19:39 Inpatient Admission jayda jayda 20:41 19:39 SudheerKirill jayda jayda 20:41 19:39 Fair jayda jayda 20:41 19:39 new jayda jayda 20:41 19:39 have improved jayda jayda 20:41 19:39 Standard jayda jayda 20:41 19:39 Persistent atrial fibrillation - with rvr jayda jayda 20:41 19:39 Nonrheumatic aortic (valve) stenosis - severe jayda jayda 20:41 19:39 Pleural effusion in other conditions classified elsewhere - bilateral jayda jayda 20:41 19:39 Weakness jayda jayda 20:41 19:39 Alcoholic cirrhosis of liver without ascites jayda jayda 20:41 19:39 shelter (current) use of anticoagulants jayda jayda 20:41 19:41 Primary pulmonary hypertension jayda jayda 20:41 19:44 [facility] ER HOLD mw jayda 20:41 19:44 ERHOLD- jayda 20:53 20:44 to [facility] jayda jayda 22:58 20:53 to [facility] jayda em6
--- NOTE | 2022-04-25 19:39 | ER ---
Nurse's Notes [facility] Name: Aimee Flaherty Age: 71 yrs Sex: Female : 1950 Arrival Date: 04/25/2022 Time: 16:17 Bed 28 Private MD: Deanne Boyd Diagnosis: Pleural effusion in other conditions classified elsewhere-bilateral;Persistent atrial fibrillation-with RVR;Weakness;penitentiary (current) use of anticoagulants;Nonrheumatic aortic (valve) stenosis-SEVERE;Primary pulmonary hypertension;Alcoholic cirrhosis of liver without ascites;UTI/ Urinary tract infection, site not specified Presentation: 04/25 17:49 Chief complaint: Patient states: Generalized weakness ,fatigue, decreased appetite x 2 ph days, denies fever, N/V/D. Coronavirus screen: Vaccine status: Patient reports receiving the 2nd dose of the covid vaccine. Ebola Screen: No symptoms or risks identified at this time. No acute neurological deficit is noted. Pre-hospital glucose is not applicable to this patient. Initial Sepsis Screen: Does the patient meet any 2 criteria? No. Patient's initial sepsis screen is negative. Does the patient have a suspected source of infection? No. Patient's initial sepsis screen is negative. Risk Assessment: Do you want to hurt yourself or someone else? Patient reports no desire to harm self or others. 17:49 Acuity: TISH 3 ph 17:49 Method Of Arrival: Wheelchair 20:00 Onset of symptoms was April 23, 2022. em6 Stroke Activation: Symptom onset > 6 hours Physician: Stroke Attending; Name: ; Notified At: ; Arrived At: Physician: Chief Stroke Resident; Name: ; Notified At: ; Arrived At: Physician: Stroke Resident; Name: ; Notified At: ; Arrived At: Physician: ED Attending; Name: ; Notified At: ; Arrived At: Physician: ED Resident; Name: ; Notified At: ; Arrived At: Historical: - Allergies: 17:47 No Known Allergies; ph - Home Meds: 18:00 carvedilol Oral [Active]; Lovastatin Oral [Active]; em6 - PMHx: 17:47 Cirrhosis; Hypertension; ph - Immunization history:: Adult Immunizations up to date. - Social history:: Smoking status: Patient denies any tobacco usage or history of. Screenin:00 Abuse screen: Denies threats or abuse. Nutritional screening: No deficits noted. em6 Tuberculosis screening: No symptoms or risk factors identified. 20:00 Fall Risk IV access (20 points). Ambulatory Aid- None/Bed Rest/Nurse Assist (0 pts). em6 Gait- Weak (10 pts.). Mental Status- Oriented to own ability (0 pts). Total Jennings Fall Scale indicates Low Risk Score (25-44 pts). Fall prevention measures have been instituted. Side Rails Up X 2 Placed close to Nursing Station Frequent Obs/Assesments occuring Family Present and informed to notify staff if they need to leave bedside As available Patient and Family Educated on Fall Prevention Program and strategies. Assessment: 18:00 VAN Scoring: Arm Drift: Patients demonstrates NO arm weakness. Patient is VAN Negative. em6 Visual Disturbance: No visual disturbance noted. Aphasia: No aphasia noted. Neglect: No neglect noted. The patient has not been NPO before screening. The patient is alert, and able to follow commands. The patient does not exhibit slurred or garbled speech. The patient is not exhibiting difficulty speaking. The patient does not exhibit difficulty understanding words. The patient is able to swallow own secretions with no drooling or need for suction. Patient tolerated one teaspoon of water. No drooling, immediate coughing, gurgling, or clearing of the throat was noted. The patient tolerated 90mL of water. No drooling, immediate coughing, gurgling, or clearing of the throat was noted. The patient passed the bedside swallow screening. Oral medications may be given as ordered. Contact Physician for further diet orders. Provider notified of bedside swallow screening results: Efraín Figueroa MD. General: Appears comfortable, Behavior is cooperative. Pain: Denies pain. Neuro: Level of Consciousness is awake, alert, obeys commands, Oriented to person, place, time, situation, Reports weakness. Cardiovascular: Heart tones present Patient's skin is warm and dry. Rhythm is atrial fibrillation Chest pain is denied. Respiratory: Airway is patent Respiratory effort is even, unlabored, Respiratory pattern is regular, symmetrical, Breath sounds are clear bilaterally. GI: Abdomen is non-distended, Abd is soft and non tender X 4 quads. : No signs and/or symptoms were reported regarding the genitourinary system. EENT: No signs and/or symptoms were reported regarding the EENT system. Derm: No signs and/or symptoms reported regarding the dermatologic system. Musculoskeletal: Circulation, motion, and sensation intact. Range of motion: intact in all extremities. 19:21 Reassessment: Patient and/or family updated on plan of care and expected duration. Pain em6 level reassessed. Patient is alert, oriented x 3, equal unlabored respirations, skin warm/dry/pink. notified provider of vital signs and tele monitor. no new orders. 20:00 Reassessment: No changes from previously documented assessment. Patient and/or family em6 updated on plan of care and expected duration. Pain level reassessed. Patient is alert, oriented x 3, equal unlabored respirations, skin warm/dry/pink. 21:00 Reassessment: No changes from previously documented assessment. Patient and/or family em6 updated on plan of care and expected duration. Pain level reassessed. Patient is alert, oriented x 3, equal unlabored respirations, skin warm/dry/pink. 22:00 Reassessment: Patient and/or family updated on plan of care and expected duration. Pain em6 level reassessed. Patient is alert, oriented x 3, equal unlabored respirations, skin warm/dry/pink. Patient states symptoms have improved. 22:20 Reassessment: gave report to laisha gracia. em6 Vital Signs: 17:49 BP 101 / 77; Pulse 57; Resp 20; Temp 98.0; Pulse Ox 100% ; Weight 72.57 kg; Height 5 ph ft. 4 in. (162.56 cm); 19:00 BP 98 / 45; Pulse 65; Resp 22; Pulse Ox 98% ; em6 19:45 BP 99 / 84; Pulse 104; Resp 22; Pulse Ox 100% on R/A; em6 20:45 BP 99 / 84; Pulse 104; Resp 24; Pulse Ox 100% on 2 lpm NC; em6 21:30 BP 101 / 75; Pulse 84; Resp 24; Pulse Ox 99% on 2 lpm NC; em6 22:34 BP 98 / 68; Pulse 84; Resp 24; Pulse Ox 99% on 2 lpm NC; em6 17:49 Body Mass Index 27.46 (72.57 kg, 162.56 cm) ph 19:00 notified provider of vital signs em6 NIH Stroke Scale Scores: 18:00 NIHSS Score: 0 em6 ED Course: 16:17 Patient arrived in ED. mr 16:18 Deanne Boyd MD is Private Physician. mr 16:20 Efraín Figueroa MD is Attending Physician. jayda 17:34 XRAY Chest (1 view) In Process Unspecified. EDMS 17:51 Triage completed. ph 17:51 Arm band placed on Patient placed in waiting room, Patient notified of wait time. ph 18:00 Placed in gown. Bed in low position. Call light in reach. Side rails up X2. Cardiac em6 monitor on. Pulse ox on. NIBP on. Warm blanket given. 18:00 Inserted saline lock: 22 gauge in left hand, using aseptic technique. Blood collected. em6 18:01 Cindi Landry, TAMMI is Primary Nurse. em6 19:36 Kirill Willard MD is Hospitalizing Provider. [facility] 19:55 Dr. Figueroa initiated call for transfer to [facility], spoke with Eliot. wm 20:00 Accessed 18 G left jugular. by dr Figueroa. Blood collected. dressing intact dry and em6 good blood return. 20:39 Vital cath inserted, using sterile technique, 16 Fr., by ak, balloon inflated, to em6 gravity drainage, urine specimen collected. 20:43 Pt accepted for transfer by Dr. Keke Matias \T\ 2030 per Eliot Garza. 21:25 Urine Culture Sent. em6 22:57 No provider procedures requiring assistance completed. Patient transferred, IV remains em6 in place. Administered Medications: 19:08 Drug: NS 0.9% 500 ml Route: IV; Rate: bolus; Site: left hand; em6 20:30 Follow up: Response: No adverse reaction; IV Status: Completed infusion; IV Intake: em6 500ml 19:08 Drug: Rocephin (cefTRIAXone) 1 grams Route: IV; Rate: bolus; Site: left hand; em6 20:00 Follow up: Response: No adverse reaction; IV Status: Completed infusion; IV Intake: [id number] 19:19 Drug: ProTONIX (pantoprazole) 40 mg Route: IVP; Site: left hand; em6 20:00 Follow up: Response: No adverse reaction em6 19:19 Drug: Digoxin 0.5 mg Route: IVP; Site: left hand; em6 20:00 Follow up: Response: No adverse reaction em6 19:52 Drug: Sotalol 80 mg Route: PO; em6 20:30 Follow up: Response: No adverse reaction em6 21:32 Drug: Meropenem 1 grams Route: IV; Rate: per protocol; Site: left jugular; em6 22:05 Follow up: Response: No adverse reaction; IV Status: Completed infusion; IV Intake: em6 100ml 22:35 Not Given (Physician Discretion): Lopressor (metoprolol) 2.5 mg IVP once; Hold for SBP em6 <100 or HR <60. 22:35 Not Given (Physician Discretion): Lopressor (metoprolol) 2.5 mg IVP once; Hold for SBP em6 <100 or HR <60. 22:36 Not Given (Physician Discretion): NS 0.9% 1000 ml IV at 125 ml/hr continuous em6 Medication: 22:57 VIS not applicable for this client. em6 Intake: 20:00 IV: 10ml; Total: 10ml. em6 20:30 IV: 500ml; Total: 510ml. em6 22:05 IV: 100ml; Total: 610ml. em6 Outcome: 19:39 Decision to Hospitalize by Provider. jayda 20:44 ER care complete, transfer ordered by MD. jayda 22:57 Transferred by ground EMS to [facility], Transfer form completed. em6 22:57 Condition: stable 22:57 Condition: stable 22:58 Instructed on the need for transfer, Demonstrated understanding of instructions. em6 22:58 Patient left the ED. em6 NIH Stroke Scale - NIH Stroke Score Date: 04/25/2022 Time: 18:00 Total Score = 0 1a. Level of Consciousness (LOC) - 0(Alert) 1b. Level of Consciousness (LOC) (Month \T\ Age) - 0(Both) 1c. LOC Commands (Open \T\ Closes Eyes/Air Brake Mechanic) - 0(Both) 2. Best Gaze (Lateral Gaze Paresis) - 0(Normal) 3. Visual Field Loss - 0(No visual loss) 4. Facial Palsy - 0(Normal) 5a. Left Arm: Motor (10-second hold) - 0(No drift) 5b. Right Arm: Motor (10-second hold) - 0(No drift) 6a. Left Leg: Motor (5-second hold - always test supine) - 0(No drift) 6b. Right Leg: Motor (5-second hold - always test supine) - 0(No drift) 7. Limb Ataxia (finger/nose \T\ heel/madison - test with eyes open) - 0(Absent) 8. Sensory Loss (pinprick arms/legs/face) - 0(Normal) 9. Best Language: Aphasia (description/naming/reading) - 0(No aphasia) 10. Dysarthria (speech clarity - read or repeat words) - 0(Normal) 11. Extinction and Inattention (visual/tactile/auditory/spatial/personal) - 0(No abnormality) Initials: em6 Signatures: Dispatcher [employer] EDEfraín Ferrari MD MD cha Rivera, Bibiana mr Alida Christianson RN RN [facility] CenterKarmen Erika, RN RN em6 Corrections: (The following items were deleted from the chart) 20:46 19:21 Reassessment: notified provider of vital signs and tele monitor. no new em6 orders em6
[2022-04-25] MEDS ORDERED: SOTALOL HCL 80 MG TAB ONE (19:46)
[2022-04-25] MEDS ORDERED: METOPROLOL TARTRATE 5 MG/5 ML INJ IV ONE (19:46)
[2022-04-25 20:43] LABS: Urine Blood Trace-intact (Negative); Urine Glucose Negative (Negative); Urine Protein Negative (Negative); Urine pH 5.5 (5.0-7.0)
[2022-04-25] MEDS ORDERED: Meropenem 1000 MG/VIAL IV ONE (21:27)
[2022-04-25] MEDS ORDERED: NA CHLORIDE 0.9% 100 ML IV ONE (21:27)
[2022-04-25 21:57] LABS: Albumin 2.8 g/dL (3.4-5.0); Bilirubin Direct 0.8 mg/dL (0-0.2); Bilirubin Total 1.5 mg/dL (0.2-1.0); Magnesium 2.1 mg/dL (1.8-2.4); Protein, Total 7.1 g/dL (6.4-8.2)
[2022-04-25 21:59] LABS: Troponin High Sensitivity 173.6 pg/mL (<58.9)
[2022-04-25 23:02] VITALS: TEMP 98
[2022-04-25 23:07] VITALS: O2SAT 99
[2022-04-25 23:08] VITALS: BP 98/68
--- NOTE | 2022-04-26 15:30 | EKG ---
Test Date: 2022-04-25 Test Time: 18:23:08 Head Insulation Board Saw Operator: MEASUREMENT RESULTS: Intervals: Rate: 136 MT: QRSD: 154 QT: 288 QTc: 433 [place]: P: MT: QRS: -34 T: 185 INTERPRETIVE STATEMENTS: Atrial fibrillation with rapid ventricular response with premature ventricular or aberrantly conducted complexes Left axis deviation Left bundle branch block Abnormal ECG Compared to ECG 09/17/2021 12:30:50 Ventricular premature complex(es) now present Left-axis deviation now present Left bundle-branch block now present Sinus rhythm no longer present Myocardial infarct finding no longer present Prolonged QT interval no longer present Electronically Signed On 04-26-22 15:27:54 [employer]LE [employer]ER [employer] by Fabien White
--- NOTE | 2022-04-26 15:30 | EKG ---
Test Date: 2022-04-25 Test Time: 18:23:47 Filter Tender Jelly: MEASUREMENT RESULTS: Intervals: Rate: 116 MO: QRSD: 148 QT: 404 QTc: 561 [place]: P: MO: QRS: -1 T: 157 INTERPRETIVE STATEMENTS: Atrial fibrillation with rapid ventricular response Left bundle branch block Abnormal ECG Compared to ECG 09/17/2021 12:30:50 Left bundle-branch block now present Sinus rhythm no longer present Myocardial infarct finding no longer present Prolonged QT interval no longer present Electronically Signed On 04-26-22 15:27:49 BLOW DOWN HELPER by Fabien White
== END 2022-04-25 22:58 | disposition short-term general hospital (02) ==
LOC: ER 16:15
DX: N39.0 Urinary tract infection, site not specified (principal); J91.8 Pleural effusion in other conditions classified elsewhere; I48.19 Other persistent atrial fibrillation; Z79.01 Long term (current) use of anticoagulants; K70.30 Alcoholic cirrhosis of liver without ascites; I27.0 Primary pulmonary hypertension; I35.0 Nonrheumatic aortic (valve) stenosis; Z20.822 Contact with and (suspected) exposure to COVID-19
CPT/HCPCS: 93005 ×2; 87088; 85025; 87086; 80048; 36415; 82140; 86900; 83735; 86850; 85610; 86901; 80076; 83605; 81003; 84484; 83690; 83880; 71045; 51702; 99285; 87811; J1160; C9113; J2185; J7040; J7030